=== PATIENT | female | born 1935 | race Caucasian/White ===

== ENCOUNTER 2017-02-03 13:20 | Inpatient (IN) | payer OTHER ==
[~2017-02-03] VITALS: Ht 160 cm; Wt 73.1 kg
[2017-02-03 15:30] VITALS: BP 159/79
[2017-02-03] MEDS ORDERED: DEXTROSE 50% 25 GM / 50ML DISP.SYRIN. IV PRN (15:45)
[2017-02-03] MEDS ORDERED: ACETAMINOPHEN 325 MG TABLET. PO PRN (16:15)
[2017-02-03] MEDS ORDERED: FURO40SO5 INJ (16:15)
[2017-02-03] MEDS ORDERED: FURO-68 INJ (16:15)
[2017-02-03] MEDS ORDERED: GLIP5TAB10 PO (16:22)
[2017-02-03] MEDS ORDERED: AMLO10TA2 PO (16:22)
[2017-02-03] MEDS ORDERED: ATEN50TA PO (16:22)
[2017-02-03] MEDS ORDERED: LOSA100T6 PO (16:23)
[2017-02-03] MEDS ORDERED: ATOR40TA59 PO (16:24)
[2017-02-03] MEDS ORDERED: WARF2TAB PO (16:29)
[2017-02-03] MEDS ORDERED: ACET325T9 PO (16:29)
[2017-02-03 16:35] LABS: BASO % 0 % (0-3); EOS % 1 % (0-3); HEMOGLOBIN 11.7 g/dL (12.0-15.5); LYMPH # 1.4 x10^3/uL (1.0-4.8); LYMPH % 19 % (24-48); MEAN CORPUSCULAR HEMOGLOBIN 33 pg (25-35); MEAN CORPUSCULAR HGB CONC 34 g/dL (31-37); MEAN CORPUSCULAR VOLUME 97 fL (79-100); MONO % 8 % (0-9); NEUT % 71 % (31-73); PLATELET COUNT 355 x10^3/uL (140-400); RED BLOOD COUNT 3.59 x10^6/uL (3.50-5.40); RED CELL DISTRIBUTION WIDTH 15.1 % (11.5-14.5); WHITE BLOOD COUNT 7.2 x10^3/uL (4.0-11.0)
[2017-02-03 16:40] LABS: INR 2.3 (0.8-1.1); PROTHROMBIN TIME PATIENT 23.8 SEC (11.7-14.0)
[2017-02-03 16:56] LABS: CALCIUM 9.2 mg/dL (8.5-10.1); CREATININE 0.9 mg/dL (0.6-1.0); GFR 59.9; MAGNESIUM 1.4 mg/dL (1.8-2.4); POTASSIUM 3.8 mmol/L (3.5-5.1); TOTAL BILIRUBIN 0.9 mg/dL (0.2-1.0); TOTAL PROTEIN 7.9 g/dL (6.4-8.2)
--- NOTE | 2017-02-03 17:13 | RAD ---
CT chest without IV contrast History: Pleural effusion and infiltrates. Comparison: None. Technique: Helical CT of the chest was performed without intravenous contrast. Axial, sagittal, and coronal reconstructions were obtained. One or more of the following individualized dose reduction techniques were utilized for the study: Automated exposure control Adjustment of mA and/or kV according to patient's size Use of iterative reconstruction technique. Findings: Thyroid is symmetric. Trachea and mainstem bronchi appear patent. Aortic atherosclerosis is present. Coronary artery calcifications are present. Cardiac chambers appear enlarged. No pericardial thickening is identified. Small bilateral pleural effusions, right larger than left, are seen. Bilateral lower lobe consolidation is favored to be atelectasis. There is no evidence of mild septal thickening, raising possibility of mild interstitial edema. 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 Impression: 1. Small bilateral pleural effusions, right larger the left. 2. Bilateral lower lobe consolidation, favored to be atelectasis. 3. There may be component of mild interstitial edema.
--- NOTE | 2017-02-03 17:31 | RAD ---
Exam: PA and lateral chest radiograph History: Congestive heart failure. Comparison: 12/14/2005. Findings: Cardiac silhouette appears enlarged. Aortic atherosclerosis is seen. Small bilateral pleural effusions are noted, right larger than left. There is evidence of thickening of the fissure and increased vascularity, compatible with mild congestive heart failure. Bilateral lower lobe densities are seen adjacent to the pleural fluid, could be atelectasis. Impression: Mild congestive heart failure with bilateral pleural effusions.
[2017-02-03] MEDS ORDERED: FUROSEMIDE 40 MG TABLET. PO SCH (18:02)
[2017-02-03] MEDS ORDERED: FUROSEMIDE 40 MG/4 ML VIAL. IVP ONE (18:15)
[2017-02-03] MEDS: WARFARIN 2 MG TABLET. PO SCH (18:32)
[2017-02-03 19:00] VITALS: BP 144/78
[2017-02-03] MEDS: ATORVASTATIN CALCIUM 40 MG TABLET. PO SCH (20:43)
[2017-02-03] MEDS: ATENOLOL 50 MG TABLET. PO SCH (20:43)
[2017-02-03 23:00] VITALS: BP 121/56
[2017-02-04 03:11] VITALS: BP 139/66
[2017-02-04 06:18] LABS: BASO % 1 % (0-3); EOS % 2 % (0-3); HEMATOCRIT 32.8 % (36.0-47.0); HEMOGLOBIN 11.1 g/dL (12.0-15.5); LYMPH # 1.5 x10^3/uL (1.0-4.8); LYMPH % 24 % (24-48); MEAN CORPUSCULAR HEMOGLOBIN 33 pg (25-35); MEAN CORPUSCULAR HGB CONC 34 g/dL (31-37); MEAN CORPUSCULAR VOLUME 97 fL (79-100); MONO % 12 % (0-9); NEUT % 62 % (31-73); PLATELET COUNT 307 x10^3/uL (140-400); RED BLOOD COUNT 3.39 x10^6/uL (3.50-5.40); RED CELL DISTRIBUTION WIDTH 15.2 % (11.5-14.5); WHITE BLOOD COUNT 6.3 x10^3/uL (4.0-11.0)
[2017-02-04 06:36] LABS: CALCIUM 8.7 mg/dL (8.5-10.1); CREATININE 0.9 mg/dL (0.6-1.0); GFR 59.9; POTASSIUM 3.7 mmol/L (3.5-5.1)
[2017-02-04 06:51] LABS: INR 2.6 (0.8-1.1); PROTHROMBIN TIME PATIENT 26.2 SEC (11.7-14.0)
--- NOTE | 2017-02-04 07:16 | RAD ---
Bilateral lower extremity venous ultrasound, 02/03/2017: History: Leg swelling Duplex evaluation of the deep veins in the lower extremities was performed including grayscale, color-flow and spectral Doppler analysis. The femoral and popliteal veins demonstrate normal compressibility and normal responses to distal augmentation maneuvers. Color imaging of those vessels shows no evidence of intraluminal clot. The visualized deep veins in both calves are patent. IMPRESSION: There is no sonographic evidence of deep vein thrombosis in either lower extremity.
[2017-02-04 07:20] VITALS: BP 134/66
[2017-02-04] MEDS: glipiZIDE 5 MG TABLET PO SCH (08:09)
[2017-02-04] MEDS: FUROSEMIDE 40 MG/4 ML VIAL. IVP SCH (08:09)
[2017-02-04] MEDS: LOSARTAN POTASSIUM 50 MG TABLET. PO SCH (08:10)
[2017-02-04] MEDS: ATENOLOL 50 MG TABLET. PO SCH ×2 (08:11→21:45)
[2017-02-04] MEDS: amLODIPine BESYLATE 10 MG TABLET PO SCH (08:11)
--- NOTE | 2017-02-04 09:33 | PDOC ---
Provider Note Provider Note history and physical dictated # [id number] GEE FAIRBANKS MD Feb 04, 2017 09:33
[2017-02-04] MEDS ORDERED: ASPIRIN 325 MG TABLET PO SCH (10:00)
[2017-02-04] MEDS ORDERED: FUROSEMIDE 40 MG/4 ML VIAL. IVP SCH (10:00)
[2017-02-04] MEDS: POTASSIUM CHLORIDE 20 MEQ TABLET.ER. PO SCH (10:16)
[2017-02-04] MEDS: ASPIRIN CHEWABLE 81 MG TABLET. PO SCH (10:16)
[2017-02-04] MEDS ORDERED: ASPIRIN CHEWABLE 81 MG TABLET. PO ONE (10:30)
--- NOTE | 2017-02-04 10:44 | HP ---
ADMIT DATE: 02/03/2017 LOCATION: Room# 530. HISTORY OF PRESENT ILLNESS: The patient is an 81-year-old white female with history of persistent atrial fibrillation treated with Coumadin, also has diabetes mellitus type 2 with microalbuminuria and history of hypertension, who was admitted to [facility] from my office on 02/03/2017 with a 1-week history of dyspnea on exertion and orthopnea and leg edema. The patient was seen in the office last week and was started on the hydrochlorothiazide 25 mg every day, which she took in the past and had a chest x-ray done which showed evidence of pleural effusions and infiltrates in the bases. She only had an occasional cough and no fever. Her symptoms persisted prompting admission to the hospital with suspected acute congestive heart failure. She received Lasix 40 mg IV after admission yesterday. She feels a little bit better. ALLERGIES: INCLUDE FELODIPINE, LATEX, AND LISINOPRIL CAUSED COUGH IN THE PAST. MEDICATIONS: Include Coumadin 2 mg every day, amlodipine 10 mg every day, atenolol 50 mg b.i.d., glipizide 5 mg every day, hydrochlorothiazide 25 mg every day, losartan 100 mg every day, lovastatin 40 mg b.i.d. She also takes metformin 500 mg 2 at breakfast and 1 at supper, Prilosec 20 mg every day p.r.n., tramadol 50 mg every 6 hours p.r.n. PAST MEDICAL HISTORY: Significant for diabetes mellitus type 2 with microalbuminuria, hypertension, and persistent atrial fibrillation, on Coumadin. She also has a history of a cataract extraction, benign colon polypectomy, vitrectomy in the right eye in 2008, esophageal dilatation in 2001. She had a cardiac catheterization showing normal coronary arteries in 1999. She has a history of diverticulosis and hyperlipidemia. SOCIAL HISTORY: She does not drink alcohol nor does she smoke cigarettes. She is . FAMILY HISTORY: Brother had diabetes mellitus. Mother had breast cancer. Sister had a stroke, diabetes mellitus, pancreatic cancer, and coronary artery disease. REVIEW OF SYSTEMS: GENERAL: There has been no fever, chills, or sweats. CARDIOVASCULAR: Denies any chest pain. PULMONARY: She has a shortness of breath with exertion. No orthopnea. ENDOCRINE: She has diabetes mellitus. SKIN: No rashes. NEUROLOGIC: No focal weakness. The rest of systems reviewed are negative except as stated in history of present illness. PHYSICAL EXAMINATION: VITAL SIGNS: Temperature is 98.2 degrees, apical pulse is irregular at 67, respiratory rate is 16, blood pressure is 132/66, oxygen saturation 96% on 2 liters per nasal cannula. HEENT: Eyes: Gaze is conjugate. Mouth: Tongue is midline. NECK: There is no cervical lymphadenopathy or thyroid enlargement. HEART: Reveals an S1, S2. There is no S3 or murmur. LUNGS: Reveal some fine crackles in the bases. Decreased breath sounds in the bases. ABDOMEN: Soft, nontender. EXTREMITIES: Lower extremities without edema. SKIN: No rashes. NEUROLOGIC: Reveals that she is coherent. No focal weakness in the arms or legs. LABORATORY DATA: White count 9.3; hemoglobin 11.1; platelet count 307,000; 62 polys; and 24 lymphocytes. Sodium 134, potassium 3.7, chloride 106, total CO2 of 28, BUN 10, creatinine 0.7, blood sugar 102. ProBNP was increased to 2462. Troponin levels negative x 2. INR today is 2.6. She had a CAT scan of the chest done yesterday without contrast, which showed small bilateral pleural effusions, larger on the right than the left. Bilateral lower lobe consolidation, thought to be secondary to atelectasis and mild interstitial edema. It did show coronary artery calcifications. She also had a chest x-ray done yesterday showed mild congestive heart failure, bilateral pleural effusions. She also had a venous Doppler of both lower extremities which was negative for deep vein thrombosis. EKG was ordered, but I do not see it on the chart. ASSESSMENT: 1. Acute congestive heart failure. The echocardiogram will show off if it is systolic versus diastolic or combined 2. Coronary artery disease manifested by coronary calcifications. 3. Persistent atrial fibrillation, on Coumadin. 4. Hypertension. 5. Hyperlipidemia. 6. Diabetes mellitus type 2 with microalbuminuria. 7. Bilateral pleural effusions, most likely secondary to congestive heart failure. 8. Bilateral lower lobe atelectasis, most likely secondary to pleural effusions. PLAN: At this time is to continue with IV Lasix. Follow her intake and output. We will order some potassium chloride. We will continue with the atenolol and losartan. We will order atorvastatin since lovastatin is not on formulary. We will consult cardiology and pulmonary. Continue her glipizide. Discontinue the metformin congestive heart failure. An echocardiogram has been ordered. Started on aspirin 81 mg every day for coronary artery disease. We will recheck her labs again tomorrow. She had a pretty good diuresis of 2600 mL with a single dose of Lasix yesterday. Of course, we will discontinue the hydrochlorothiazide. GEE FAIRBANKS MD DR: BRUCE/citlaly JOB#: [id number] / [id number]
--- NOTE | 2017-02-04 10:54 | ACF ---
Admit Criteria Forms Admit Criteria Forms Admit Criteria Forms HEART FAILURE: COMMON COMPLICATIONS Clinical Indications for Inpatient Care (Place 'X' for any and all applicable criteria): Ongoing inpatient care may be indicated for heart failure with ANY ONE of the following (1)(2)(3)(4)(5): [ ]I. Ongoing need for care for primary condition requiring frequent therapy adjustments because of changes in cardiac function (eg, drug dosage changes for drugs that are renally metabolized) [ ]II. New-onset heart failure [ ]III. Heart failure with decreased urine output not responsive to attempts to optimize volume status [ ]IV. Acute cardiac ischemia causing or associated with failure [X]V. Complications of heart failure, including ANY ONE of the following: [ ]a) Pericardial effusion [ ]b) Symptomatic pleural effusion [ ]c) O2 saturation <90% or PO2 < 60 mm Hg (8.0 kPa) on room air or require baseline supplemental O2 [ ]d) Tachypnea [X]e) Dyspnea [ ]f) Syncope [ ]g) Change in mental status [ ]h) Acute renal insufficiency that is severe (reduction of more than 50% in estimated glomerular filtration rate from baseline) or progressive reduction of more than 25% in estimated glomerular filtration rate from baseline, with creatinine continuing to rise) [ ]i) Hemodynamic instability [ ]j) Anasarca [ ]k) Clinically significant metabolic abnormalities due to heart failure (eg, new-onset metabolic acidosis) Extended stay beyond goal length of stay for primary condition may be needed until ALL of the following are present(1)(3): [ ]a) Stable and effective diuretic regimen established (or patient on stable dialysis regimen if in chronic renal failure) [ ]b) Breathing comfortably at rest [ ]c) Saturation of arterial oxygen greater than 90% or at acceptable baseline [ ]d) Pulmonary edema absent or improved [ ]e) Hemodynamic stability [ ]f) Volume status acceptable on oral medication [ ]g) Peripheral or sacral edema absent or improved [ ]h) Renal function stable and manageable at a lower level of care [ ]i) Complications (eg, pleural effusion) resolved or manageable at a lower level of care [ ]j) Patient or caregiver has received written discharge instructions or educational material addressing activity level, diet, discharge medications, follow-up appointment, weight monitoring, and what to do if symptoms worsen The original [employer] content created by [employer] has been revised. The portions of the content which have been revised are identified through the use of italic text or in bold, and [facility] has neither reviewed nor approved the modified material.All other unmodified content is copyright [facility] [employer]. Please see references footnoted in the original [facility] [employer] edition 2016 CAIO MITCHELL Feb 04, 2017 10:54
--- NOTE | 2017-02-04 11:25 | PDOC2 ---
CARDIAC CONSULT DATE OF CONSULT Date of Consult DATE: 02/04/17 TIME: 11:24 REASON FOR CONSULT Reason for Consult: AFIB REFERRING PHYSICIAN Referring Physician: Abdulaziz SOURCE Source: Chart review, Patient HISTORY OF PRESENT ILLNESS HISTORY OF PRESENT ILLNESS This is a pleasant 81 yo female admitted for complains of SOA. Reports that in the last 1-2 weeks she has been developing increasing SOA and TIWARI. Recently her symptoms have been worse with notable orthopnea, dry cough, and increasing leg swelling. Denies any CP, palpitations, dizziness or fainting episodes. She has been compliant with her daily medications. Denies any any excessive fluid intake. She has chronic AFIB and is on coumadin. She went ot her PCP yesterday and was told to come to the hospital due to CHF. Denies any CAD, VTE, syncope. Verbalized that her BP have been erratic "up and down" PAST MEDICAL HISTORY Cardiovascular: AFIB, HTN, Hyperlipidemia Pulmonary: No pertinent hx CENTRAL NERVOUS SYSTEM: Other (No pertinent history) GI: Diverticulosis, GERD, Other (esophageal stricture) Heme/Onc: No pertinent hx Hepatobiliary: No pertinent hx Psych: No pertinent hx Musculoskeletal: Osteoarthritis Infectious disease: No pertinent hx ENT: Other (blind right eye) Renal/: Chronic renal insuff Endocrine: Diabetes (2) Dermatology: No pertinent hx PAST SURGICAL HISTORY Past Surgical History: Cataract Removal, Other (benign colon polypectomy; right eye surgery; [facility] 1999 no significant lesions at that time; esophageal dilatation) FAMILY HISTORY Family History: Coronary Artery Disease (sister), Diabetes (brother), Stroke ( sister) SOCIAL HISTORY Smoke: No ALCOHOL: none Drugs: None Lives: with Family CURRENT MEDICATIONS CURRENT MEDICATIONS Current Medications Medications (Trade) Dose Ordered Sig/Liban Route PRN Reason Start Time Stop Time Status Last Admin Dose Admin Amlodipine Besylate (Norvasc) 10 mg DAILY PO 02/04/17 09:00 02/04/17 08:11 Atenolol (Tenormin) 50 mg BID PO 02/03/17 21:00 02/04/17 08:11 Atorvastatin Calcium (Lipitor) 40 mg QHS PO 02/03/17 21:00 02/03/17 20:43 Glipizide (Glucotrol) 5 mg DAILYWBKFT PO 02/04/17 08:00 02/04/17 08:09 Warfarin Sodium (Coumadin) 2 mg DAILY16 PO 02/03/17 17:30 02/03/17 18:32 Losartan Potassium (Cozaar) 100 mg DAILY PO 02/04/17 09:00 02/04/17 08:10 Furosemide (Lasix) 40 mg DAILY IVP 02/04/17 09:00 02/04/17 08:09 Furosemide (Lasix) 40 mg 1X ONCE IVP 02/03/17 18:15 02/03/17 18:16 DC 02/03/17 18:33 Potassium Chloride (Klor-Con) 20 meq DAILY10 PO 02/04/17 10:00 02/04/17 10:16 Aspirin (Children'S Aspirin) 81 mg 1X ONCE PO 02/04/17 10:30 02/04/17 10:31 DC 02/04/17 10:26 ALLERGIES ALLERGIES: Coded Allergies: latex (Verified Allergy, Intermediate, RASH, 02/03/17) felodipine (Verified Adverse Reaction, Mild, COUGH, 02/03/17) lisinopril (Verified Adverse Reaction, Mild, COUGH, 02/03/17) ROS Review of System 14 point ROS evaluated with pertinent positives noted per HPI PHYSICAL EXAM General: Alert, Oriented X3, Cooperative, No acute distress HEENT: Atraumatic, Mucous membr. moist/pink Lungs: Other (bibasilar crackles) Extremities: No cyanosis, Other (1+ bilateral LE pitting edema) Skin: No breakdown, No significant lesion Neuro: Normal speech, Sensation intact Psych/Mental Status: Mental status NL, Mood NL MUSCULOSKELETAL: Osteoarthritic changes both hands VITALS VITALS Vital Signs Date Time Temp Pulse Resp B/P Pulse Ox O2 Delivery O2 Flow Rate FiO2 02/04/17 08:11 67 132/66 02/04/17 08:00 Nasal Cannula 3.0 02/04/17 07:20 98.2 16 96 98.2 LABS Lab: Laboratory Tests Test 02/03/17 15:30 02/03/17 16:24 02/03/17 20:26 02/04/17 06:00 Glucose (Fingerstick) 91mg/dL (70-99) 162mg/dL (70-99) White Blood Count 7.2x10^3/uL (4.0-11.0) 6.3x10^3/uL (4.0-11.0) Red Blood Count 3.59x10^6/uL (3.50-5.40) 3.39x10^6/uL (3.50-5.40) Hemoglobin 11.7g/dL (12.0-15.5) 11.1g/dL (12.0-15.5) Hematocrit 35.0% (36.0-47.0) 32.8% (36.0-47.0) Mean Corpuscular Volume 97fL (79-100) 97fL (79-100) Mean Corpuscular Hemoglobin 33pg (25-35) 33pg (25-35) Mean Corpuscular Hemoglobin Concent 34g/dL (31-37) 34g/dL (31-37) Red Cell Distribution Width 15.1% (11.5-14.5) 15.2% (11.5-14.5) Platelet Count 355x10^3/uL (140-400) 307x10^3/uL (140-400) Neutrophils (%) (Auto) 71% (31-73) 62% (31-73) Lymphocytes (%) (Auto) 19% (24-48) 24% (24-48) Monocytes (%) (Auto) 8% (0-9) 12% (0-9) Eosinophils (%) (Auto) 1% (0-3) 2% (0-3) Basophils (%) (Auto) 0% (0-3) 1% (0-3) Neutrophils # (Auto) 5.1x10^3uL (1.8-7.7) 3.9x10^3uL (1.8-7.7) Lymphocytes # (Auto) 1.4x10^3/uL (1.0-4.8) 1.5x10^3/uL (1.0-4.8) Monocytes # (Auto) 0.6x10^3/uL (0.0-1.1) 0.7x10^3/uL (0.0-1.1) Eosinophils # (Auto) 0.1x10^3/uL (0.0-0.7) 0.1x10^3/uL (0.0-0.7) Basophils # (Auto) 0.0x10^3/uL (0.0-0.2) 0.0x10^3/uL (0.0-0.2) Prothrombin Time 23.8SEC (11.7-14.0) 26.2SEC (11.7-14.0) Prothromb Time International Ratio 2.3 (0.8-1.1) 2.6 (0.8-1.1) D-Dimer (Radha) 5.10ug/mlFEU (0.00-0.50) Sodium Level 141mmol/L (136-145) 144mmol/L (136-145) Potassium Level 3.8mmol/L (3.5-5.1) 3.7mmol/L (3.5-5.1) Chloride Level 105mmol/L (98-107) 106mmol/L (98-107) Carbon Dioxide Level 23mmol/L (21-32) 28mmol/L (21-32) Anion Gap 13 (6-14) 10 (6-14) Blood Urea Nitrogen 21mg/dL (7-20) 17mg/dL (7-20) Creatinine 0.9mg/dL (0.6-1.0) 0.9mg/dL (0.6-1.0) Estimated GFR (Cockcroft-Gault) 59.9 59.9 BUN/Creatinine Ratio 23 (6-20) Glucose Level 100mg/dL (70-99) 102mg/dL (70-99) Calcium Level 9.2mg/dL (8.5-10.1) 8.7mg/dL (8.5-10.1) Magnesium Level 1.4mg/dL (1.8-2.4) Total Bilirubin 0.9mg/dL (0.2-1.0) Aspartate Amino Transf (AST/SGOT) 19U/L (15-37) Alanine Aminotransferase (ALT/SGPT) 23U/L (14-59) Alkaline Phosphatase 88U/L (46-116) Troponin I Quantitative < 0.017ng/mL (0.000-0.055) < 0.017ng/mL (0.000-0.055) CY-Xnw-I-Type Natriuretic Peptide 2462pg/mL (0-449) Total Protein 7.9g/dL (6.4-8.2) Albumin 4.0g/dL (3.4-5.0) Albumin/Globulin Ratio 1.0 (1.0-1.7) ASSESSMENT/PLAN ASSESSMENT/PLAN 1. Acute CHF possible diastolic dysfunction 2. Chronic AFIB: rate controlled. INR therapeutic. Troponin series normal. Was not on tele overnight 3. HTN: initially labile now better. 4. HLP: statin Recommendations 1. Continue with atenolol and coumadin 2. Could not rule out any underlying PINO. paroxysmal RVR episode is another differential but no notable symptoms corresponding to it. Uncontrolled HTN is another differential. Will await TTE result and will make further recommendations. 3. Good UOP, continue with IV lasix therapy. 4. TSH, EKG pending, replace tele Problems: BRANDT DURAN APRN Feb 04, 2017 11:25
[2017-02-04 11:30] VITALS: BP 131/61
[2017-02-04 15:00] VITALS: BP 137/66
--- NOTE | 2017-02-04 15:35 | EKG ---
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
[2017-02-04] MEDS: WARFARIN 2 MG TABLET. PO SCH (16:23)
--- NOTE | 2017-02-04 17:10 | CARD ---
APPROVED REPORT EXAM: Two-dimensional and M-mode echocardiogram with Doppler and color Doppler. Other Information Quality : AverageHR: 69bpm Rhythm : Atrial Fibrillation INDICATION Congestive Heart Failure RISK FACTORS Obesity 2D DIMENSIONS RVDd3.2 (2.9-3.5cm)Left Atrium(2D)4.3 (1.6-4.0cm) IVSd1.1 (0.7-1.1cm)Aortic Root(2D)2.8 (2.0-3.7cm) LVDd4.4 (3.9-5.9cm)LVOT Diameter2.0 (1.8-2.4cm) PWd1.0 (0.7-1.1cm)LVDs3.2 (2.5-4.0cm) FS (%) 27.5 %SV47.1 ml LVEF(%)53.6 (>50%) Aortic Valve AoV Peak Aries.146.1cm/sAoV VTI31.3cm AO Peak GR.8.5mmHgLVOT Peak Aries.90.0cm/s LVOT VTI 20.44cmAO Mean GR.5mmHg MANI (VMAX)1.63fj8BYC (VTI)2.09cm2 Mitral Valve MV E Fsmmlvny123.8cm/sMV DECEL [id number] MV E Mean Gr.2mmHgMV GCH40gg MVA (PHT)3.84cm2 Pulmonary Valve PV Peak Ikkepqne01.7cm/sPV Peak Grad.3mmHg RVOT VTI10.5cm Tricuspid Valve TR P. [id number]/sRAP [id number] TR Peak Gr.84mwPvKIQB12fyKg LEFT VENTRICLE The left ventricle is normal size. There is normal left ventricular wall thickness. Left ventricle sy stolic function is normal. The Ejection Fraction is 50-55%. There is normal LV segmental wall motion. Tissue Doppler imaging reveals moderate left ventricular diastolic dysfunction. There is no ventricu lar septal defect visualized. RIGHT VENTRICLE The right ventricle is mildly dilated. There is normal right ventricular wall thickness. The right ve ntricular systolic function is normal. ATRIA The left atrium is mildly dilated. The right atrium is moderately dilated. The interatrial septum is intact with no evidence for an atrial septal defect or patent foramen ovale as noted on 2-D or Dopple r imaging. AORTIC VALVE The aortic valve is normal in structure and function. Doppler and Color Flow revealed no significant aortic regurgitation. There is no significant aortic valvular stenosis. MITRAL VALVE Mitral annular calcification is mild. The mitral valve leaflets are calcified but open well. There is no evidence of mitral valve prolapse. There is no mitral valve stenosis. Doppler and Color Flow reve aled mild mitral regurgitation. TRICUSPID VALVE Doppler and Color Flow revealed moderate tricuspid regurgitation. The PA pressure was estimated at 73 mmHg.There is severe pulmonary hypertension. PULMONIC VALVE Doppler and Color Flow revealed no pulmonic valvular regurgitation. There is no pulmonic valvular [place] nosis. GREAT VESSELS The aortic root is normal in size. The ascending aorta is normal in size. The IVC is normal in size a nd collapses >50% with inspiration. PERICARDIAL EFFUSION There is no pleural effusion. There is no evidence of significant pericardial effusion. Critical Notification Critical Value: No <Conclusion> Left ventricle systolic function is normal. The Ejection Fraction is 50-55%. There is normal LV segmental wall motion. Tissue Doppler imaging reveals moderate left ventricular diastolic dysfunction. Doppler and Color Flow revealed moderate tricuspid regurgitation. The PA pressure was estimated at 73 mmHg.There is severe pulmonary hypertension.
--- NOTE | 2017-02-04 17:33 | PDOC ---
PULMONARY PROGRESS NOTES Vitals Vital Signs Date Time Temp Pulse Resp B/P Pulse Ox O2 Delivery O2 Flow Rate FiO2 02/04/17 15:00 96.6 73 22 137/66 97 Nasal Cannula 4.0 96.6 Labs Laboratory Tests Test 02/03/17 15:30 02/03/17 16:24 02/03/17 20:26 02/04/17 06:00 Glucose (Fingerstick) 91mg/dL (70-99) 162mg/dL (70-99) White Blood Count 7.2x10^3/uL (4.0-11.0) 6.3x10^3/uL (4.0-11.0) Red Blood Count 3.59x10^6/uL (3.50-5.40) 3.39x10^6/uL (3.50-5.40) Hemoglobin 11.7g/dL (12.0-15.5) 11.1g/dL (12.0-15.5) Hematocrit 35.0% (36.0-47.0) 32.8% (36.0-47.0) Mean Corpuscular Volume 97fL (79-100) 97fL (79-100) Mean Corpuscular Hemoglobin 33pg (25-35) 33pg (25-35) Mean Corpuscular Hemoglobin Concent 34g/dL (31-37) 34g/dL (31-37) Red Cell Distribution Width 15.1% (11.5-14.5) 15.2% (11.5-14.5) Platelet Count 355x10^3/uL (140-400) 307x10^3/uL (140-400) Neutrophils (%) (Auto) 71% (31-73) 62% (31-73) Lymphocytes (%) (Auto) 19% (24-48) 24% (24-48) Monocytes (%) (Auto) 8% (0-9) 12% (0-9) Eosinophils (%) (Auto) 1% (0-3) 2% (0-3) Basophils (%) (Auto) 0% (0-3) 1% (0-3) Neutrophils # (Auto) 5.1x10^3uL (1.8-7.7) 3.9x10^3uL (1.8-7.7) Lymphocytes # (Auto) 1.4x10^3/uL (1.0-4.8) 1.5x10^3/uL (1.0-4.8) Monocytes # (Auto) 0.6x10^3/uL (0.0-1.1) 0.7x10^3/uL (0.0-1.1) Eosinophils # (Auto) 0.1x10^3/uL (0.0-0.7) 0.1x10^3/uL (0.0-0.7) Basophils # (Auto) 0.0x10^3/uL (0.0-0.2) 0.0x10^3/uL (0.0-0.2) Prothrombin Time 23.8SEC (11.7-14.0) 26.2SEC (11.7-14.0) Prothromb Time International Ratio 2.3 (0.8-1.1) 2.6 (0.8-1.1) D-Dimer (Radha) 5.10ug/mlFEU (0.00-0.50) Sodium Level 141mmol/L (136-145) 144mmol/L (136-145) Potassium Level 3.8mmol/L (3.5-5.1) 3.7mmol/L (3.5-5.1) Chloride Level 105mmol/L (98-107) 106mmol/L (98-107) Carbon Dioxide Level 23mmol/L (21-32) 28mmol/L (21-32) Anion Gap 13 (6-14) 10 (6-14) Blood Urea Nitrogen 21mg/dL (7-20) 17mg/dL (7-20) Creatinine 0.9mg/dL (0.6-1.0) 0.9mg/dL (0.6-1.0) Estimated GFR (Cockcroft-Gault) 59.9 59.9 BUN/Creatinine Ratio 23 (6-20) Glucose Level 100mg/dL (70-99) 102mg/dL (70-99) Calcium Level 9.2mg/dL (8.5-10.1) 8.7mg/dL (8.5-10.1) Magnesium Level 1.4mg/dL (1.8-2.4) Total Bilirubin 0.9mg/dL (0.2-1.0) Aspartate Amino Transf (AST/SGOT) 19U/L (15-37) Alanine Aminotransferase (ALT/SGPT) 23U/L (14-59) Alkaline Phosphatase 88U/L (46-116) Troponin I Quantitative < 0.017ng/mL (0.000-0.055) < 0.017ng/mL (0.000-0.055) QD-Vlb-N-Type Natriuretic Peptide 2462pg/mL (0-449) Total Protein 7.9g/dL (6.4-8.2) Albumin 4.0g/dL (3.4-5.0) Albumin/Globulin Ratio 1.0 (1.0-1.7) Test 02/04/17 08:07 02/04/17 11:36 02/04/17 15:00 02/04/17 16:11 Glucose (Fingerstick) 96mg/dL (70-99) 118mg/dL (70-99) 94mg/dL (70-99) Troponin I Quantitative < 0.017ng/mL (0.000-0.055) Laboratory Tests Test 02/03/17 20:26 02/04/17 06:00 02/04/17 08:07 02/04/17 11:36 Glucose (Fingerstick) 162mg/dL (70-99) 96mg/dL (70-99) 118mg/dL (70-99) White Blood Count 6.3x10^3/uL (4.0-11.0) Red Blood Count 3.39x10^6/uL (3.50-5.40) Hemoglobin 11.1g/dL (12.0-15.5) Hematocrit 32.8% (36.0-47.0) Mean Corpuscular Volume 97fL (79-100) Mean Corpuscular Hemoglobin 33pg (25-35) Mean Corpuscular Hemoglobin Concent 34g/dL (31-37) Red Cell Distribution Width 15.2% (11.5-14.5) Platelet Count 307x10^3/uL (140-400) Neutrophils (%) (Auto) 62% (31-73) Lymphocytes (%) (Auto) 24% (24-48) Monocytes (%) (Auto) 12% (0-9) Eosinophils (%) (Auto) 2% (0-3) Basophils (%) (Auto) 1% (0-3) Neutrophils # (Auto) 3.9x10^3uL (1.8-7.7) Lymphocytes # (Auto) 1.5x10^3/uL (1.0-4.8) Monocytes # (Auto) 0.7x10^3/uL (0.0-1.1) Eosinophils # (Auto) 0.1x10^3/uL (0.0-0.7) Basophils # (Auto) 0.0x10^3/uL (0.0-0.2) Prothrombin Time 26.2SEC (11.7-14.0) Prothromb Time International Ratio 2.6 (0.8-1.1) Sodium Level 144mmol/L (136-145) Potassium Level 3.7mmol/L (3.5-5.1) Chloride Level 106mmol/L (98-107) Carbon Dioxide Level 28mmol/L (21-32) Anion Gap 10 (6-14) Blood Urea Nitrogen 17mg/dL (7-20) Creatinine 0.9mg/dL (0.6-1.0) Estimated GFR (Cockcroft-Gault) 59.9 Glucose Level 102mg/dL (70-99) Calcium Level 8.7mg/dL (8.5-10.1) Troponin I Quantitative < 0.017ng/mL (0.000-0.055) Test 02/04/17 15:00 02/04/17 16:11 Troponin I Quantitative < 0.017ng/mL (0.000-0.055) Glucose (Fingerstick) 94mg/dL (70-99) Medications Active Scripts Medications Dose Route/Sig Days Date Category Dose Instructions Tylenol (Acetaminophen) 325 Mg Tablet 1-2 Tab PO PRN Q4HRS 02/03/17 Reported Coumadin (Warfarin Sodium) 2 Mg Tablet 2 Mg PO DAILY 02/03/17 Reported Atorvastatin Calcium 40 Mg Tablet 40 Mg PO DAILY 02/03/17 Reported Losartan Potassium 100 Mg Tablet 100 Mg PO DAILY 02/03/17 Reported Glipizide 5 Mg Tablet 5 Mg PO DAILY 4/25/17 Reported Atenolol 50 Mg Tablet 50 Mg PO BID 02/03/17 Reported Amlodipine Besylate 10 Mg Tablet 10 Mg PO DAILY 02/03/17 Reported Furosemide 40 Mg/4 Ml Solution 40 Mg INJ DAILY 02/03/17 Reported FIRST DOSE NOW Impression . FULL NOTE DICTATED THANKS AGREE WITH CURRENT RX NEEDS AN OUTPT SLEEP STUDY GUERITA CHONG MD Feb 04, 2017 17:33
[2017-02-04 19:00] VITALS: BP 133/59
[2017-02-04] MEDS: ATORVASTATIN CALCIUM 40 MG TABLET. PO SCH (21:45)
[2017-02-04 23:00] VITALS: BP 133/67
[2017-02-05 03:12] VITALS: BP 140/60
[2017-02-05 05:07] LABS: BASO % 0 % (0-3); EOS % 1 % (0-3); HEMATOCRIT 33.4 % (36.0-47.0); HEMOGLOBIN 11.4 g/dL (12.0-15.5); LYMPH # 1.4 x10^3/uL (1.0-4.8); LYMPH % 23 % (24-48); MEAN CORPUSCULAR HEMOGLOBIN 33 pg (25-35); MEAN CORPUSCULAR HGB CONC 34 g/dL (31-37); MEAN CORPUSCULAR VOLUME 96 fL (79-100); MONO % 13 % (0-9); NEUT % 62 % (31-73); PLATELET COUNT 297 x10^3/uL (140-400); RED BLOOD COUNT 3.47 x10^6/uL (3.50-5.40); RED CELL DISTRIBUTION WIDTH 14.8 % (11.5-14.5); WHITE BLOOD COUNT 5.9 x10^3/uL (4.0-11.0)
[2017-02-05 05:22] LABS: INR 2.7 (0.8-1.1)
[2017-02-05 05:25] LABS: CALCIUM 8.5 mg/dL (8.5-10.1); CHOLESTEROL/HDL RATIO 3.3; CREATININE 0.9 mg/dL (0.6-1.0); GFR 59.9; MAGNESIUM 1.5 mg/dL (1.8-2.4); POTASSIUM 3.3 mmol/L (3.5-5.1)
--- NOTE | 2017-02-05 05:40 | CONS ---
DATE OF CONSULTATION: 02/04/2017 ATTENDING PHYSICIAN: Dr. Cintron. DICTATING PHYSICIAN: Dr. Chong. REASON FOR CONSULTATION: The patient is seen in pulmonary consultation at the request of Dr. Cintron for increasing shortness of air and abnormal chest x-ray. HISTORY OF PRESENT ILLNESS: The patient is an 81-year-old female that presented to Dr. Cintron's office with increasing shortness of breath over the last week, paroxysmal nocturnal dyspnea, pedal edema. She has been started on hydrochlorothiazide a week prior to her presentation with no significant improvement. Now she presented with increasing symptoms. She was admitted. I was asked to see her in consultation. Chest x-ray was obtained. I personally reviewed the x-ray, which revealed bilateral infiltrates compatible with CHF. Echocardiogram revealed a pulmonary artery pressure of 68, left ventricular ejection fraction of 50-55%. She had venous Doppler of lower extremities, which were negative. CT confirmed bilateral effusions. PAST MEDICAL HISTORY: Chronic atrial fibrillation on anticoagulation, diabetes type 2, hyperlipidemia. PAST SURGICAL HISTORY: Status post cataract removal, polypectomy. SOCIAL HISTORY: She has never smoked. Denies any alcohol intake. FAMILY HISTORY: Diabetes, breast cancer. REVIEW OF SYSTEMS: As indicated above, otherwise, a 10-point system was reviewed and negative. Sleep hygiene reveals that she awakens unrefreshed from her sleep. No significant apneic spells have been witnessed. She does not describe excessive daytime sleepiness. CURRENT MEDICATIONS: List was reviewed. PHYSICAL EXAMINATION: GENERAL: Obese individual with a body mass index of 29 in no significant respiratory distress. VITAL SIGNS: Stable. O2 saturation greater than 92%, currently on 2 liters. HEENT: Eyes, the sclerae were nonicteric. NECK: Jugular venous distention ____ not be assessed secondary to body habitus. CHEST: Full expansion. LUNGS: Diminished breath sounds in the bases. No wheezes. CARDIOVASCULAR: Regular rate and rhythm with S1, S2, no S3. ABDOMEN: Soft, nontender, nondistended. EXTREMITIES: No clubbing, cyanosis, some edema. NEUROLOGIC: The patient was awake, alert, following commands. A detailed neuro exam was not performed. LABORATORY DATA: Reviewed. Chest x-ray reviewed as indicated above. CT was reviewed. IMPRESSION: 1. Acute respiratory failure secondary to acute heart failure mostly diastolic. Echocardiogram reveals normal systolic function. 2. Secondary pulmonary hypertension. 3. Suspect obstructive sleep apnea. 4. Persistent atrial fibrillation. 5. Hyperlipidemia. 6. Type 2 diabetes. 7. Abnormal x-ray compatible with congestive heart failure infusions. PLAN: 1. Continue diuresis. 2. Outpatient polysomnogram. 3. Avoids salt intake. Dr. Cintron, I do appreciate the privilege in sharing in the patient's care. GUERITA CHONG MD DR: GLEN/citlaly JOB#: [id number] / [id number]
[2017-02-05 07:00] VITALS: BP 145/60
[2017-02-05] MEDS ORDERED: POTASSIUM CHLORIDE 20 MEQ TABLET.ER. PO ONE ×2 (08:15→09:30)
[2017-02-05] MEDS: glipiZIDE 5 MG TABLET PO SCH (09:00)
[2017-02-05] MEDS: POTASSIUM CHLORIDE 20 MEQ TABLET.ER. PO SCH ×3 (09:00→16:51)
[2017-02-05] MEDS: amLODIPine BESYLATE 10 MG TABLET PO SCH (09:00)
[2017-02-05] MEDS: ASPIRIN CHEWABLE 81 MG TABLET. PO SCH (09:00)
[2017-02-05] MEDS: ATENOLOL 50 MG TABLET. PO SCH (09:00)
[2017-02-05] MEDS ORDERED: MAGNESIUM SULFATE 2GM 50 ML IV ONE ×2 (09:00→09:30)
[2017-02-05] MEDS: FUROSEMIDE 40 MG/4 ML VIAL. IVP SCH (09:01)
[2017-02-05] MEDS: LOSARTAN POTASSIUM 50 MG TABLET. PO SCH (09:01)
--- NOTE | 2017-02-05 09:32 | PDOC ---
PROGRESS NOTES Subjective Subjective feels better. good diuresis. lab reviewed. potassium and magnesium are low. echo discussed. has diastolic dysfunction with severe pulmonary hypertension. Objective Objective Vital Signs Date Time Temp Pulse Resp B/P Pulse Ox O2 Delivery O2 Flow Rate FiO2 02/05/17 09:01 62 145/60 02/05/17 07:00 96.3 20 91 Nasal Cannula 2.0 96.3 Intake and Output 02/05/17 06:59 Intake Total 900 ml Output Total 2000 ml Balance -1100 ml Intake Oral 900 ml Output Urine Total 2000 ml # Voids 7 Physical Exam Abdomen: Soft Heart: Regular rate, Normal S1, Normal S2 Extremities: No edema General: Alert HEENT: Atraumatic Lungs: Clear to auscultation, Other (decreased breath sounds in bases) Neuro: Normal speech Psych/Mental Status: Mental status NL Skin: No rashes Assessment Assessment 1. Acute diastolic congestive heart failure 2. Coronary artery disease manifested by coronary calcifications on ct chest 3. Persistent atrial fibrillation, on Coumadin. 4. Hypertension. 5. Hyperlipidemia. 6. Diabetes mellitus type 2 with microalbuminuria. 7. Bilateral pleural effusions, most likely secondary to congestive heart failure. 8. Bilateral lower lobe atelectasis, most likely secondary to pleural effusions severe pulmonary hypertension. rule out PINO other cause hypokalemia hypomagnesemia Plan Plan of Care continue iv lasix replete kcl and iv magnesium today continue oxygen out patient sleep study continue lovenox for dvt prophylaxis continue aspirin and atenolol Comment Review of Relevant I have reviewed the following items fabi (where applicable) has been applied. Labs Laboratory Tests Test 02/03/17 15:30 02/03/17 16:24 02/03/17 20:26 02/04/17 06:00 Glucose (Fingerstick) 91mg/dL (70-99) 162mg/dL (70-99) White Blood Count 7.2x10^3/uL (4.0-11.0) 6.3x10^3/uL (4.0-11.0) Red Blood Count 3.59x10^6/uL (3.50-5.40) 3.39x10^6/uL (3.50-5.40) Hemoglobin 11.7g/dL (12.0-15.5) 11.1g/dL (12.0-15.5) Hematocrit 35.0% (36.0-47.0) 32.8% (36.0-47.0) Mean Corpuscular Volume 97fL (79-100) 97fL (79-100) Mean Corpuscular Hemoglobin 33pg (25-35) 33pg (25-35) Mean Corpuscular Hemoglobin Concent 34g/dL (31-37) 34g/dL (31-37) Red Cell Distribution Width 15.1% (11.5-14.5) 15.2% (11.5-14.5) Platelet Count 355x10^3/uL (140-400) 307x10^3/uL (140-400) Neutrophils (%) (Auto) 71% (31-73) 62% (31-73) Lymphocytes (%) (Auto) 19% (24-48) 24% (24-48) Monocytes (%) (Auto) 8% (0-9) 12% (0-9) Eosinophils (%) (Auto) 1% (0-3) 2% (0-3) Basophils (%) (Auto) 0% (0-3) 1% (0-3) Neutrophils # (Auto) 5.1x10^3uL (1.8-7.7) 3.9x10^3uL (1.8-7.7) Lymphocytes # (Auto) 1.4x10^3/uL (1.0-4.8) 1.5x10^3/uL (1.0-4.8) Monocytes # (Auto) 0.6x10^3/uL (0.0-1.1) 0.7x10^3/uL (0.0-1.1) Eosinophils # (Auto) 0.1x10^3/uL (0.0-0.7) 0.1x10^3/uL (0.0-0.7) Basophils # (Auto) 0.0x10^3/uL (0.0-0.2) 0.0x10^3/uL (0.0-0.2) Prothrombin Time 23.8SEC (11.7-14.0) 26.2SEC (11.7-14.0) Prothromb Time International Ratio 2.3 (0.8-1.1) 2.6 (0.8-1.1) D-Dimer (Radha) 5.10ug/mlFEU (0.00-0.50) Sodium Level 141mmol/L (136-145) 144mmol/L (136-145) Potassium Level 3.8mmol/L (3.5-5.1) 3.7mmol/L (3.5-5.1) Chloride Level 105mmol/L (98-107) 106mmol/L (98-107) Carbon Dioxide Level 23mmol/L (21-32) 28mmol/L (21-32) Anion Gap 13 (6-14) 10 (6-14) Blood Urea Nitrogen 21mg/dL (7-20) 17mg/dL (7-20) Creatinine 0.9mg/dL (0.6-1.0) 0.9mg/dL (0.6-1.0) Estimated GFR (Cockcroft-Gault) 59.9 59.9 BUN/Creatinine Ratio 23 (6-20) Glucose Level 100mg/dL (70-99) 102mg/dL (70-99) Calcium Level 9.2mg/dL (8.5-10.1) 8.7mg/dL (8.5-10.1) Magnesium Level 1.4mg/dL (1.8-2.4) Total Bilirubin 0.9mg/dL (0.2-1.0) Aspartate Amino Transf (AST/SGOT) 19U/L (15-37) Alanine Aminotransferase (ALT/SGPT) 23U/L (14-59) Alkaline Phosphatase 88U/L (46-116) Troponin I Quantitative < 0.017ng/mL (0.000-0.055) < 0.017ng/mL (0.000-0.055) JK-Nhm-M-Type Natriuretic Peptide 2462pg/mL (0-449) Total Protein 7.9g/dL (6.4-8.2) Albumin 4.0g/dL (3.4-5.0) Albumin/Globulin Ratio 1.0 (1.0-1.7) Test 02/04/17 08:07 02/04/17 11:36 02/04/17 15:00 02/04/17 16:11 Glucose (Fingerstick) 96mg/dL (70-99) 118mg/dL (70-99) 94mg/dL (70-99) Troponin I Quantitative < 0.017ng/mL (0.000-0.055) Test 02/05/17 04:30 02/05/17 07:33 White Blood Count 5.9x10^3/uL (4.0-11.0) Red Blood Count 3.47x10^6/uL (3.50-5.40) Hemoglobin 11.4g/dL (12.0-15.5) Hematocrit 33.4% (36.0-47.0) Mean Corpuscular Volume 96fL (79-100) Mean Corpuscular Hemoglobin 33pg (25-35) Mean Corpuscular Hemoglobin Concent 34g/dL (31-37) Red Cell Distribution Width 14.8% (11.5-14.5) Platelet Count 297x10^3/uL (140-400) Neutrophils (%) (Auto) 62% (31-73) Lymphocytes (%) (Auto) 23% (24-48) Monocytes (%) (Auto) 13% (0-9) Eosinophils (%) (Auto) 1% (0-3) Basophils (%) (Auto) 0% (0-3) Neutrophils # (Auto) 3.7x10^3uL (1.8-7.7) Lymphocytes # (Auto) 1.4x10^3/uL (1.0-4.8) Monocytes # (Auto) 0.7x10^3/uL (0.0-1.1) Eosinophils # (Auto) 0.1x10^3/uL (0.0-0.7) Basophils # (Auto) 0.0x10^3/uL (0.0-0.2) Prothrombin Time 27.0SEC (11.7-14.0) Prothromb Time International Ratio 2.7 (0.8-1.1) Sodium Level 141mmol/L (136-145) Potassium Level 3.3mmol/L (3.5-5.1) Chloride Level 106mmol/L (98-107) Carbon Dioxide Level 28mmol/L (21-32) Anion Gap 7 (6-14) Blood Urea Nitrogen 16mg/dL (7-20) Creatinine 0.9mg/dL (0.6-1.0) Estimated GFR (Cockcroft-Gault) 59.9 Glucose Level 93mg/dL (70-99) Calcium Level 8.5mg/dL (8.5-10.1) Magnesium Level 1.5mg/dL (1.8-2.4) Triglycerides Level 79mg/dL (0-150) Cholesterol Level 129mg/dL (0-200) LDL Cholesterol, Calculated 74mg/dL (0-100) VLDL Cholesterol, Calculated 16mg/dL (0-40) Non-HDL Cholesterol Calculated 90mg/dL (0-129) HDL Cholesterol 39mg/dL (40-60) Cholesterol/HDL Ratio 3.3 Glucose (Fingerstick) 101mg/dL (70-99) Laboratory Tests Test 02/04/17 11:36 02/04/17 15:00 02/04/17 16:11 02/05/17 04:30 Glucose (Fingerstick) 118mg/dL (70-99) 94mg/dL (70-99) Troponin I Quantitative < 0.017ng/mL (0.000-0.055) White Blood Count 5.9x10^3/uL (4.0-11.0) Red Blood Count 3.47x10^6/uL (3.50-5.40) Hemoglobin 11.4g/dL (12.0-15.5) Hematocrit 33.4% (36.0-47.0) Mean Corpuscular Volume 96fL (79-100) Mean Corpuscular Hemoglobin 33pg (25-35) Mean Corpuscular Hemoglobin Concent 34g/dL (31-37) Red Cell Distribution Width 14.8% (11.5-14.5) Platelet Count 297x10^3/uL (140-400) Neutrophils (%) (Auto) 62% (31-73) Lymphocytes (%) (Auto) 23% (24-48) Monocytes (%) (Auto) 13% (0-9) Eosinophils (%) (Auto) 1% (0-3) Basophils (%) (Auto) 0% (0-3) Neutrophils # (Auto) 3.7x10^3uL (1.8-7.7) Lymphocytes # (Auto) 1.4x10^3/uL (1.0-4.8) Monocytes # (Auto) 0.7x10^3/uL (0.0-1.1) Eosinophils # (Auto) 0.1x10^3/uL (0.0-0.7) Basophils # (Auto) 0.0x10^3/uL (0.0-0.2) Prothrombin Time 27.0SEC (11.7-14.0) Prothromb Time International Ratio 2.7 (0.8-1.1) Sodium Level 141mmol/L (136-145) Potassium Level 3.3mmol/L (3.5-5.1) Chloride Level 106mmol/L (98-107) Carbon Dioxide Level 28mmol/L (21-32) Anion Gap 7 (6-14) Blood Urea Nitrogen 16mg/dL (7-20) Creatinine 0.9mg/dL (0.6-1.0) Estimated GFR (Cockcroft-Gault) 59.9 Glucose Level 93mg/dL (70-99) Calcium Level 8.5mg/dL (8.5-10.1) Magnesium Level 1.5mg/dL (1.8-2.4) Triglycerides Level 79mg/dL (0-150) Cholesterol Level 129mg/dL (0-200) LDL Cholesterol, Calculated 74mg/dL (0-100) VLDL Cholesterol, Calculated 16mg/dL (0-40) Non-HDL Cholesterol Calculated 90mg/dL (0-129) HDL Cholesterol 39mg/dL (40-60) Cholesterol/HDL Ratio 3.3 Test 02/05/17 07:33 Glucose (Fingerstick) 101mg/dL (70-99) Medications Current Medications Dextrose (Dextrose 50%-Water Syringe) 12.5 gm PRN Q15MIN PRN IV SEE COMMENTS; Start 02/03/17 at 15:45 Acetaminophen (Tylenol) 325 mg PRN Q4HRS PRN PO MILD PAIN; Start 02/03/17 at 16 :15 Amlodipine Besylate (Norvasc) 10 mg DAILY PO Last administered on 02/05/17 09: 00; Start 02/04/17 at 09:00 Atenolol (Tenormin) 50 mg BID PO Last administered on 02/05/17 09:00; Start at 21:00 Atorvastatin Calcium (Lipitor) 40 mg QHS PO Last administered on 02/04/17 21: 45; Start 02/03/17 at 21:00 Furosemide (Lasix) 40 mg DAILY PO ; Start 02/03/17 at 18:02; Status Cancel Glipizide (Glucotrol) 5 mg DAILYWBKFT PO Last administered on 02/05/17 09:00; Start 02/04/17 at 08:00 Warfarin Sodium (Coumadin) 2 mg DAILY16 PO Last administered on 02/04/17 16:23 ; Start 02/03/17 at 17:30 Losartan Potassium (Cozaar) 100 mg DAILY PO Last administered on 02/05/17 09: 01; Start 02/04/17 at 09:00 Warfarin Sodium (Coumadin Per Physician) 1 each PRN DAILY PRN MC SEE COMMENTS Last administered on 02/04/17 13:44; Start 02/03/17 at 17:15 Furosemide (Lasix) 40 mg DAILY IVP Last administered on 02/05/17 09:01; Start 02/04/17 at 09:00 Furosemide (Lasix) 40 mg 1X ONCE IVP Last administered on 02/03/17 18:33; Start 02/03/17 at 18:15; Stop 02/03/17 at 18:16; Status DC Furosemide (Lasix) 40 mg DAILY IVP ; Start 02/04/17 at 10:00; Stop 02/04/17 at 10:00; Status DC Potassium Chloride (Klor-Con) 20 meq DAILY10 PO Last administered on 02/05/17 09:00; Start 02/04/17 at 10:00 Aspirin (Dannielle Aspirin) 81 mg DAILYWBKFT PO ; Start 02/04/17 at 10:00; Stop at 10:09; Status DC Aspirin (Children'S Aspirin) 81 mg DAILYWBKFT PO Last administered on 09:00; Start 02/04/17 at 10:15 Aspirin (Children'S Aspirin) 81 mg 1X ONCE PO Last administered on 02/04/17 10:26; Start 02/04/17 at 10:30; Stop 02/04/17 at 10:31; Status DC Potassium Chloride 40 meq 40 meq 1X ONCE PO Last administered on 02/05/17 08: 59; Start 02/05/17 at 08:15; Stop 02/05/17 at 08:16; Status DC Magnesium Sulfate/ Dextrose (Magnesium Sulfate PREMIX 2GM) 50 ml @ 25 mls/hr 1X ONCE IV Last administered on 02/05/17 08:59; Start 02/05/17 at 09:00; Stop 02/05/17 at 10:59 Active Scripts Active Reported Tylenol (Acetaminophen) 325 Mg Tablet 1-2 Tab PO PRN Q4HRS Coumadin (Warfarin Sodium) 2 Mg Tablet 2 Mg PO DAILY Atorvastatin Calcium 40 Mg Tablet 40 Mg PO DAILY Losartan Potassium 100 Mg Tablet 100 Mg PO DAILY Glipizide 5 Mg Tablet 5 Mg PO DAILY Atenolol 50 Mg Tablet 50 Mg PO BID Amlodipine Besylate 10 Mg Tablet 10 Mg PO DAILY Furosemide 40 Mg/4 Ml Solution 40 Mg INJ DAILY FIRST DOSE NOW Vitals/I & O Vital Sign - Last 24 Hours 02/04/17 02/04/17 02/04/17 02/04/17 11:30 15:00 19:00 20:12 Temp 97.9 96.6 97.6 97.9 96.6 97.6 Pulse 78 73 104 Resp 16 20 B/P 131/61 137/66 133/59 Pulse Ox 98 97 92 O2 Delivery BiPAP/CPAP Nasal Cannula Nasal Cannula Nasal Cannula O2 Flow Rate 2.0 4.0 2.0 02/04/17 02/04/17 02/05/17 02/05/17 21:45 23:00 03:12 07:00 Temp 97.6 97.5 96.3 97.6 97.5 96.3 Pulse 104 76 69 62 Resp 20 20 B/P 133/59 133/67 140/60 145/60 Pulse Ox 91 96 91 O2 Delivery Nasal Cannula Nasal Cannula Nasal Cannula O2 Flow Rate 2.0 02/05/17 02/05/17 02/05/17 09:00 09:00 09:01 Pulse 62 62 62 B/P 145/60 145/60 145/60 Intake and Output 02/04/17 02/04/17 02/05/17 14:59 22:59 06:59 Intake Total 690 ml 210 ml Output Total 1700 ml 300 ml Balance 690 ml -1490 ml -300 ml GEE FAIRBANKS MD Feb 05, 2017 09:32
[2017-02-05 11:00] VITALS: BP 128/53
--- NOTE | 2017-02-05 12:21 | PDOC ---
[facility] CARE[facility] SERVICES DIRECTOR 02/05/17 1221: CARDIO Progress Notes Date and Time Date of Service 02/05/2017 Time of Evaluation 1200 Subjective Subjective: No Chest Pain, No shortness of breath, No Palpitations, No Dizziness, Other (feels better today) Vitals Vitals Vital Signs Date Time Temp Pulse Resp B/P Pulse Ox O2 Delivery O2 Flow Rate FiO2 02/05/17 09:01 62 145/60 02/05/17 07:00 96.3 20 91 Nasal Cannula 2.0 96.3 Weight Weight [ ] Input and Output Intake and Output Intake and Output 02/05/17 06:59 Intake Total 900 ml Output Total 2000 ml Balance -1100 ml Intake Oral 900 ml Output Urine Total 2000 ml # Voids 7 Laboratory Labs Laboratory Tests Test 02/04/17 15:00 02/04/17 16:11 02/05/17 04:30 02/05/17 07:33 Troponin I Quantitative < 0.017ng/mL (0.000-0.055) Glucose (Fingerstick) 94mg/dL (70-99) 101mg/dL (70-99) White Blood Count 5.9x10^3/uL (4.0-11.0) Red Blood Count 3.47x10^6/uL (3.50-5.40) Hemoglobin 11.4g/dL (12.0-15.5) Hematocrit 33.4% (36.0-47.0) Mean Corpuscular Volume 96fL (79-100) Mean Corpuscular Hemoglobin 33pg (25-35) Mean Corpuscular Hemoglobin Concent 34g/dL (31-37) Red Cell Distribution Width 14.8% (11.5-14.5) Platelet Count 297x10^3/uL (140-400) Neutrophils (%) (Auto) 62% (31-73) Lymphocytes (%) (Auto) 23% (24-48) Monocytes (%) (Auto) 13% (0-9) Eosinophils (%) (Auto) 1% (0-3) Basophils (%) (Auto) 0% (0-3) Neutrophils # (Auto) 3.7x10^3uL (1.8-7.7) Lymphocytes # (Auto) 1.4x10^3/uL (1.0-4.8) Monocytes # (Auto) 0.7x10^3/uL (0.0-1.1) Eosinophils # (Auto) 0.1x10^3/uL (0.0-0.7) Basophils # (Auto) 0.0x10^3/uL (0.0-0.2) Prothrombin Time 27.0SEC (11.7-14.0) Prothromb Time International Ratio 2.7 (0.8-1.1) Sodium Level 141mmol/L (136-145) Potassium Level 3.3mmol/L (3.5-5.1) Chloride Level 106mmol/L (98-107) Carbon Dioxide Level 28mmol/L (21-32) Anion Gap 7 (6-14) Blood Urea Nitrogen 16mg/dL (7-20) Creatinine 0.9mg/dL (0.6-1.0) Estimated GFR (Cockcroft-Gault) 59.9 Glucose Level 93mg/dL (70-99) Calcium Level 8.5mg/dL (8.5-10.1) Magnesium Level 1.5mg/dL (1.8-2.4) Triglycerides Level 79mg/dL (0-150) Cholesterol Level 129mg/dL (0-200) LDL Cholesterol, Calculated 74mg/dL (0-100) VLDL Cholesterol, Calculated 16mg/dL (0-40) Non-HDL Cholesterol Calculated 90mg/dL (0-129) HDL Cholesterol 39mg/dL (40-60) Cholesterol/HDL Ratio 3.3 Test 02/05/17 11:15 Glucose (Fingerstick) 153mg/dL (70-99) Physical Exam HEENT: Neck Supple W Full Motion Chest: Symmetric LUNGS: Other (bibasilar crackles) Heart: S1S2, RRR (AFIB with episodes of HR in the 40s) Abdomen: Soft N/T Extremities: No Calf Tenderness, Other (trace to 1 + bilateral LE edema) Neurology: alert, oriented, follow commands Assessment Assessment 1. Acute CHF diastolic dysfunction: improved. TTE with normal wall motion and preserved EF. Suspect from #2. 2. Severe pulmonary HTN: nonsmoker. suspect associated PINO. Pulmonary following 2. Chronic AFIB: rate controlled. INR 2.7. Episodes of HR 40s, mainly at sleep ( vagal) 3. HTN: controlled 4. HLP: statin 5. Hypokalemia/Hypomagnesemia Recommendations 1. Continue with coumadin per PCP. Will decrease atenolol dosing 2. Would consider event monitor with notable bradycardia episodes 3. Continue IV lasix therapy 4. Replace Mg and K. 5. TSH pending ELIZABETH VAN MD 02/05/17 [id number]: CARDIO Progress Notes Plan Plan Pt. seen and examined. Agree with above [employer] note. No acute events overnight. Pt. feels better this a.m. I had a long discussion with her and her and explained diastolic dysfunction and pulm HTN Suspect her pulm HTN is multifactorial. Will continue diuresis and stabilization. Will repeat echo in 2-4 weeks, if she still has elevated pressures then can consider outpt RHC. Will f/u tomorrow. Anticipate dc in a.m if ok with others. BRANDT DURAN APRN Feb 05, 2017 12:21 ELIZABETH VAN MD Feb 05, 2017 22:56
[2017-02-05 15:00] VITALS: BP 132/65
[2017-02-05] MEDS: WARFARIN 2 MG TABLET. PO SCH (16:49)
[2017-02-05 19:00] VITALS: BP 153/61
--- NOTE | 2017-02-05 20:09 | PDOC ---
PULMONARY PROGRESS NOTES Subjective PT FEELS BETTER Vitals Vital Signs Date Time Temp Pulse Resp B/P Pulse Ox O2 Delivery O2 Flow Rate FiO2 02/05/17 15:00 96.8 78 20 132/65 96 Nasal Cannula 2.0 96.8 General: Alert Lungs: Clear, Crackles Cardiovascular: S1, S2 Abdomen: Soft Neuro Exam: Alert Extremities: Other (EDEMA) Skin: Warm Labs Laboratory Tests Test 02/03/17 20:26 02/04/17 06:00 02/04/17 08:07 02/04/17 11:36 Glucose (Fingerstick) 162mg/dL (70-99) 96mg/dL (70-99) 118mg/dL (70-99) White Blood Count 6.3x10^3/uL (4.0-11.0) Red Blood Count 3.39x10^6/uL (3.50-5.40) Hemoglobin 11.1g/dL (12.0-15.5) Hematocrit 32.8% (36.0-47.0) Mean Corpuscular Volume 97fL (79-100) Mean Corpuscular Hemoglobin 33pg (25-35) Mean Corpuscular Hemoglobin Concent 34g/dL (31-37) Red Cell Distribution Width 15.2% (11.5-14.5) Platelet Count 307x10^3/uL (140-400) Neutrophils (%) (Auto) 62% (31-73) Lymphocytes (%) (Auto) 24% (24-48) Monocytes (%) (Auto) 12% (0-9) Eosinophils (%) (Auto) 2% (0-3) Basophils (%) (Auto) 1% (0-3) Neutrophils # (Auto) 3.9x10^3uL (1.8-7.7) Lymphocytes # (Auto) 1.5x10^3/uL (1.0-4.8) Monocytes # (Auto) 0.7x10^3/uL (0.0-1.1) Eosinophils # (Auto) 0.1x10^3/uL (0.0-0.7) Basophils # (Auto) 0.0x10^3/uL (0.0-0.2) Prothrombin Time 26.2SEC (11.7-14.0) Prothromb Time International Ratio 2.6 (0.8-1.1) Sodium Level 144mmol/L (136-145) Potassium Level 3.7mmol/L (3.5-5.1) Chloride Level 106mmol/L (98-107) Carbon Dioxide Level 28mmol/L (21-32) Anion Gap 10 (6-14) Blood Urea Nitrogen 17mg/dL (7-20) Creatinine 0.9mg/dL (0.6-1.0) Estimated GFR (Cockcroft-Gault) 59.9 Glucose Level 102mg/dL (70-99) Calcium Level 8.7mg/dL (8.5-10.1) Troponin I Quantitative < 0.017ng/mL (0.000-0.055) Test 02/04/17 15:00 02/04/17 16:11 02/05/17 04:30 02/05/17 07:33 Troponin I Quantitative < 0.017ng/mL (0.000-0.055) Glucose (Fingerstick) 94mg/dL (70-99) 101mg/dL (70-99) White Blood Count 5.9x10^3/uL (4.0-11.0) Red Blood Count 3.47x10^6/uL (3.50-5.40) Hemoglobin 11.4g/dL (12.0-15.5) Hematocrit 33.4% (36.0-47.0) Mean Corpuscular Volume 96fL (79-100) Mean Corpuscular Hemoglobin 33pg (25-35) Mean Corpuscular Hemoglobin Concent 34g/dL (31-37) Red Cell Distribution Width 14.8% (11.5-14.5) Platelet Count 297x10^3/uL (140-400) Neutrophils (%) (Auto) 62% (31-73) Lymphocytes (%) (Auto) 23% (24-48) Monocytes (%) (Auto) 13% (0-9) Eosinophils (%) (Auto) 1% (0-3) Basophils (%) (Auto) 0% (0-3) Neutrophils # (Auto) 3.7x10^3uL (1.8-7.7) Lymphocytes # (Auto) 1.4x10^3/uL (1.0-4.8) Monocytes # (Auto) 0.7x10^3/uL (0.0-1.1) Eosinophils # (Auto) 0.1x10^3/uL (0.0-0.7) Basophils # (Auto) 0.0x10^3/uL (0.0-0.2) Prothrombin Time 27.0SEC (11.7-14.0) Prothromb Time International Ratio 2.7 (0.8-1.1) Sodium Level 141mmol/L (136-145) Potassium Level 3.3mmol/L (3.5-5.1) Chloride Level 106mmol/L (98-107) Carbon Dioxide Level 28mmol/L (21-32) Anion Gap 7 (6-14) Blood Urea Nitrogen 16mg/dL (7-20) Creatinine 0.9mg/dL (0.6-1.0) Estimated GFR (Cockcroft-Gault) 59.9 Glucose Level 93mg/dL (70-99) Calcium Level 8.5mg/dL (8.5-10.1) Magnesium Level 1.5mg/dL (1.8-2.4) Triglycerides Level 79mg/dL (0-150) Cholesterol Level 129mg/dL (0-200) LDL Cholesterol, Calculated 74mg/dL (0-100) VLDL Cholesterol, Calculated 16mg/dL (0-40) Non-HDL Cholesterol Calculated 90mg/dL (0-129) HDL Cholesterol 39mg/dL (40-60) Cholesterol/HDL Ratio 3.3 Thyroid Stimulating Hormone (TSH) 2.026uIU/mL (0.358-3.74) Test 02/05/17 11:15 02/05/17 16:14 Glucose (Fingerstick) 153mg/dL (70-99) 79mg/dL (70-99) Laboratory Tests Test 02/05/17 04:30 02/05/17 07:33 02/05/17 11:15 02/05/17 16:14 White Blood Count 5.9x10^3/uL (4.0-11.0) Red Blood Count 3.47x10^6/uL (3.50-5.40) Hemoglobin 11.4g/dL (12.0-15.5) Hematocrit 33.4% (36.0-47.0) Mean Corpuscular Volume 96fL (79-100) Mean Corpuscular Hemoglobin 33pg (25-35) Mean Corpuscular Hemoglobin Concent 34g/dL (31-37) Red Cell Distribution Width 14.8% (11.5-14.5) Platelet Count 297x10^3/uL (140-400) Neutrophils (%) (Auto) 62% (31-73) Lymphocytes (%) (Auto) 23% (24-48) Monocytes (%) (Auto) 13% (0-9) Eosinophils (%) (Auto) 1% (0-3) Basophils (%) (Auto) 0% (0-3) Neutrophils # (Auto) 3.7x10^3uL (1.8-7.7) Lymphocytes # (Auto) 1.4x10^3/uL (1.0-4.8) Monocytes # (Auto) 0.7x10^3/uL (0.0-1.1) Eosinophils # (Auto) 0.1x10^3/uL (0.0-0.7) Basophils # (Auto) 0.0x10^3/uL (0.0-0.2) Prothrombin Time 27.0SEC (11.7-14.0) Prothromb Time International Ratio 2.7 (0.8-1.1) Sodium Level 141mmol/L (136-145) Potassium Level 3.3mmol/L (3.5-5.1) Chloride Level 106mmol/L (98-107) Carbon Dioxide Level 28mmol/L (21-32) Anion Gap 7 (6-14) Blood Urea Nitrogen 16mg/dL (7-20) Creatinine 0.9mg/dL (0.6-1.0) Estimated GFR (Cockcroft-Gault) 59.9 Glucose Level 93mg/dL (70-99) Calcium Level 8.5mg/dL (8.5-10.1) Magnesium Level 1.5mg/dL (1.8-2.4) Triglycerides Level 79mg/dL (0-150) Cholesterol Level 129mg/dL (0-200) LDL Cholesterol, Calculated 74mg/dL (0-100) VLDL Cholesterol, Calculated 16mg/dL (0-40) Non-HDL Cholesterol Calculated 90mg/dL (0-129) HDL Cholesterol 39mg/dL (40-60) Cholesterol/HDL Ratio 3.3 Thyroid Stimulating Hormone (TSH) 2.026uIU/mL (0.358-3.74) Glucose (Fingerstick) 101mg/dL (70-99) 153mg/dL (70-99) 79mg/dL (70-99) Medications Active Scripts Medications Dose Route/Sig Days Date Category Dose Instructions Tylenol (Acetaminophen) 325 Mg Tablet 1-2 Tab PO PRN Q4HRS 02/03/17 Reported Coumadin (Warfarin Sodium) 2 Mg Tablet 2 Mg PO DAILY 02/03/17 Reported Atorvastatin Calcium 40 Mg Tablet 40 Mg PO DAILY 02/03/17 Reported Losartan Potassium 100 Mg Tablet 100 Mg PO DAILY 02/03/17 Reported Glipizide 5 Mg Tablet 5 Mg PO DAILY 02/03/17 Reported Atenolol 50 Mg Tablet 50 Mg PO BID 02/03/17 Reported Amlodipine Besylate 10 Mg Tablet 10 Mg PO DAILY 02/03/17 Reported Furosemide 40 Mg/4 Ml Solution 40 Mg INJ DAILY 02/03/17 Reported FIRST DOSE NOW Impression . IMPRESSION: 1. Acute respiratory failure secondary to acute heart failure mostly diastolic. Echocardiogram reveals normal systolic function. 2. Secondary pulmonary hypertension. 3. Suspect obstructive sleep apnea. 4. Persistent atrial fibrillation. 5. Hyperlipidemia. 6. Type 2 diabetes. 7. Abnormal x-ray compatible with congestive heart failure infusions. Plan . OUT PT SLEEP STUDY DIURESE 6 MINUTE WALK AT TIMES ECHO OVERESTIMATES THE PAP MAY NEED A RIGHT HEART CATH TO CONFIRM PAP GUERITA CHONG MD Feb 05, 2017 20:09
[2017-02-05] MEDS: ATORVASTATIN CALCIUM 40 MG TABLET. PO SCH (20:33)
[2017-02-05] MEDS: ATENOLOL 25 MG TABLET. PO SCH (20:35)
[2017-02-05] MEDS ORDERED: POTASSIUM CHLORIDE 20 MEQ TABLET.ER. PO SCH (21:00)
[2017-02-05 23:00] VITALS: BP 139/50
[2017-02-06 03:00] VITALS: BP 142/60
[2017-02-06 05:19] LABS: INR 2.2 (0.8-1.1); PROTHROMBIN TIME PATIENT 22.9 SEC (11.7-14.0)
[2017-02-06 05:44] LABS: CALCIUM 8.9 mg/dL (8.5-10.1); CREATININE 0.9 mg/dL (0.6-1.0); GFR 59.9; MAGNESIUM 1.8 mg/dL (1.8-2.4); POTASSIUM 3.5 mmol/L (3.5-5.1)
[2017-02-06 07:00] VITALS: BP 131/84
[2017-02-06] MEDS: glipiZIDE 5 MG TABLET PO SCH (08:40)
[2017-02-06] MEDS: ASPIRIN CHEWABLE 81 MG TABLET. PO SCH (08:40)
[2017-02-06] MEDS: LOSARTAN POTASSIUM 50 MG TABLET. PO SCH (08:41)
[2017-02-06] MEDS: POTASSIUM CHLORIDE 20 MEQ TABLET.ER. PO SCH (08:41)
[2017-02-06] MEDS: FUROSEMIDE 40 MG/4 ML VIAL. IVP SCH (08:41)
[2017-02-06] MEDS: ATENOLOL 25 MG TABLET. PO SCH (08:42)
[2017-02-06] MEDS: amLODIPine BESYLATE 10 MG TABLET PO SCH (08:59)
--- NOTE | 2017-02-06 10:40 | PDOC ---
PROGRESS NOTES Subjective Subjective feels well. not short of breath. ready for dismissal. lab reviewed. Objective Objective Vital Signs Date Time Temp Pulse Resp B/P Pulse Ox O2 Delivery O2 Flow Rate FiO2 02/06/17 08:59 89 131/84 02/06/17 07:00 97.7 18 97 Nasal Cannula 2.0 97.7 Intake and Output 02/06/17 07:00 Intake Total 1450 ml Output Total 800 ml Balance 650 ml Intake Oral 1450 ml Output Urine Total 800 ml # Voids 2 Physical Exam Abdomen: Soft Heart: Regular rate, Normal S1, Normal S2 Extremities: No edema General: Alert HEENT: Atraumatic Lungs: Clear to auscultation Neuro: Normal speech Psych/Mental Status: Mental status NL Skin: No rashes Assessment Assessment Problems Medical Problems:1. Acute diastolic congestive heart failure compensated 2. Coronary artery disease manifested by coronary calcifications on ct chest 3. Persistent atrial fibrillation, on Coumadin. 4. Hypertension. 5. Hyperlipidemia. 6. Diabetes mellitus type 2 with microalbuminuria. 7. Bilateral pleural effusions, most likely secondary to congestive heart failure. 8. Bilateral lower lobe atelectasis, most likely secondary to pleural effusions severe pulmonary hypertension. rule out PINO other cause hypokalemia resolved hypomagnesemia resolved (1) CHF (congestive heart failure) Status: Acute Plan Plan of Care switch to oral lasix dismiss today Comment Review of Relevant I have reviewed the following items fabi (where applicable) has been applied. Labs Laboratory Tests Test 02/04/17 11:36 02/04/17 15:00 02/04/17 16:11 02/05/17 04:30 Glucose (Fingerstick) 118mg/dL (70-99) 94mg/dL (70-99) Troponin I Quantitative < 0.017ng/mL (0.000-0.055) White Blood Count 5.9x10^3/uL (4.0-11.0) Red Blood Count 3.47x10^6/uL (3.50-5.40) Hemoglobin 11.4g/dL (12.0-15.5) Hematocrit 33.4% (36.0-47.0) Mean Corpuscular Volume 96fL (79-100) Mean Corpuscular Hemoglobin 33pg (25-35) Mean Corpuscular Hemoglobin Concent 34g/dL (31-37) Red Cell Distribution Width 14.8% (11.5-14.5) Platelet Count 297x10^3/uL (140-400) Neutrophils (%) (Auto) 62% (31-73) Lymphocytes (%) (Auto) 23% (24-48) Monocytes (%) (Auto) 13% (0-9) Eosinophils (%) (Auto) 1% (0-3) Basophils (%) (Auto) 0% (0-3) Neutrophils # (Auto) 3.7x10^3uL (1.8-7.7) Lymphocytes # (Auto) 1.4x10^3/uL (1.0-4.8) Monocytes # (Auto) 0.7x10^3/uL (0.0-1.1) Eosinophils # (Auto) 0.1x10^3/uL (0.0-0.7) Basophils # (Auto) 0.0x10^3/uL (0.0-0.2) Prothrombin Time 27.0SEC (11.7-14.0) Prothromb Time International Ratio 2.7 (0.8-1.1) Sodium Level 141mmol/L (136-145) Potassium Level 3.3mmol/L (3.5-5.1) Chloride Level 106mmol/L (98-107) Carbon Dioxide Level 28mmol/L (21-32) Anion Gap 7 (6-14) Blood Urea Nitrogen 16mg/dL (7-20) Creatinine 0.9mg/dL (0.6-1.0) Estimated GFR (Cockcroft-Gault) 59.9 Glucose Level 93mg/dL (70-99) Calcium Level 8.5mg/dL (8.5-10.1) Magnesium Level 1.5mg/dL (1.8-2.4) Triglycerides Level 79mg/dL (0-150) Cholesterol Level 129mg/dL (0-200) LDL Cholesterol, Calculated 74mg/dL (0-100) VLDL Cholesterol, Calculated 16mg/dL (0-40) Non-HDL Cholesterol Calculated 90mg/dL (0-129) HDL Cholesterol 39mg/dL (40-60) Cholesterol/HDL Ratio 3.3 Thyroid Stimulating Hormone (TSH) 2.026uIU/mL (0.358-3.74) Test 4/27/17 07:33 02/05/17 11:15 02/05/17 16:14 02/05/17 20:26 Glucose (Fingerstick) 101mg/dL (70-99) 153mg/dL (70-99) 79mg/dL (70-99) 177mg/dL (70-99) Test 02/06/17 04:10 02/06/17 07:51 Prothrombin Time 22.9SEC (11.7-14.0) Prothromb Time International Ratio 2.2 (0.8-1.1) Sodium Level 140mmol/L (136-145) Potassium Level 3.5mmol/L (3.5-5.1) Chloride Level 105mmol/L (98-107) Carbon Dioxide Level 28mmol/L (21-32) Anion Gap 7 (6-14) Blood Urea Nitrogen 17mg/dL (7-20) Creatinine 0.9mg/dL (0.6-1.0) Estimated GFR (Cockcroft-Gault) 59.9 Glucose Level 95mg/dL (70-99) Calcium Level 8.9mg/dL (8.5-10.1) Magnesium Level 1.8mg/dL (1.8-2.4) Glucose (Fingerstick) 96mg/dL (70-99) Laboratory Tests Test 02/05/17 11:15 02/05/17 16:14 02/05/17 20:26 02/06/17 04:10 Glucose (Fingerstick) 153mg/dL (70-99) 79mg/dL (70-99) 177mg/dL (70-99) Prothrombin Time 22.9SEC (11.7-14.0) Prothromb Time International Ratio 2.2 (0.8-1.1) Sodium Level 140mmol/L (136-145) Potassium Level 3.5mmol/L (3.5-5.1) Chloride Level 105mmol/L (98-107) Carbon Dioxide Level 28mmol/L (21-32) Anion Gap 7 (6-14) Blood Urea Nitrogen 17mg/dL (7-20) Creatinine 0.9mg/dL (0.6-1.0) Estimated GFR (Cockcroft-Gault) 59.9 Glucose Level 95mg/dL (70-99) Calcium Level 8.9mg/dL (8.5-10.1) Magnesium Level 1.8mg/dL (1.8-2.4) Test 02/06/17 07:51 Glucose (Fingerstick) 96mg/dL (70-99) Medications Current Medications Dextrose (Dextrose 50%-Water Syringe) 12.5 gm PRN Q15MIN PRN IV SEE COMMENTS; Start 02/03/17 at 15:45 Acetaminophen (Tylenol) 325 mg PRN Q4HRS PRN PO MILD PAIN; Start 02/03/17 at 16 :15 Amlodipine Besylate (Norvasc) 10 mg DAILY PO Last administered on 02/06/17 08: 59; Start 02/04/17 at 09:00 Atenolol (Tenormin) 50 mg BID PO Last administered on 02/05/17 09:00; Start at 21:00; Stop 02/05/17 at 12:11; Status DC Atorvastatin Calcium (Lipitor) 40 mg QHS PO Last administered on 02/05/17 20: 33; Start 02/03/17 at 21:00 Furosemide (Lasix) 40 mg DAILY PO ; Start 02/03/17 at 18:02; Status Cancel Glipizide (Glucotrol) 5 mg DAILYWBKFT PO Last administered on 02/06/17 08:40; Start 02/04/17 at 08:00 Warfarin Sodium (Coumadin) 2 mg DAILY16 PO Last administered on 02/05/17 16:49 ; Start 02/03/17 at 17:30 Losartan Potassium (Cozaar) 100 mg DAILY PO Last administered on 02/06/17 08: 41; Start 02/04/17 at 09:00 Warfarin Sodium (Coumadin Per Physician) 1 each PRN DAILY PRN MC SEE COMMENTS Last administered on 02/05/17 14:42; Start 02/03/17 at 17:15 Furosemide (Lasix) 40 mg DAILY IVP Last administered on 02/06/17 08:41; Start 02/04/17 at 09:00 Furosemide (Lasix) 40 mg 1X ONCE IVP Last administered on 02/03/17 18:33; Start 02/03/17 at 18:15; Stop 02/03/17 at 18:16; Status DC Furosemide (Lasix) 40 mg DAILY IVP ; Start 02/04/17 at 10:00; Stop 02/04/17 at 10:00; Status DC Potassium Chloride (Klor-Con) 20 meq DAILY10 PO Last administered on 02/05/17 09:00; Start 02/04/17 at 10:00; Stop 02/05/17 at 09:27; Status DC Aspirin (Dannielle Aspirin) 81 mg DAILYWBKFT PO ; Start 02/04/17 at 10:00; Stop at 10:09; Status DC Aspirin (Children'S Aspirin) 81 mg DAILYWBKFT PO Last administered on 08:40; Start 02/04/17 at 10:15 Aspirin (Children'S Aspirin) 81 mg 1X ONCE PO Last administered on 02/04/17 10:26; Start 02/04/17 at 10:30; Stop 02/04/17 at 10:31; Status DC Potassium Chloride 40 meq 40 meq 1X ONCE PO Last administered on 02/05/17 08: 59; Start 02/05/17 at 08:15; Stop 02/05/17 at 08:16; Status DC Magnesium Sulfate/ Dextrose (Magnesium Sulfate PREMIX 2GM) 50 ml @ 25 mls/hr 1X ONCE IV Last administered on 02/05/17 08:59; Start 02/05/17 at 09:00; Stop 02/05/17 at 09:36; Status DC Potassium Chloride (Klor-Con) 20 meq BID PO ; Start 02/05/17 at 21:00; Status Cancel Potassium Chloride 40 meq 40 meq 1X ONCE PO ; Start 02/05/17 at 09:30; Stop at 09:36; Status DC Magnesium Sulfate/ Dextrose (Magnesium Sulfate PREMIX 2GM) 50 ml @ 25 mls/hr 1X ONCE IV ; Start 02/05/17 at 09:30; Stop 02/05/17 at 11:29; Status DC Potassium Chloride (Klor-Con) 20 meq BIDWMEALS PO Last administered on 08:41; Start 02/05/17 at 10:30 Atenolol (Tenormin) 25 mg BID PO Last administered on 02/06/17 08:42; Start at 21:00 Active Scripts Active Reported Tylenol (Acetaminophen) 325 Mg Tablet 1-2 Tab PO PRN Q4HRS Coumadin (Warfarin Sodium) 2 Mg Tablet 2 Mg PO DAILY Atorvastatin Calcium 40 Mg Tablet 40 Mg PO DAILY Losartan Potassium 100 Mg Tablet 100 Mg PO DAILY Glipizide 5 Mg Tablet 5 Mg PO DAILY Atenolol 50 Mg Tablet 50 Mg PO BID Amlodipine Besylate 10 Mg Tablet 10 Mg PO DAILY Furosemide 40 Mg/4 Ml Solution 40 Mg INJ DAILY FIRST DOSE NOW Vitals/I & O Vital Sign - Last 24 Hours 02/05/17 02/05/17 02/05/17 02/05/17 11:00 15:00 19:00 20:00 Temp 96.4 96.8 95.7 96.4 96.8 95.7 Pulse 76 78 79 Resp 18 B/P 128/53 132/65 153/61 Pulse Ox 99 96 98 O2 Delivery Nasal Cannula Nasal Cannula Nasal Cannula Nasal Cannula O2 Flow Rate 2.0 2.0 2.0 4.0 02/05/17 02/05/17 02/06/17 02/06/17 20:35 23:00 03:00 07:00 Temp 95.7 95.7 97.7 95.7 95.7 97.7 Pulse 79 75 85 89 Resp 18 B/P 153/61 139/50 142/60 131/84 Pulse Ox 96 97 97 O2 Delivery Nasal Cannula Nasal Cannula Nasal Cannula O2 Flow Rate 2.0 2.0 2.0 02/06/17 02/06/17 02/06/17 08:41 08:42 08:59 Pulse 89 89 89 B/P 131/84 131/84 131/84 Intake and Output 02/05/17 02/05/17 02/06/17 15:00 23:00 07:00 Intake Total 500 ml 950 ml Output Total 800 ml Balance 500 ml 150 ml GEE FAIRBANKS MD Feb 06, 2017 10:40
--- NOTE | 2017-02-06 10:45 | PDOC ---
Provider Note Provider Note discharge summary dictated # [id number] GEE FAIRBANKS MD Feb 06, 2017 10:45
--- NOTE | 2017-02-06 10:46 | DISCH ---
DISCHARGE INSTRUCTIONS Condition on Discharge Condition on Discharge: Stable Activity After Discharge Activity Instructions for Disc: No restrictions Diet after Discharge Diet after Discharge: Cardiac, Diabetic No Calorie Level Contacting the after DC Call your doctor for: If your condition worsens Follow-Up Follow up with: dr. fairbanks next week Warfarin Follow-Up Warfarin Follow UP: next week with dr. fairbanks office visit GEE FAIRBANKS MD Feb 06, 2017 10:46
[2017-02-06] MEDS ORDERED: ATEN25TA PO (10:48)
[2017-02-06] MEDS ORDERED: FURO40TA4 PO (10:48)
[2017-02-06] MEDS ORDERED: POTA20TA4 PO (10:48)
[2017-02-06 11:03] VITALS: BP 146/71
--- NOTE | 2017-02-06 11:48 | PDOC ---
CARDIO Progress Notes Date and Time Date of Service 02/06/2017 Time of Evaluation 1130 Subjective Subjective: No Chest Pain, No shortness of breath, No Palpitations, No Dizziness Vitals Vitals Vital Signs Date Time Temp Pulse Resp B/P Pulse Ox O2 Delivery O2 Flow Rate FiO2 02/06/17 11:03 97.9 77 15 146/71 97 Nasal Cannula 2.0 97.9 Weight Weight [ ] Input and Output Intake and Output Intake and Output 02/06/17 07:00 Intake Total 1450 ml Output Total 800 ml Balance 650 ml Intake Oral 1450 ml Output Urine Total 800 ml # Voids 2 Laboratory Labs Laboratory Tests Test 02/05/17 16:14 02/05/17 20:26 02/06/17 04:10 02/06/17 07:51 Glucose (Fingerstick) 79mg/dL (70-99) 177mg/dL (70-99) 96mg/dL (70-99) Prothrombin Time 22.9SEC (11.7-14.0) Prothromb Time International Ratio 2.2 (0.8-1.1) Sodium Level 140mmol/L (136-145) Potassium Level 3.5mmol/L (3.5-5.1) Chloride Level 105mmol/L (98-107) Carbon Dioxide Level 28mmol/L (21-32) Anion Gap 7 (6-14) Blood Urea Nitrogen 17mg/dL (7-20) Creatinine 0.9mg/dL (0.6-1.0) Estimated GFR (Cockcroft-Gault) 59.9 Glucose Level 95mg/dL (70-99) Calcium Level 8.9mg/dL (8.5-10.1) Magnesium Level 1.8mg/dL (1.8-2.4) Physical Exam HEENT: Neck Supple W Full Motion Chest: Symmetric LUNGS: Other (diminished bases) Heart: S1S2, RRR (AFIB rate controlled) Abdomen: Soft N/T Extremities: No Calf Tenderness, Other (trace LE edema) Neurology: alert, oriented, follow commands Assessment Assessment 1. Acute CHF diastolic dysfunction: improved. TTE with normal wall motion and preserved EF. Suspect from #2. 2. Severe pulmonary HTN: nonsmoker. suspect associated PINO. Pulmonary following 3. Chronic AFIB: rate controlled. no further bradycardia after decrease atenolol 3. HTN: controlled 4. HLP: statin 5. Hypokalemia/Hypomagnesemia: resolved Recommendations 1. Continue with coumadin per PCP. 2 PO lasix therapy and K supplement 3. Will repeat TTE prior to next follow up and will consider for possible RHC 4. OK to DC per cardiac standpoint. Follow up in 3 weeks BRANDT DURAN APRN Feb 06, 2017 11:48
--- NOTE | 2017-02-06 14:00 | PDOC ---
PULMONARY PROGRESS NOTES Subjective PT FEELS BETTER Vitals Vital Signs Date Time Temp Pulse Resp B/P Pulse Ox O2 Delivery O2 Flow Rate FiO2 02/06/17 11:03 97.9 77 15 146/71 97 Nasal Cannula 2.0 97.9 General: Alert Lungs: Clear, Crackles Cardiovascular: S1, S2 Abdomen: Soft Neuro Exam: Alert Extremities: Other (EDEMA) Skin: Warm Labs Laboratory Tests Test 02/04/17 15:00 02/04/17 16:11 02/05/17 04:30 02/05/17 07:33 Troponin I Quantitative < 0.017ng/mL (0.000-0.055) Glucose (Fingerstick) 94mg/dL (70-99) 101mg/dL (70-99) White Blood Count 5.9x10^3/uL (4.0-11.0) Red Blood Count 3.47x10^6/uL (3.50-5.40) Hemoglobin 11.4g/dL (12.0-15.5) Hematocrit 33.4% (36.0-47.0) Mean Corpuscular Volume 96fL (79-100) Mean Corpuscular Hemoglobin 33pg (25-35) Mean Corpuscular Hemoglobin Concent 34g/dL (31-37) Red Cell Distribution Width 14.8% (11.5-14.5) Platelet Count 297x10^3/uL (140-400) Neutrophils (%) (Auto) 62% (31-73) Lymphocytes (%) (Auto) 23% (24-48) Monocytes (%) (Auto) 13% (0-9) Eosinophils (%) (Auto) 1% (0-3) Basophils (%) (Auto) 0% (0-3) Neutrophils # (Auto) 3.7x10^3uL (1.8-7.7) Lymphocytes # (Auto) 1.4x10^3/uL (1.0-4.8) Monocytes # (Auto) 0.7x10^3/uL (0.0-1.1) Eosinophils # (Auto) 0.1x10^3/uL (0.0-0.7) Basophils # (Auto) 0.0x10^3/uL (0.0-0.2) Prothrombin Time 27.0SEC (11.7-14.0) Prothromb Time International Ratio 2.7 (0.8-1.1) Sodium Level 141mmol/L (136-145) Potassium Level 3.3mmol/L (3.5-5.1) Chloride Level 106mmol/L (98-107) Carbon Dioxide Level 28mmol/L (21-32) Anion Gap 7 (6-14) Blood Urea Nitrogen 16mg/dL (7-20) Creatinine 0.9mg/dL (0.6-1.0) Estimated GFR (Cockcroft-Gault) 59.9 Glucose Level 93mg/dL (70-99) Calcium Level 8.5mg/dL (8.5-10.1) Magnesium Level 1.5mg/dL (1.8-2.4) Triglycerides Level 79mg/dL (0-150) Cholesterol Level 129mg/dL (0-200) LDL Cholesterol, Calculated 74mg/dL (0-100) VLDL Cholesterol, Calculated 16mg/dL (0-40) Non-HDL Cholesterol Calculated 90mg/dL (0-129) HDL Cholesterol 39mg/dL (40-60) Cholesterol/HDL Ratio 3.3 Thyroid Stimulating Hormone (TSH) 2.026uIU/mL (0.358-3.74) Test 02/05/17 11:15 02/05/17 16:14 02/05/17 20:26 02/06/17 04:10 Glucose (Fingerstick) 153mg/dL (70-99) 79mg/dL (70-99) 177mg/dL (70-99) Prothrombin Time 22.9SEC (11.7-14.0) Prothromb Time International Ratio 2.2 (0.8-1.1) Sodium Level 140mmol/L (136-145) Potassium Level 3.5mmol/L (3.5-5.1) Chloride Level 105mmol/L (98-107) Carbon Dioxide Level 28mmol/L (21-32) Anion Gap 7 (6-14) Blood Urea Nitrogen 17mg/dL (7-20) Creatinine 0.9mg/dL (0.6-1.0) Estimated GFR (Cockcroft-Gault) 59.9 Glucose Level 95mg/dL (70-99) Calcium Level 8.9mg/dL (8.5-10.1) Magnesium Level 1.8mg/dL (1.8-2.4) Test 02/06/17 07:51 Glucose (Fingerstick) 96mg/dL (70-99) Laboratory Tests Test 02/05/17 16:14 02/05/17 20:26 02/06/17 04:10 02/06/17 07:51 Glucose (Fingerstick) 79mg/dL (70-99) 177mg/dL (70-99) 96mg/dL (70-99) Prothrombin Time 22.9SEC (11.7-14.0) Prothromb Time International Ratio 2.2 (0.8-1.1) Sodium Level 140mmol/L (136-145) Potassium Level 3.5mmol/L (3.5-5.1) Chloride Level 105mmol/L (98-107) Carbon Dioxide Level 28mmol/L (21-32) Anion Gap 7 (6-14) Blood Urea Nitrogen 17mg/dL (7-20) Creatinine 0.9mg/dL (0.6-1.0) Estimated GFR (Cockcroft-Gault) 59.9 Glucose Level 95mg/dL (70-99) Calcium Level 8.9mg/dL (8.5-10.1) Magnesium Level 1.8mg/dL (1.8-2.4) Medications Active Scripts Medications Dose Route/Sig Days Date Category Dose Instructions Tylenol (Acetaminophen) 325 Mg Tablet 1-2 Tab PO PRN Q4HRS 02/03/17 Reported Coumadin (Warfarin Sodium) 2 Mg Tablet 2 Mg PO DAILY 02/03/17 Reported Atorvastatin Calcium 40 Mg Tablet 40 Mg PO DAILY 02/03/17 Reported Losartan Potassium 100 Mg Tablet 100 Mg PO DAILY 02/03/17 Reported Glipizide 5 Mg Tablet 5 Mg PO DAILY 02/03/17 Reported Atenolol 50 Mg Tablet 50 Mg PO BID 02/03/17 Reported Amlodipine Besylate 10 Mg Tablet 10 Mg PO DAILY 02/03/17 Reported Furosemide 40 Mg/4 Ml Solution 40 Mg INJ DAILY 02/03/17 Reported FIRST DOSE NOW Impression . IMPRESSION: 1. Acute respiratory failure secondary to acute heart failure mostly diastolic. Echocardiogram reveals normal systolic function. 2. Secondary pulmonary hypertension. 3. Suspect obstructive sleep apnea. 4. Persistent atrial fibrillation. 5. Hyperlipidemia. 6. Type 2 diabetes. 7. Abnormal x-ray compatible with congestive heart failure infusions. Plan . PT TO D/C TODAY OUT PT SLEEP STUDY DIURESE 6 MINUTE WALK NO NEED FOR 02 AT TIMES ECHO OVERESTIMATES THE PAP MAY NEED A RIGHT HEART CATH TO CONFIRM PAP GUERITA CHONG MD Feb 06, 2017 14:00
--- NOTE | 2017-02-06 18:21 | DS ---
DATE OF DISCHARGE: 02/06/2017 CONSULTANTS: Dr. Blum, Dr. Verde, and Dr. Lizarraga. FINAL DIAGNOSES: 1. Acute diastolic congestive heart failure. 2. Severe pulmonary hypertension. 3. Coronary artery disease manifested by coronary calcifications on a CAT scan of the chest. 4. Persistent atrial fibrillation treated with Coumadin. 5. Hypertension. 6. Hyperlipidemia. 7. Hypokalemia. 8. Hypomagnesemia. 9. Diabetes mellitus type 2 with microalbuminuria. 10. Bilateral pleural effusion secondary to acute diastolic congestive heart failure. HOSPITAL COURSE: The patient is an 81-year-old white female with a history of persistent atrial fibrillation treated with Coumadin, who has diabetes mellitus type 2 with microalbuminuria, history of hypertension, admitted to [facility] from my office on 02/03/2017 with a 1-week history of dyspnea on exertion and lower extremity edema. The patient was admitted to the hospital and had a chest x-ray consistent with congestive heart failure. CAT scan of the chest showed bilateral pleural effusions with passive atelectasis. An echocardiogram showed a preserved left ventricular ejection fraction with severe pulmonary hypertension. The patient was seen by Dr. Blum for Pulmonary and Dr. Lizarraga and Dr. Verde for Cardiology. The patient's INR was therapeutic, and her Coumadin was continued. She was treated with IV Lasix and eventually switched to oral Lasix, and her issue of shortness of breath resolved. She is on oxygen 1 liter per nasal cannula. She diuresed quite well. We will check an oxygen saturation on room air at rest and walking to see if we can discontinue the oxygen. She did have some hypokalemia and hypomagnesemia, which resolved with repletion. She was switched to oral Lasix on the day of dismissal. She will be dismissed to home on Coumadin 2 mg every day, amlodipine 10 mg every day, and atenolol 25 mg b.i.d. She will be dismissed on glipizide 5 mg every day, furosemide 40 mg every day, potassium chloride 20 mEq b.i.d., losartan 100 mg every day, and lovastatin 40 mg b.i.d. Her metformin was discontinued due to the congestive heart failure. Her blood sugars were under good control with glipizide 5 mg every day. Dismissed on Prilosec 20 mg every day p.r.n., tramadol 50 mg every 6 hours p.r.n., and she will follow up in the office next week and also get a prothrombin time and INR done in the office next week when she returns. She will be followed up with the label tacker in a few weeks and have a repeat echocardiogram. Her pulmonary artery pressures are still high. She might need a right heart cardiac catheterization. She will stick to a cardiac diabetic diet. GEE FAIRBANKS MD DR: Danilo JOB#: [id number] / [id number]
[2017-02-07] MEDS ORDERED: FUROSEMIDE 40 MG TABLET. PO SCH (09:00)
== END 2017-02-06 14:00 | disposition home or self-care (01) | DRG 291 ==
LOC: 5 NORTH 13:58
PROVIDERS: ADMIT Internal Medicine; ATTEND Internal Medicine
DX: I11.0 Hypertensive heart disease with heart failure (principal); J96.00 Acute respiratory failure, unspecified whether with hypoxia or hypercapnia; J98.11 Atelectasis; I48.1 Persistent atrial fibrillation; I50.31 Acute diastolic (congestive) heart failure; E11.9 Type 2 diabetes mellitus without complications; E78.5 Hyperlipidemia, unspecified; K57.90 Diverticulosis of intestine, part unspecified, without perforation or abscess without bleeding; M19.90 Unspecified osteoarthritis, unspecified site; E83.42 Hypomagnesemia; E87.6 Hypokalemia; H54.41 Blindness, right eye, normal vision left eye; I25.10 Atherosclerotic heart disease of native coronary artery without angina pectoris; I27.2 Other secondary pulmonary hypertension; I48.2 Chronic atrial fibrillation; K21.9 Gastro-esophageal reflux disease without esophagitis; Z79.01 Long term (current) use of anticoagulants; Z79.84 Long term (current) use of oral hypoglycemic drugs; Z79.899 Other long term (current) drug therapy; Z80.0 Family history of malignant neoplasm of digestive organs; Z80.3 Family history of malignant neoplasm of breast; Z82.3 Family history of stroke; Z82.49 Family history of ischemic heart disease and other diseases of the circulatory system; Z83.3 Family history of diabetes mellitus; Z88.8 Allergy status to other drugs, medicaments and biological substances; Z91.040 Latex allergy status
CPT/HCPCS: 36415; 71020; 71250; 80048; 80053; 80061; 82947; 83735; 83880; 84443; 84484; 85027; 85379; 85610; 93005; 93306; 93970; 94620; J1940; J7060

== ENCOUNTER → 2017-03-13 | Outpatient (CLI) | payer OTHER ==
[~2017-03-13] MED LIST: ACET325T9 PO; AMLO10TA2 PO; ATEN25TA PO; ATEN50TA PO; ATOR40TA59 PO; FURO-68 INJ; FURO40SO5 INJ; FURO40TA4 PO; GLIP5TAB10 PO; LOSA100T6 PO; POTA20TA4 PO; WARF2TAB PO
--- NOTE | 2017-03-13 14:59 | CARD ---
APPROVED REPORT EXAM: Two-dimensional and M-mode echocardiogram with Doppler and color Doppler. Other Information Quality : GoodHR: 81bpm Rhythm : Atrial Fibrillation INDICATION Congestive Heart Failure Pulmonary hypertension 2D DIMENSIONS RVDd3.3 (2.9-3.5cm)Left Atrium(2D)4.5 (1.6-4.0cm) IVSd1.0 (0.7-1.1cm)Aortic Root(2D)2.5 (2.0-3.7cm) LVDd5.1 (3.9-5.9cm)LVOT Diameter2.0 (1.8-2.4cm) PWd1.0 (0.7-1.1cm)LVDs3.4 (2.5-4.0cm) FS (%) 32.3 %SV73.7 ml LVEF(%)60.2 (>50%) Aortic Valve AoV Peak Aries.143.5cm/sAoV VTI33.5cm AO Peak GR.8.2mmHgLVOT Peak Aries.103.6cm/s AO Mean GR.5mmHgAVA (VMAX)2.33cm2 Mitral Valve MV E Peak Gr.12mmHgMV E Mean Gr.3mmHg Pulmonary Valve PV Peak Ceemjiid69.1cm/s Tricuspid Valve TR P. [id number]/sTR Peak Gr.45mmHg Pulmonary Vein S1 Tzsvzktu712.5cm/s LEFT VENTRICLE The left ventricle is normal size. There is normal left ventricular wall thickness. The left ventricu lar systolic function is normal and the ejection fraction is within normal range. The Ejection Fracti on is 55-60%. There is normal LV segmental wall motion. Tissue Doppler assessment suggests moderate l eft ventricular diastolic dysfunction. RIGHT VENTRICLE The right ventricle is normal size. There is normal right ventricular wall thickness. The right ventr icular systolic function is normal. ATRIA The left atrium is mildly dilated. The right atrium is mildly dilated. The interatrial septum is inta ct with no evidence for an atrial septal defect or patent foramen ovale as noted on 2-D or Doppler im aging. AORTIC VALVE The aortic valve is mildly sclerotic. The aortic valve is trileaflet. Doppler and Color Flow revealed no significant aortic regurgitation. There is no significant aortic valvular stenosis. MITRAL VALVE Mitral annular calcification is mild. The mitral valve leaflets are thickened. There is no evidence o f mitral valve prolapse. There is no mitral valve stenosis. Doppler and Color Flow revealed mild mitr al regurgitation. TRICUSPID VALVE Doppler and Color Flow revealed mild tricuspid regurgitation. The pulmonary artery systolic pressure is estimated at 48 mmHg. There is moderate pulmonary hypertension. PULMONIC VALVE Doppler and Color Flow revealed no pulmonic valvular regurgitation. There is no pulmonic valvular flor[place] nosis. GREAT VESSELS The aortic root is normal in size. The ascending aorta is normal in size. The pulmonary artery is nor mal. The IVC is normal in size and collapses >50% with inspiration. PERICARDIAL EFFUSION There is no pleural effusion. There is no evidence of significant pericardial effusion. Critical Notification Critical Value: No <Conclusion> The left ventricular systolic function is normal and the ejection fraction is within normal range. Th e Ejection Fraction is 55-60%. There is normal LV segmental wall motion. Tissue Doppler assessment suggests moderate left ventricular diastolic dysfunction. Doppler and Color Flow revealed mild tricuspid regurgitation. The pulmonary artery systolic pressure is estimated at 48 mmHg. There is moderate pulmonary hypertension.
== END | disposition home or self-care (01) ==
LOC: ECHO 09:40
PROVIDERS: ATTEND Internal Medicine Cardiovascular Disease
DX: I08.1 Rheumatic disorders of both mitral and tricuspid valves (principal); I27.0 Primary pulmonary hypertension; I50.9 Heart failure, unspecified
CPT/HCPCS: 93306

== ENCOUNTER 2017-11-21 06:18 | Inpatient (IN) | payer OTHER ==
[2017-11-21 07:05] LABS: ADD MAN DIFF? NO
[2017-11-21] MEDS: LABETALOL 20 MG/4 ML DISP.SYRIN. IVP ×2 (07:07→07:13)
[2017-11-21] MEDS: ASPIRIN CHEWABLE 81 MG TABLET. PO ×2 (07:10→07:12)
[2017-11-21 07:11] LABS: BASO % 1 % (0-3); EOS # 0.1 x10^3/uL (0.0-0.7); EOS % 1 % (0-3); HEMATOCRIT 38.3 % (36.0-47.0); HEMOGLOBIN 13.1 g/dL (12.0-15.5); LYMPH # 1.2 x10^3/uL (1.0-4.8); LYMPH % 21 % (24-48); MEAN CORPUSCULAR HEMOGLOBIN 33 pg (25-35); MEAN CORPUSCULAR HGB CONC 34 g/dL (31-37); MEAN CORPUSCULAR VOLUME 97 fL (79-100); MONO # 0.6 x10^3/uL (0.0-1.1); MONO % 10 % (0-9); NEUT # 3.7 x10^3uL (1.8-7.7); NEUT % 67 % (31-73); PLATELET COUNT 259 x10^3/uL (140-400); RED BLOOD COUNT 3.95 x10^6/uL (3.50-5.40); RED CELL DISTRIBUTION WIDTH 14.4 % (11.5-14.5); WHITE BLOOD COUNT 5.5 x10^3/uL (4.0-11.0)
[2017-11-21 07:25] LABS: ANION GAP 12 (6-14); BLOOD UREA NITROGEN 21 mg/dL (7-20); CALCIUM 9.9 mg/dL (8.5-10.1); CARBON DIOXIDE 26 mmol/L (21-32); CHLORIDE 101 mmol/L (98-107); CREATININE 0.9 mg/dL (0.6-1.0); GFR 59.8; GLUCOSE 210 mg/dL (70-99); POTASSIUM 3.6 mmol/L (3.5-5.1); SODIUM 139 mmol/L (136-145)
[2017-11-21 07:26] LABS: INR 2.4 (0.8-1.1); PARTIAL THROMBOPLASTIN TIME 37 SEC (24-38); PROTHROMBIN TIME PATIENT 24.7 SEC (11.7-14.0)
[2017-11-21 07:30] LABS: ALBUMIN 3.7 g/dL (3.4-5.0); ALK PHOS 107 U/L (46-116); ALT (SGPT) 7 U/L (14-59); AST (SGOT) 17 U/L (15-37); DIRECT BILIRUBIN 0.2 mg/dL (0.0-0.2); LIPASE 128 U/L (73-393); TOTAL BILIRUBIN 0.6 mg/dL (0.2-1.0); TOTAL PROTEIN 8.6 g/dL (6.4-8.2)
[2017-11-21 07:32] LABS: TROPONINI < 0.017 ng/mL (0.000-0.055)
[2017-11-21 07:36] LABS: NT-PRO BNP 201 pg/mL (0-449)
[2017-11-21] MEDS ORDERED: ONDANSETRON PF 4 MG/2 ML VIAL. IV (08:30)
[2017-11-21] MEDS ORDERED: MORPHINE SULFATE 2 MG/ML DISP.SYRIN. IV (08:30)
[2017-11-21] MEDS: IV NORMAL SALINE 1000ML BAG 1,000 ML IV (09:00)
[2017-11-21] MEDS ORDERED: NITROGLYCERIN SUBLINGUAL 0.4 MG BOTTLE OF 25. SL (09:15)
[2017-11-21] MEDS ORDERED: hydrALAZINE 20 MG/ML VIAL. IVP (12:15)
[2017-11-21] MEDS ORDERED: MAGNESIUM HYDROXIDE 2,400 MG/30 ML ORAL.SUSP. PO (12:15)
[2017-11-21] MEDS ORDERED: POTASSIUM CHLORIDE 20 MEQ TABLET.ER. PO (12:30)
[2017-11-21] MEDS: ACETAMINOPHEN 325 MG TABLET. PO (12:35)
[2017-11-21 12:42] LABS: TROPONINI < 0.017 ng/mL (0.000-0.055)
[2017-11-21] MEDS: LOSARTAN POTASSIUM 50 MG TABLET. PO (12:51)
[2017-11-21] MEDS: POTASSIUM CHLORIDE 20 MEQ TABLET.ER. PO (12:51)
[2017-11-21] MEDS: amLODIPine BESYLATE 10 MG TABLET PO (12:51)
[2017-11-21] MEDS: CARVEDILOL 6.25 MG TABLET. PO ×2 (12:52→17:48)
[2017-11-21] MEDS: glipiZIDE 5 MG TABLET PO (12:52)
[2017-11-21] MEDS: FUROSEMIDE 40 MG TABLET. PO (12:52)
[2017-11-21 13:34] LABS: POC GLUCOSE 166 mg/dL (70-99)
[2017-11-21 15:00] LABS: TROPONINI < 0.017 ng/mL (0.000-0.055)
[2017-11-21 16:28] LABS: POC GLUCOSE 155 mg/dL (70-99)
[2017-11-21] MEDS ORDERED: metFORMIN 500 MG TABLET PO (17:00)
[2017-11-21] MEDS: metFORMIN 500 MG TABLET PO (17:48)
[2017-11-21] MEDS: WARFARIN 2.5 MG TABLET. PO (17:48)
[2017-11-21] MEDS: ATORVASTATIN CALCIUM 40 MG TABLET. PO (20:41)
[2017-11-21 20:46] LABS: POC GLUCOSE 140 mg/dL (70-99)
[2017-11-21] MEDS ORDERED: ATORVASTATIN CALCIUM 20 MG TABLET PO (21:00)
[2017-11-21] MEDS ORDERED: LOVASTATIN 40 MG PO (21:00)
[2017-11-22 05:02] LABS: ADD MAN DIFF? NO
[2017-11-22 05:38] LABS: INR 2.2 (0.8-1.1); PROTHROMBIN TIME PATIENT 23.2 SEC (11.7-14.0)
[2017-11-22 05:40] LABS: BASO % 0 % (0-3); EOS % 1 % (0-3); HEMATOCRIT 35.7 % (36.0-47.0); HEMOGLOBIN 12.4 g/dL (12.0-15.5); LYMPH % 33 % (24-48); MEAN CORPUSCULAR HEMOGLOBIN 33 pg (25-35); MEAN CORPUSCULAR HGB CONC 35 g/dL (31-37); MEAN CORPUSCULAR VOLUME 96 fL (79-100); MONO # 0.8 x10^3/uL (0.0-1.1); MONO % 12 % (0-9); NEUT # 3.2 x10^3uL (1.8-7.7); NEUT % 53 % (31-73); PLATELET COUNT 236 x10^3/uL (140-400); RED BLOOD COUNT 3.73 x10^6/uL (3.50-5.40); WHITE BLOOD COUNT 6.1 x10^3/uL (4.0-11.0)
[2017-11-22 05:57] LABS: CHOLESTEROL 149 mg/dL (0-200); HDLC 51 mg/dL (40-60); LDLC 80 mg/dL (0-100); NON-HDL CHOLESTEROL 98 mg/dL (0-129); TRIGLYCERIDES 90 mg/dL (0-150); VLDLC 18 mg/dL (0-40)
[2017-11-22 06:00] LABS: CHOLESTEROL/HDL RATIO 2.9
[2017-11-22 06:01] LABS: ANION GAP 12 (6-14); BLOOD UREA NITROGEN 19 mg/dL (7-20); CALCIUM 9.4 mg/dL (8.5-10.1); CARBON DIOXIDE 24 mmol/L (21-32); CHLORIDE 104 mmol/L (98-107); CREATININE 0.8 mg/dL (0.6-1.0); GFR 68.5; GLUCOSE 109 mg/dL (70-99); POTASSIUM 3.7 mmol/L (3.5-5.1); SODIUM 140 mmol/L (136-145)
[2017-11-22 07:44] LABS: POC GLUCOSE 111 mg/dL (70-99)
[2017-11-22] MEDS ORDERED: WARFARIN 2.5 MG TABLET. PO (09:00)
[2017-11-22] MEDS ORDERED: ASPIRIN ENTERIC COATED 81 MG TABLET.DR. PO (09:00)
[2017-11-22] MEDS ORDERED: glipiZIDE 5 MG TABLET PO (09:00)
[2017-11-22] MEDS ORDERED: NON FORMULARY ITEM (Potassium Chloride 20 MEQ) PO (09:00)
[2017-11-22] MEDS ORDERED: amLODIPine BESYLATE 10 MG TABLET PO (09:00)
[2017-11-22] MEDS ORDERED: NON FORMULARY ITEM (Losartan Potassium 100 MG) PO (09:00)
[2017-11-22] MEDS ORDERED: FUROSEMIDE 40 MG TABLET. PO (09:00)
[2017-11-22] MEDS: REGADENOSON 0.4 MG/5 ML DISP.SYRIN. IV (10:42)
[2017-11-22 12:32] LABS: POC GLUCOSE 238 mg/dL (70-99)
[2017-11-22] MEDS: metFORMIN 500 MG TABLET PO (12:59)
[2017-11-22] MEDS: amLODIPine BESYLATE 10 MG TABLET PO (12:59)
[2017-11-22] MEDS: CARVEDILOL 6.25 MG TABLET. PO (12:59)
[2017-11-22] MEDS: ASPIRIN CHEWABLE 81 MG TABLET. PO (13:00)
[2017-11-22] MEDS ORDERED: METOPROLOL SUCC 24HR ER 25 MG TAB.ER.24H. PO (13:00)
[2017-11-22] MEDS: FUROSEMIDE 40 MG TABLET. PO (13:00)
[2017-11-22] MEDS: LOSARTAN POTASSIUM 50 MG TABLET. PO (13:00)
[2017-11-22] MEDS: POTASSIUM CHLORIDE 20 MEQ TABLET.ER. PO (13:00)
[2017-11-22] MEDS: glipiZIDE 5 MG TABLET PO (13:01)
[2017-11-22] MEDS ORDERED: WARFARIN 2 MG TABLET. PO (16:00)
== END 2017-11-22 16:48 | disposition home or self-care (01) | DRG 292 ==
LOC: ER 06:18 → 2 NORTH 08:28
DX: I11.0 Hypertensive heart disease with heart failure (principal); I48.1 Persistent atrial fibrillation; I27.20 Pulmonary hypertension, unspecified; I48.0 Paroxysmal atrial fibrillation; K22.4 Dyskinesia of esophagus; I50.32 Chronic diastolic (congestive) heart failure; E11.9 Type 2 diabetes mellitus without complications; F02.80 Dementia in other diseases classified elsewhere, unspecified severity, without behavioral disturbance, psychotic disturbance, mood disturbance, and anxiety; E78.5 Hyperlipidemia, unspecified; I16.0 Hypertensive urgency; G30.9 Alzheimer's disease, unspecified; I25.10 Atherosclerotic heart disease of native coronary artery without angina pectoris; I48.2 Chronic atrial fibrillation; Z79.01 Long term (current) use of anticoagulants; Z79.82 Long term (current) use of aspirin; Z79.84 Long term (current) use of oral hypoglycemic drugs; Z82.0 Family history of epilepsy and other diseases of the nervous system; Z87.891 Personal history of nicotine dependence; Z88.8 Allergy status to other drugs, medicaments and biological substances; Z91.040 Latex allergy status
CPT/HCPCS: 36415; 71045; 78452; 80048; 80061; 80076; 82962; 83690; 83880; 84484; 85025; 85610; 85730; 93005; 93017; 96374; 96375; 99285-25; A9500; J2785; J3490

== ENCOUNTER 2019-09-23 13:59 | Observation (INO) | payer OTHER ==
[~2019-09-23] VITALS: Ht 160 cm; Wt 72.6 kg
[~2019-09-23 13:59] MED LIST changes: +ACET500T68 PO; -AMLO10TA2 PO; +AMLO10TA8 PO; +ASPI-612 PO; +LOSA100T14 PO; -LOSA100T6 PO; +LOVA40TA2 PO; +METF500T16 PO; +WARF2.5T83 PO
[2019-09-23] MEDS ORDERED: ONDANSETRON PF 4 MG/2 ML VIAL. IV ONE (14:45)
[2019-09-23] MEDS ORDERED: fentaNYL PF VIAL 100 MCG/2 ML VIAL IVP ONE (14:45)
[2019-09-23 15:01] LABS: BASO % 1 % (0-3); EOS % 1 % (0-3); HEMATOCRIT 33.3 % (36.0-47.0); HEMOGLOBIN 11.3 g/dL (12.0-15.5); LYMPH # 0.8 x10^3/uL (1.0-4.8); LYMPH % 12 % (24-48); MEAN CORPUSCULAR HEMOGLOBIN 33 pg (25-35); MEAN CORPUSCULAR HGB CONC 34 g/dL (31-37); MEAN CORPUSCULAR VOLUME 96 fL (79-100); MONO # 0.6 x10^3/uL (0.0-1.1); MONO % 8 % (0-9); NEUT # 5.6 x10^3/uL (1.8-7.7); NEUT % 79 % (31-73); PLATELET COUNT 221 x10^3/uL (140-400); RED BLOOD COUNT 3.46 x10^6/uL (3.50-5.40); RED CELL DISTRIBUTION WIDTH 15.7 % (11.5-14.5); WHITE BLOOD COUNT 7.1 x10^3/uL (4.0-11.0)
[2019-09-23 15:10] LABS: GFR 52.7; POTASSIUM 3.6 mmol/L (3.5-5.1)
[2019-09-23 15:16] LABS: ALBUMIN 3.7 g/dL (3.4-5.0); ALBUMIN/GLOBULIN RATIO 0.9 (1.0-1.7); TOTAL BILIRUBIN 0.8 mg/dL (0.2-1.0)
--- NOTE | 2019-09-23 15:17 | PHYS DOC ---
Past Medical History Past Medical History: A-Fib, CHF, Hypertension Past Surgical History: No Surgical History Alcohol Use: None Drug Use: None Adult General Chief Complaint Chief Complaint: SHOULDER INJURY HPI HPI Patient is an 84-year-old female who presents with complaint of right shoulder pain and injury after falling forward off of her bed. Patient states that she been sitting a little bit too far forward on the bed fell over. She denies any other injuries. Patient rates her pain to be a 9 out of 10. She denies head injury or loss of consciousness. She states that pain is worsened if she tries to move her shoulder.[] Review of Systems Review of Systems Constitutional: Denies fever or chills [] Respiratory: Denies cough or shortness of breath [] Cardiovascular: No additional information not addressed in HPI [] GI: Denies abdominal pain, nausea, vomiting or diarrhea [] Musculoskeletal: Complains of right shoulder pain [] Integument: Denies rash or skin lesions [] Neurologic: Denies headache, focal weakness or sensory changes [] All other systems were reviewed and found to be within normal limits, except as documented in this note. Current Medications Current Medications Current Medications Medications (Trade) Dose Ordered Sig/[facility] Start Time Stop Time Status Last Admin Dose Admin Fentanyl Citrate (Fentanyl 2ml Vial) 50 mcg 1X ONCE 09/23/19 14:45 09/23/19 14:46 DC 09/23/19 15:02 50 MCG Ondansetron HCl (Zofran) 4 mg 1X ONCE 09/23/19 14:45 09/23/19 14:46 DC 09/23/19 15:02 4 MG Allergies Allergies Allergies Coded Allergies Type Severity Reaction Last Updated Verified latex Allergy Intermediate RASH 02/03/17 Yes felodipine Adverse Reaction Mild COUGH 02/03/17 Yes lisinopril Adverse Reaction Mild COUGH 02/03/17 Yes Physical Exam Physical Exam Constitutional: Well developed, well nourished, no acute distress, non-toxic appearance. [] HENT: Normocephalic, atraumatic, bilateral external ears normal, oropharynx moist, no oral exudates, nose normal. [] Eyes: PERRLA, EOMI, conjunctiva normal, no discharge. [] Neck: Normal range of motion, no tenderness, supple, no stridor. [] Cardiovascular: Regular rate and rhythm[] Lungs & Thorax: Bilateral breath sounds clear to auscultation [] Abdomen: Bowel sounds normal, soft, no tenderness. [] Skin: Warm, dry, no erythema, no rash. [] Extremities: No tenderness, no cyanosis, no clubbing, ROM intact. [] Neurologic: Alert and oriented X 3, no focal deficits noted. [] Current Patient Data Vital Signs Vital Signs Date Time Temp Pulse Resp B/P (MAP) Pulse Ox O2 Delivery O2 Flow Rate FiO2 09/23/19 15:02 12 95 Nasal Cannula 2.0 09/23/19 14:18 98.0 74 150/65 (93) 98.0 Lab Values Laboratory Tests Test 09/23/19 14:55 White Blood Count 7.1 x10^3/uL (4.0-11.0) Red Blood Count 3.46 x10^6/uL (3.50-5.40) L Hemoglobin 11.3 g/dL (12.0-15.5) L Hematocrit 33.3 % (36.0-47.0) L Mean Corpuscular Volume 96 fL (79-100) Mean Corpuscular Hemoglobin 33 pg (25-35) Mean Corpuscular Hemoglobin Concent 34 g/dL (31-37) Red Cell Distribution Width 15.7 % (11.5-14.5) H Platelet Count 221 x10^3/uL (140-400) Neutrophils (%) (Auto) 79 % (31-73) H Lymphocytes (%) (Auto) 12 % (24-48) L Monocytes (%) (Auto) 8 % (0-9) Eosinophils (%) (Auto) 1 % (0-3) Basophils (%) (Auto) 1 % (0-3) Neutrophils # (Auto) 5.6 x10^3/uL (1.8-7.7) Lymphocytes # (Auto) 0.8 x10^3/uL (1.0-4.8) L Monocytes # (Auto) 0.6 x10^3/uL (0.0-1.1) Eosinophils # (Auto) 0.0 x10^3/uL (0.0-0.7) Basophils # (Auto) 0.0 x10^3/uL (0.0-0.2) Prothrombin Time 25.0 SEC (11.7-14.0) H Prothrombin Time INR 2.3 (0.8-1.1) H Sodium Level 141 mmol/L (136-145) Potassium Level 3.6 mmol/L (3.5-5.1) Chloride Level 103 mmol/L (98-107) Carbon Dioxide Level 26 mmol/L (21-32) Anion Gap 12 (6-14) Blood Urea Nitrogen 19 mg/dL (7-20) Creatinine 1.0 mg/dL (0.6-1.0) Estimated GFR (Cockcroft-Gault) 52.7 BUN/Creatinine Ratio 19 (6-20) Glucose Level 175 mg/dL (70-99) H Calcium Level 9.0 mg/dL (8.5-10.1) Total Bilirubin 0.8 mg/dL (0.2-1.0) Aspartate Amino Transferase (AST) 18 U/L (15-37) Alanine Aminotransferase (ALT) 16 U/L (14-59) Alkaline Phosphatase 85 U/L (46-116) Total Protein 8.0 g/dL (6.4-8.2) Albumin 3.7 g/dL (3.4-5.0) Albumin/Globulin Ratio 0.9 (1.0-1.7) L Laboratory Tests 09/23/19 14:55 Laboratory Tests 09/23/19 14:55 EKG EKG [] Radiology/Procedures Radiology/Procedures [] Impressions: PROCEDURE: SHOULDER 2+V RIGHT Examination: SHOULDER 2+V RIGHT History: Pain Comparison/Correlation: None Findings: 2 images of the right shoulder were obtained. The acromioclavicular joint degenerative narrowing is mild. Transverse fracture deformity with displacement is noted involving the right humeral neck. Glenohumeral joint relationship is probably adequate although evaluation is limited due to positioning. Impression: Displaced transverse fracture through the right humeral neck. Electronically signed by: Alonso Peace MD (09/23/2019 3:23 PM) [facility] DICTATED and SIGNED BY: ALONSO PEACE MD DATE: 09/23/19 1523 Course & Med Decision Making Course & Med Decision Making Pertinent Labs and Imaging studies reviewed. (See chart for details) [] Dragon Disclaimer Dragon Disclaimer This electronic medical record was generated, in whole or in part, using a voice recognition dictation system. Departure Departure Impression: Primary Impression: Fx humeral neck Disposition: 09 ADMITTED INPATIENT Admitting Physician: MERARI (Dr. Davila) Condition: IMPROVED Referrals: GEE FAIRBANKS MD (PCP) Problem Qualifiers Primary Impression: Fx humeral neck Encounter type: initial encounter Fracture type: closed Laterality: right Qualified Codes: S42.211A - Unspecified displaced fracture of surgical neck of right humerus, initial encounter for closed fracture CHARLOTTE HARMAN Jr. DO Sep 23, 2019 15:17
--- NOTE | 2019-09-23 15:26 | RAD ---
Examination: SHOULDER 2+V RIGHT History: Pain Comparison/Correlation: None Findings: 2 images of the right shoulder were obtained. The acromioclavicular joint degenerative narrowing is mild. Transverse fracture deformity with displacement is noted involving the right humeral neck. Glenohumeral joint relationship is probably adequate although evaluation is limited due to positioning. Impression: Displaced transverse fracture through the right humeral neck. Electronically signed by: Alonso Rizvi MD (09/23/2019 3:23 PM) [facility]
[2019-09-23] MEDS ORDERED: ONDANSETRON PF 4 MG/2 ML VIAL. IV PRN (16:00)
[2019-09-23] MEDS: MORPHINE SULFATE 2 MG/ML VIAL. IV PRN ×2 (17:24→20:19)
[2019-09-23] MEDS ORDERED: CARV25TA2 PO (17:50)
[2019-09-23 19:15] VITALS: BP 136/58
[2019-09-23 23:06] VITALS: BP 148/59
[2019-09-24] MEDS: MORPHINE SULFATE 2 MG/ML VIAL. IV PRN ×2 (02:48→08:13)
[2019-09-24 03:09] VITALS: BP 175/84
[2019-09-24 07:00] VITALS: BP 171/66
[2019-09-24] MEDS ORDERED: POTASSIUM CHLORIDE 20 MEQ TABLET.ER. PO SCH (08:00)
[2019-09-24] MEDS ORDERED: metFORMIN 500 MG TABLET PO SCH (08:00)
[2019-09-24] MEDS ORDERED: CARVEDILOL 6.25 MG TABLET. PO SCH (08:00)
[2019-09-24] MEDS ORDERED: ASPIRIN ENTERIC COATED 81 MG TABLET.DR. PO SCH (08:00)
[2019-09-24] MEDS ORDERED: glipiZIDE 5 MG TABLET PO SCH (09:00)
[2019-09-24] MEDS ORDERED: FUROSEMIDE 40 MG TABLET. PO SCH (09:00)
[2019-09-24] MEDS ORDERED: amLODIPine BESYLATE 10 MG TABLET PO SCH (09:00)
[2019-09-24] MEDS ORDERED: LOSARTAN POTASSIUM 50 MG TABLET. PO SCH (09:00)
--- NOTE | 2019-09-24 10:25 | PDOC ---
Provider Note Provider Note history and physical dictated # [id number] GEE FAIRBANKS MD Sep 24, 2019 10:25
[2019-09-24] MEDS ORDERED: HYDROcodone/APAP 5/325MG 1 TAB TABLET PO PRN (10:30)
[2019-09-24] MEDS ORDERED: WARF2.5T83 PO (10:31)
[2019-09-24] MEDS ORDERED: HYDR-2761 PO (10:31)
--- NOTE | 2019-09-24 10:36 | SNU/HH DC ---
DISCHARGE WITH HOME HEALTH DISCHARGE INFORMATION: Discharge Date: Sep 24, 2019 Final Diagnosis: Problems Medical Problems: (1) Fx humeral neck Status: Acute Condition on Discharge: Stable CODE STATUS: Code Status: Full HOME HEALTH: Face to Face: I certify this patient is under my care and that I, or a nurse practitioner or physician's supply assistant working with me, had a face to face encounter that meets the physician face to face encounter requirements with this patient on [09/24/19]. RN For Eval/Treatment: Yes Physical Therapy For: Evalulation/Treatment Occupational Therapy For: Evaluation/Treatment Pt Meets Homebound Status: Unsteady balance w/ amb, POST DISCHARGE ORDERS: Activity Instructions for Disc: No restrictions Weight Bearing Status after Di: As tolerated DIET AFTER DISCHARGE: ADA CHECKS AFTER DISCHARGE: Checks after discharge: Check blood press - daily, Check blood sugar, ac/hs FOLLOW-UP: PCP to follow Home Health: dr. fairbanks Follow up with: dr. fairbanks in 1 week Follow Up With: dr. contreras next week TREATMENT/EQUIPMENT ORDERS: Adaptive Equipment Issued: None CERTIFICATION STATEMENT: Certification Statement: Certification Statement: Based on the above finding, I certify that this patient is confined to the home and needs intermittent nursing home care, physical therapy and/or speech therapy, or continues to need occupational therapy.~ This patient is under my care, and I have initiated the establishment of the plan of care.~ This patient will be followed by myself or a community physician who will periodically review the plan of care. Home Meds Active Scripts Hydrocodone Bit/Acetaminophen (HYDROCODONE-APAP 5-325 ) 1 Tab Tablet, 1 TAB PO PRN Q4HRS PRN for severe pain, #30 TAB Prov:GEE FAIRBANKS MD 09/24/19 Warfarin Sodium (COUMADIN) 2.5 Mg Tablet, 2 MG PO DAILY16 for atrial fibrillation, #30 TAB Prov:GEE FAIRBANKS MD 09/24/19 Furosemide (FUROSEMIDE) 40 Mg Tablet, 40 MG PO DAILY, #30 MG Prov:GEE FAIRBANKS MD 02/06/17 Reported Medications Carvedilol (CARVEDILOL) 25 Mg Tablet, 6.25 MG PO BIDWMEALS for CARDIAC, TAB 09/23/19 Aspirin (ASPIRIN EC) 81 Mg Tablet.dr, 81 MG PO, TAB.SR 11/21/17 Potassium Chloride (POTASSIUM CHLORIDE ) 20 Meq Tablet.er, 20 MEQ PO DAILY, TAB.SR 11/21/17 Lovastatin (LOVASTATIN) 40 Mg Tablet, 40 MG PO HS, TAB 11/21/17 Metformin Hcl (METFORMIN HCL) 500 Mg Tablet, 500 MG PO BIDWMEALS for ANTI- DIABETIC, TAB 0 Refills 11/21/17 Acetaminophen (TYLENOL) 325 Mg Tablet, 1-2 TAB PO PRN Q4HRS for PAIN, #30 TAB 02/03/17 Losartan Potassium (LOSARTAN POTASSIUM) 100 Mg Tablet, 50 MG PO DAILY for htn, TAB 02/03/17 Glipizide (GLIPIZIDE) 5 Mg Tablet, 5 MG PO DAILY, TAB 02/03/17 Amlodipine Besylate (AMLODIPINE BESYLATE) 10 Mg Tablet, 10 MG PO DAILY, TAB 02/03/17 Discontinued Reported Medications Warfarin Sodium (COUMADIN) 2.5 Mg Tablet, 2.5 MG PO DAILY, TAB 11/21/17 GEE FAIRBANKS MD Sep 24, 2019 10:36
--- NOTE | 2019-09-24 10:42 | PDOC ---
Provider Note Provider Note discharge summary dictated # [id number] GEE FAIRBANKS MD Sep 24, 2019 10:42
--- NOTE | 2019-09-24 10:45 | SNU/HH DC ---
DISCHARGE WITH HOME HEALTH DISCHARGE INFORMATION: Discharge Date: Sep 24, 2019 Final Diagnosis: Problems Medical Problems: (1) Fx humeral neck Status: Acute Condition on Discharge: Stable CODE STATUS: Code Status: Full HOME HEALTH: Face to Face: I certify this patient is under my care and that I, or a nurse practitioner or physician's daycare assistant working with me, had a face to face encounter that meets the physician face to face encounter requirements with this patient on [09/24/19]. RN For Eval/Treatment: Yes Physical Therapy For: Evalulation/Treatment Occupational Therapy For: Evaluation/Treatment Pt Meets Homebound Status: Extreme weakness w/ amb. POST DISCHARGE ORDERS: Activity Instructions for Disc: No restrictions Weight Bearing Status after Di: As tolerated DIET AFTER DISCHARGE: ADA CHECKS AFTER DISCHARGE: Checks after discharge: Check blood press - daily, Check blood sugar, ac/hs FOLLOW-UP: Follow up with: dr. fairbanks in 1 week Follow Up With: dr. contreras next week Warfarin Follow UP: weekly and fax results to dr. fairbanks. fax [phone] TREATMENT/EQUIPMENT ORDERS: Adaptive Equipment Issued: None CERTIFICATION STATEMENT: Certification Statement: Certification Statement: Based on the above finding, I certify that this patient is confined to the home and needs intermittent shelter care, physical therapy and/or speech therapy, or continues to need occupational therapy.~ This patient is under my care, and I have initiated the establishment of the plan of care.~ This patient will be followed by myself or a community physician who will periodically review the plan of care. Home Meds Active Scripts Hydrocodone Bit/Acetaminophen (HYDROCODONE-APAP 5-325 ) 1 Tab Tablet, 1 TAB PO PRN Q4HRS PRN for severe pain, #30 TAB Prov:GEE FAIRBANKS MD 09/24/19 Warfarin Sodium (COUMADIN) 2.5 Mg Tablet, 2 MG PO DAILY16 for atrial fibrillation, #30 TAB Prov:GEE FAIRBANKS MD 09/24/19 Furosemide (FUROSEMIDE) 40 Mg Tablet, 40 MG PO DAILY, #30 MG Prov:GEE FAIRBANKS MD 02/06/17 Reported Medications Carvedilol (CARVEDILOL) 25 Mg Tablet, 6.25 MG PO BIDWMEALS for CARDIAC, TAB 09/23/19 Aspirin (ASPIRIN EC) 81 Mg Tablet.dr, 81 MG PO, TAB.SR 11/21/17 Potassium Chloride (POTASSIUM CHLORIDE ) 20 Meq Tablet.er, 20 MEQ PO DAILY, TAB.SR 11/21/17 Lovastatin (LOVASTATIN) 40 Mg Tablet, 40 MG PO HS, TAB 11/21/17 Metformin Hcl (METFORMIN HCL) 500 Mg Tablet, 500 MG PO BIDWMEALS for ANTI- DIABETIC, TAB 0 Refills 11/21/17 Acetaminophen (TYLENOL) 325 Mg Tablet, 1-2 TAB PO PRN Q4HRS for PAIN, #30 TAB 02/03/17 Losartan Potassium (LOSARTAN POTASSIUM) 100 Mg Tablet, 50 MG PO DAILY for htn, TAB 02/03/17 Glipizide (GLIPIZIDE) 5 Mg Tablet, 5 MG PO DAILY, TAB 02/03/17 Amlodipine Besylate (AMLODIPINE BESYLATE) 10 Mg Tablet, 10 MG PO DAILY, TAB 02/03/17 Discontinued Reported Medications Warfarin Sodium (COUMADIN) 2.5 Mg Tablet, 2.5 MG PO DAILY, TAB 11/21/17 GEE FAIRBANKS MD Sep 24, 2019 10:45
[2019-09-24 11:00] VITALS: BP 133/45
--- NOTE | 2019-09-24 11:12 | PDOC2 ---
CONSULT Date of Consult Date of Consult DATE: 09/24/19 TIME: 11:11 Referring Physician Referring Physician: Abdulaziz Identification/Chief Complaint Chief Complaint right shoulder pain Source Source: Chart review, Patient History of Present Illness Reason for Visit: The patient is an 84-year-old right handed woman with history of diabetes mellitus type 2, hypertension, hyperlipidemia and persistent atrial fibrillation, on Coumadin, who was sitting at the side of her bed at home when she was ready to fold laundry and she fell on her right side and had developed pain in the right upper extremity. She denied any head trauma and/or loss of consciousness. She went to the [facility] Emergency Room where x-rays revealed a displaced transverse fracture through the right humerus neck. She was placed on a right upper extremity splint and admitted to the hospital for further evaluation and treatment. She is comfortable with her analgesics. She is alert and coherent. She does live with her daughter who helps her at home. She was admitted primarily for pain control. I spoke to the emergency room last night and believe this will be treated nonoperatively and spoke to the patient about that today. Dr. Cintron saw the patient today and is planning for discharge with home health. I agree with that plan. The patient agrees as well. Past Medical History Cardiovascular: AFIB, HTN, Hyperlipidemia Pulmonary: No pertinent hx CENTRAL NERVOUS SYSTEM: Other GI: Diverticulosis, GERD, Other Heme/Onc: No pertinent hx Hepatobiliary: No pertinent hx Psych: No pertinent hx Musculoskeletal: Osteoarthritis Infectious disease: No pertinent hx Renal/: Chronic renal insuff Endocrine: Diabetes Past Surgical History Past Surgical History: Cataract Removal, Other Family History Family History: Coronary Artery Disease, Diabetes, Stroke Social History ALCOHOL: none Drugs: None Lives: with Family Current Problem List Problem List Problems Medical Problems: (1) Fx humeral neck Status: Acute Current Medications Current Medications Current Medications Fentanyl Citrate (Fentanyl 2ml Vial) 50 mcg 1X ONCE IVP Last administered on 09/23/19at 15:02; Start 09/23/19 at 14:45; Stop 09/23/19 at 14:46; Status DC Ondansetron HCl (Zofran) 4 mg 1X ONCE IV Last administered on 09/23/19at 15:02; Start 09/23/19 at 14:45; Stop 09/23/19 at 14:46; Status DC Ondansetron HCl (Zofran) 4 mg PRN Q8HRS PRN IV NAUSEA/VOMITING; Start 09/23/19 at 16:00; Stop 09/24/19 at 15:59 Morphine Sulfate (Morphine Sulfate) 2 mg PRN Q2HR PRN IV PAIN Last administered on 09/24/19 08:13; Start 09/23/19 at 16:00; Stop 09/24/19 at 15:59 Amlodipine Besylate (Norvasc) 10 mg DAILY PO Last administered on 09/24/19at 08:11; Start 09/24/19 at 09:00 Aspirin (Ecotrin) 81 mg DAILYWBKFT PO Last administered on 09/24/19 08:10; Start 09/24/19 at 08:00 Furosemide (Lasix) 40 mg DAILY PO Last administered on 09/24/19 08:10; Start 09/24/19 at 09:00 Glipizide (Glucotrol) 5 mg DAILY PO Last administered on 09/24/19at 08:10; Start 09/24/19 at 09:00 Metformin HCl (Glucophage) 500 mg BIDWMEALS PO Last administered on 09/24/19 08:11; Start 09/24/19 at 08:00 Potassium Chloride (Klor-Con) 20 meq DAILYWBKFT PO Last administered on 09/24/19at 08:10; Start 09/24/19 at 08:00 Warfarin Sodium (Coumadin) 2 mg DAILY16 PO ; Start 09/24/19 at 16:00 Carvedilol (Coreg) 6.25 mg BIDWMEALS PO Last administered on 09/24/19at 08:11; Start 09/24/19 at 08:00 Losartan Potassium (Cozaar) 50 mg DAILY PO Last administered on 09/24/19at 08:10; Start 09/24/19 at 09:00 Atorvastatin Calcium (Lipitor) 10 mg HS PO ; Start 09/24/19 at 21:00 Warfarin Sodium (Coumadin Per Physician) 1 each PRN DAILY PRN MC SEE COMMENTS; Start 09/24/19 at 16:00 Acetaminophen/ Hydrocodone Bitart (Lortab 5/325) 1 tab PRN Q4HRS PRN PO MODERATE PAIN; Start 09/24/19 at 10:30 Active Scripts Active Hydrocodone-Apap 5-325 (Hydrocodone Bit/Acetaminophen) 1 Tab Tablet 1 Tab PO PRN Q4HRS PRN Coumadin (Warfarin Sodium) 2.5 Mg Tablet 2 Mg PO DAILY16 Furosemide 40 Mg Tablet 40 Mg PO DAILY Reported Carvedilol 25 Mg Tablet 6.25 Mg PO BIDWMEALS Aspirin Ec (Aspirin) 81 Mg Tablet.dr 81 Mg PO Potassium Chloride (Potassium Chloride) 20 Meq Tablet.er 20 Meq PO DAILY Lovastatin 40 Mg Tablet 40 Mg PO HS Metformin Hcl 500 Mg Tablet 500 Mg PO BIDWMEALS Tylenol (Acetaminophen) 325 Mg Tablet 1-2 Tab PO PRN Q4HRS Losartan Potassium 100 Mg Tablet 50 Mg PO DAILY Glipizide 5 Mg Tablet 5 Mg PO DAILY Amlodipine Besylate 10 Mg Tablet 10 Mg PO DAILY Allergies Allergies: Coded Allergies: latex (Verified Allergy, Intermediate, RASH, 02/03/17) felodipine (Verified Adverse Reaction, Mild, COUGH, 02/03/17) lisinopril (Verified Adverse Reaction, Mild, COUGH, 02/03/17) Physical Exam General: Alert, Cooperative Lungs: Normal air movement Heart: Regular rate Abdomen: Soft Extremities: Other (the right shoulder shows grossly normal alignment. There is tenderness at the proximal humerus. There is no ecchymosis at this time. She is in a sling and appears comfortable. Light touch sensation is intact distally and she demonstrated motor function of the radial ulnar and median nerves distally.) Skin: No significant lesion Neuro: Normal speech, Sensation intact Vitals VITALS Vital Signs Date Time Temp Pulse Resp B/P (MAP) Pulse Ox O2 Delivery O2 Flow Rate FiO2 09/24/19 09:16 93 Nasal Cannula 2.0 09/24/19 08:11 77 171/66 09/24/19 07:00 97.8 20 97.8 Labs Labs Laboratory Tests Test 09/23/19 14:55 09/23/19 17:19 09/23/19 20:51 White Blood Count 7.1 x10^3/uL (4.0-11.0) Red Blood Count 3.46 x10^6/uL (3.50-5.40) Hemoglobin 11.3 g/dL (12.0-15.5) Hematocrit 33.3 % (36.0-47.0) Mean Corpuscular Volume 96 fL (79-100) Mean Corpuscular Hemoglobin 33 pg (25-35) Mean Corpuscular Hemoglobin Concent 34 g/dL (31-37) Red Cell Distribution Width 15.7 % (11.5-14.5) Platelet Count 221 x10^3/uL (140-400) Neutrophils (%) (Auto) 79 % (31-73) Lymphocytes (%) (Auto) 12 % (24-48) Monocytes (%) (Auto) 8 % (0-9) Eosinophils (%) (Auto) 1 % (0-3) Basophils (%) (Auto) 1 % (0-3) Neutrophils # (Auto) 5.6 x10^3/uL (1.8-7.7) Lymphocytes # (Auto) 0.8 x10^3/uL (1.0-4.8) Monocytes # (Auto) 0.6 x10^3/uL (0.0-1.1) Eosinophils # (Auto) 0.0 x10^3/uL (0.0-0.7) Basophils # (Auto) 0.0 x10^3/uL (0.0-0.2) Prothrombin Time 25.0 SEC (11.7-14.0) Prothromb Time International Ratio 2.3 (0.8-1.1) Sodium Level 141 mmol/L (136-145) Potassium Level 3.6 mmol/L (3.5-5.1) Chloride Level 103 mmol/L (98-107) Carbon Dioxide Level 26 mmol/L (21-32) Anion Gap 12 (6-14) Blood Urea Nitrogen 19 mg/dL (7-20) Creatinine 1.0 mg/dL (0.6-1.0) Estimated GFR (Cockcroft-Gault) 52.7 BUN/Creatinine Ratio 19 (6-20) Glucose Level 175 mg/dL (70-99) Calcium Level 9.0 mg/dL (8.5-10.1) Total Bilirubin 0.8 mg/dL (0.2-1.0) Aspartate Amino Transf (AST/SGOT) 18 U/L (15-37) Alanine Aminotransferase (ALT/SGPT) 16 U/L (14-59) Alkaline Phosphatase 85 U/L (46-116) Total Protein 8.0 g/dL (6.4-8.2) Albumin 3.7 g/dL (3.4-5.0) Albumin/Globulin Ratio 0.9 (1.0-1.7) Glucose (Fingerstick) 179 mg/dL (70-99) 198 mg/dL (70-99) Laboratory Tests Test 09/23/19 14:55 09/23/19 17:19 09/23/19 20:51 White Blood Count 7.1 x10^3/uL (4.0-11.0) Red Blood Count 3.46 x10^6/uL (3.50-5.40) Hemoglobin 11.3 g/dL (12.0-15.5) Hematocrit 33.3 % (36.0-47.0) Mean Corpuscular Volume 96 fL (79-100) Mean Corpuscular Hemoglobin 33 pg (25-35) Mean Corpuscular Hemoglobin Concent 34 g/dL (31-37) Red Cell Distribution Width 15.7 % (11.5-14.5) Platelet Count 221 x10^3/uL (140-400) Neutrophils (%) (Auto) 79 % (31-73) Lymphocytes (%) (Auto) 12 % (24-48) Monocytes (%) (Auto) 8 % (0-9) Eosinophils (%) (Auto) 1 % (0-3) Basophils (%) (Auto) 1 % (0-3) Neutrophils # (Auto) 5.6 x10^3/uL (1.8-7.7) Lymphocytes # (Auto) 0.8 x10^3/uL (1.0-4.8) Monocytes # (Auto) 0.6 x10^3/uL (0.0-1.1) Eosinophils # (Auto) 0.0 x10^3/uL (0.0-0.7) Basophils # (Auto) 0.0 x10^3/uL (0.0-0.2) Prothrombin Time 25.0 SEC (11.7-14.0) Prothromb Time International Ratio 2.3 (0.8-1.1) Sodium Level 141 mmol/L (136-145) Potassium Level 3.6 mmol/L (3.5-5.1) Chloride Level 103 mmol/L (98-107) Carbon Dioxide Level 26 mmol/L (21-32) Anion Gap 12 (6-14) Blood Urea Nitrogen 19 mg/dL (7-20) Creatinine 1.0 mg/dL (0.6-1.0) Estimated GFR (Cockcroft-Gault) 52.7 BUN/Creatinine Ratio 19 (6-20) Glucose Level 175 mg/dL (70-99) Calcium Level 9.0 mg/dL (8.5-10.1) Total Bilirubin 0.8 mg/dL (0.2-1.0) Aspartate Amino Transf (AST/SGOT) 18 U/L (15-37) Alanine Aminotransferase (ALT/SGPT) 16 U/L (14-59) Alkaline Phosphatase 85 U/L (46-116) Total Protein 8.0 g/dL (6.4-8.2) Albumin 3.7 g/dL (3.4-5.0) Albumin/Globulin Ratio 0.9 (1.0-1.7) Glucose (Fingerstick) 179 mg/dL (70-99) 198 mg/dL (70-99) Images Images Report reviewed and images independently reviewed. Transverse comminuted proximal humerus fracture and osteopenia. I believe the outlet view shows no dislocation. [facility] [address] [place] [address] IMAGING REPORT Signed PATIENT: BRIANNA BAINS ACCOUNT: [id number] : 1935 LOCATION: ER AGE: 84 SEX: F EXAM STATUS: REG ER ORD. PHYSICIAN: CHARLOTTE HARMAN Jr. DO REASON: fall; suspect humeral neck fracture PROCEDURE: SHOULDER 2+V RIGHT Examination: SHOULDER 2+V RIGHT History: Pain Comparison/Correlation: None Findings: 2 images of the right shoulder were obtained. The acromioclavicular joint degenerative narrowing is mild. Transverse fracture deformity with displacement is noted involving the right humeral neck. Glenohumeral joint relationship is probably adequate although evaluation is limited due to positioning. Impression: Displaced transverse fracture through the right humeral neck. Electronically signed by: Alonso Peace MD (09/23/2019 3:23 PM) [facility] DICTATED and SIGNED BY: ALONSO PEACE MD DATE: 09/23/19 1523 Assessment/Plan Assessment/Plan I recommend nonoperative treatment. These usually heal quite well without surgery, although her later motion might be limited. Surgery unfortunately does not seem to improve that range of motion, as it is often limited after attempted surgical fixation. Fixation for this fracture would be quite difficult because of the poor bone quality and the comminution. The latest recommendations and the literature would be nonoperative treatment and consideration of future surgery if satisfactory outcome is not achieved after healing. I think she can go home on oral medicines and we'll see her in the office in about 2 weeks for follow-up x-rays and further instructions about range of motion and possible therapy. She might do pendulum exercises now, as allowed by pain. I also will check a vitamin D level to see if it's adequate for bone healing. TOMER NINO MD Sep 24, 2019 11:12
--- NOTE | 2019-09-24 11:25 | HP ---
ADMIT DATE: 09/23/2019 LOCATION: She is in room 432. HISTORY OF PRESENT ILLNESS: The patient is an 84-year-old white female with history of diabetes mellitus type 2, hypertension, hyperlipidemia and persistent atrial fibrillation, on Coumadin, who was sitting at the side of her bed at home when she was ready to fold laundry and she fell on her right side and had developed pain in the right upper extremity. She denied any head trauma and/or loss of consciousness. She went to the [facility] Emergency Room where x-rays revealed a displaced transverse fracture through the right humerus neck. She was placed on a right upper extremity splint and admitted to the hospital for further evaluation and treatment. She is comfortable with her analgesics. She is alert and coherent. She does live with her daughter who helps her at home. She is right handed. ALLERGIES AND INTOLERANCES: INCLUDE FELODIPINE, LATEX, AND LISINOPRIL. LISINOPRIL CAUSED A COUGH. MEDICATIONS: Prior to admission include amlodipine 10 mg every day, aspirin 81 mg every day, carvedilol 6.25 mg b.i.d., furosemide 40 mg every day, glipizide 5 mg every day, losartan 50 mg every day, lovastatin 40 mg every day, Coumadin 2 mg every day, potassium chloride 20 mEq every day, metformin 500 mg 2 tablets at breakfast and 1 tablet with dinner. PAST MEDICAL HISTORY: Significant for diabetes mellitus type 2, hypertension, hyperlipidemia, persistent atrial fibrillation on Coumadin, esophageal dilatation in the past, colon polypectomy, cardiac catheterization in the year 1999 with normal coronary arteries, bilateral cataract extraction, vitrectomy in the right eye, severe pulmonary hypertension noted on echocardiogram and acute diastolic congestive heart failure in 2017. SOCIAL HISTORY: She does not drink alcohol nor she smokes cigarettes. She lives with her daughter. FAMILY HISTORY: Noncontributory. REVIEW OF SYSTEMS: GENERAL: No fever, chills or sweats. CARDIOVASCULAR: No chest pain. PULMONARY: No cough or shortness of breath. GASTROINTESTINAL: No constipation. ENDOCRINE: She has diabetes mellitus. SKIN: No rashes. The rest of systems reviewed are negative except as stated in history of present illness. PHYSICAL EXAMINATION: VITAL SIGNS: Temperature is 97.8 degrees, apical pulse is irregular at 77, respiratory rate is 20, and blood pressure is 171/66. Oxygen saturation 93% and that was on 2 liters per nasal cannula. HEENT: Eyes: Gaze is conjugate. Extraocular muscles are intact. Mouth: Tongue is midline. NECK: There is no cervical lymphadenopathy or thyroid enlargement. HEART: Reveals an S1, S2. There is no S3 or murmur. LUNGS: Clear. ABDOMEN: Soft with no hepatosplenomegaly, masses or tenderness. EXTREMITIES: Lower extremities without edema. Dorsalis pedis pulses 2+ bilaterally. Examination of right upper extremity, she has got a mobilizer to the right upper extremity. NEUROLOGIC: No facial weakness. She is able to wiggle fingers of the right hand. 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 Able to dorsi and plantarflex both feet. She is coherent. SKIN: No rashes. LABORATORY DATA: White count 7.1, hemoglobin 11.3, platelet count is 221,000, 79 polys and 12 lymphocytes. INR was 2.3. Sodium 141, potassium 3.6, chloride 103, total CO2 of 26, BUN 19, creatinine 1.0, blood sugar was 198 last night by fingerstick. Liver function tests were normal. Albumin 3.7 and she had the x-ray of the right shoulder, which showed a displaced transverse fracture through the right humerus neck. ASSESSMENT: 1. Right humerus fracture due to a mechanical fall. 2. Persistent atrial fibrillation, on Coumadin. 3. Diabetes mellitus type 2. 4. Hypertension. 5. Hyperlipidemia. PLAN: At this time is to consult Dr. Pinedo for orthopedic consult. We will order physical and occupational therapy. Continue with current her medications. Order some hydrocodone for pain control and obtain an EKG and a chest x-ray. Because she did not have any head trauma, we will hold off on a CAT scan of the head. Denies any headache. She will be dismissed to home, possibly later today if it is okay with the orthopedist and physical and occupational therapists. She does have a daughter to help her at home. She will follow up with the orthopedist also. GEE FAIRBANKS MD DR: BRUCE/citlaly JOB#: [id number] / [id number]
--- NOTE | 2019-09-24 12:08 | NUR ---
When FRONT OFFICE DEVELOPER checked vital signs patients SpO2 was 86% on room air, leader writer re-checked patient and her SpO2 was 95% on room air, will continue to monitor patient.
--- NOTE | 2019-09-24 12:40 | RAD ---
AP chest. HISTORY: Fall, right shoulder fracture AP view was taken of the chest. Again noted is the fracture of the proximal right humerus. Heart is enlarged. Lungs are free of infiltrates. There is no effusion. IMPRESSION: 1. Right humerus fracture. 2. No acute infiltrates. Electronically signed by: Pool Espinoza MD (09/24/2019 12:38 PM) [facility]
--- NOTE | 2019-09-24 12:54 | EKG ---
[facility] [address] [place] [address] Test Date: 2019-09-24 Test Time: 12:50:07 Pat Name: BRIANNA BAINS Department: Room: 432 1 Gender: F Manager Roofing: ZIYAD : 1935 Requested By: GEE FAIRBANKS Order Number: [id number] Reading MD: Measurements Intervals [place] Rate: 78 P: SC: QRS: 30 QRSD: 88 T: 90 QT: 402 QTc: 462 Interpretive Statements IRREGULAR RHYTHM, NO P-WAVE FOUND LOW LIMB LEAD VOLTAGE NO SPECIFIC ECG ABNORMALITIES RI6.01 Compared to ECG 11/21/2017 06:27:53 Sinus rhythm no longer present First degree AV block no longer present
--- NOTE | 2019-09-24 13:19 | DS ---
DATE OF DISCHARGE: 09/24/2019 CONSULTANTS: Dr. Pinedo and Dr. Brizuela. FINAL DIAGNOSES: 1. Displaced transverse fracture through the right humerus neck secondary to a mechanical fall. 2. Persistent atrial fibrillation, on Coumadin. 3. Diabetes mellitus type 2. 4. Hypertension. 5. Hyperlipidemia. HOSPITAL COURSE: The patient is an 84-year-old white female with a history of persistent atrial fibrillation, on Coumadin; diabetes mellitus type 2; hypertension; hyperlipidemia,, sitting at the side of the bed, getting ready to fold laundry when she fell forward on her right side on the floor and ____ pain in the right upper extremity, sought help at the [facility] Emergency Room on 09/23/2019 where x-rays showed a displaced transverse fracture of the right humerus neck. Right shoulder was immobilized. The Emergency Room doctor spoke with the orthopedist and the Emergency Room felt that she did not require any surgery or surgical intervention at this time and the patient was admitted to the hospital for further observation. She was seen in consultation by Dr. Brizuela for physical rehabilitation consultation and felt that she can go home with home health and physical therapy and she is seen by the physical therapist right now and she is ambulating with a cane. She is right handed and her daughter lives with her and can assist with her at home. The patient denied any head trauma and does not have any headache or any other pain anywhere else. She does have osteoarthritis in her knees but we decided not to give her an injection as she has diabetes mellitus and her blood sugars are running a little bit high in the upper 100s. Her blood pressure is elevated too and she was given some analgesics and will be dismissed on hydrocodone p.r.n. She is able to ambulate with a cane and I just saw her moments ago with a physical therapist. Review of her test results; sodium 141, potassium 3.6, chloride 103, total CO2 is 26, BUN 19, creatinine 1.0. Fingerstick blood sugar was 198 last night. Liver function tests are normal. Albumin was 3.7. INR was 2.3. White count 7.1, hemoglobin 11.3, platelet count 221,000. EKG and chest x-ray, I just ordered them and they have not been done yet. She received physical therapy. She will receive occupational therapy and was seen by Dr. Brizuela who feels that she can be dismissed today to home with home health. We will dismiss her later today if it is okay with the orthopedist. Dr. Pinedo was consulted. We are going to contact him to see if he can see the patient today and did discuss the case with him to see if she can go home with home health and home physical and occupational therapy with a registered nurse. She was told to make an appointment to see Dr. Cintron in 1 week and follow up with Dr. Pinedo. I will have an order here for a toilet riser and a cane. She will be dismissed on [place] one every 4 hours p.r.n. severe pain, 30 tablets and no refill and also continue with her other current medications at home including amlodipine 10 mg every day, aspirin 81 mg every day, carvedilol 6.25 mg b.i.d., furosemide 40 mg every day, glipizide 5 mg every day, losartan 100 mg every day, lovastatin 40 mg every day, Coumadin 2 mg every day, potassium chloride 20 mEq every day, metformin 500 mg 2 tablets in the morning and 1 tablet in the p.m. GEE CINTRON MD DR: BRUCE/citlaly JOB#: [id number] / [id number]
--- NOTE | 2019-09-24 14:20 | NUR ---
Discharge Note: BRIANNA BAINS [address] Discharge instructions and discharge home medications reviewed with Patient and daughter Shara and a copy given. All questions have been answered and understanding verbalized. The following instructions and handouts were given: information about shoulder fracture, medications, follow up appointments, home health information. Also instructed patient and daughter that lab stated that vitamin D levels were not processed on the weekend so to call back on Thursday or Thursday for results. Discontinued lines and drains: IV line in left AC removed, catheter tip intact. Patient discharged to home with home health with daughter, wheelchair used for mobility to discharge vehicle.
[2019-09-24] MEDS ORDERED: WARFARIN 2.5 MG TABLET. PO SCH (16:00)
[2019-09-24] MEDS ORDERED: ATORVASTATIN CALCIUM 10 MG TABLET. PO SCH (21:00)
--- NOTE | 2019-09-24 21:19 | CONS ---
DATE OF CONSULTATION: 09/24/2019 LOCATION: She is in room 432. ATTENDING PHYSICIAN: Dr. Cintron. REASON FOR CONSULTATION: The patient was seen at the request of Dr. Cintron for rehab evaluation. HISTORY OF PRESENT ILLNESS: This is an 84-year-old right-handed female admitted on 09/23/2019 after she slid from edge of the bed and injured her right shoulder. The patient was found with displaced transverse fracture through the right humeral neck and she was seen by Orthopedics and no plans for surgical treatment. The patient received an arm sling. The patient admits some pain in her shoulder and also some pain in her right knee, mainly while up walking. She lives with her daughter who does not work and no steps for her to manage. She usually walks without any assistive devices, but had a roller walker at home. ALLERGIES: THE PATIENT IS KNOWN ALLERGIC TO FELODIPINE, LATEX, LISINOPRIL. PAST MEDICAL HISTORY: Includes atrial fibrillation, congestive heart failure, hypertension. She is on anticoagulation. The patient was noted with INR of 2.5, PT of 25. PHYSICAL EXAMINATION: The patient on physical examination today revealed an elderly female. She is alert, oriented to time, place, person and circumstance and follows commands appropriately. She is alert. She had arm sling in place to her right upper extremity somewhat higher up and I have adjusted it to proper position. She had some pain on range of motion of right shoulder with diffuse tenderness to palpation of right shoulder. She had crepitus on range of motion of both knee joints without any significant discomfort, but mild knee joint effusion. She had 4+/5 grade muscle strength overall and deep tendon reflexes are decreased at both knees and absent at both ankles. She had equal perception of touch and pinprick sensation bilaterally. She requires some help with bed mobility, but she is independent with transfers and up walking. She walks with somewhat wide-based gait slowly. ASSESSMENT: Elderly female with recent fall and fracture of right humeral neck with displacement, plans for nonsurgical treatment. Also presented with degenerative joint disease of both knees, clinical evidence of peripheral neuropathy. RECOMMENDATIONS: As she is doing alright and she lives with her daughter who is there all the time at home, agree with the plans for home with home health followup. I have asked physical therapist to train her using a cane while up walking to help with her balance. Dr. Cintron, I appreciate asking me to participate in the care of this interesting patient. I will be glad to follow her with you as needed for her rehabilitation. ABRAHAM BOX MD DR: JULEE/citlaly JOB#: [id number] / [id number]
== END 2019-09-24 14:20 | disposition home health service (06) ==
LOC: ER 13:59 → INTOOBSV 15:57 → 4 NORTH 15:57
PROVIDERS: ADMIT Internal Medicine; ATTEND Internal Medicine
DX: S42.301A Unspecified fracture of shaft of humerus, right arm, initial encounter for closed fracture (principal); E78.5 Hyperlipidemia, unspecified; I48.19 Other persistent atrial fibrillation; I27.20 Pulmonary hypertension, unspecified; I50.31 Acute diastolic (congestive) heart failure; E11.22 Type 2 diabetes mellitus with diabetic chronic kidney disease; M17.0 Bilateral primary osteoarthritis of knee; N18.9 Chronic kidney disease, unspecified; Z82.3 Family history of stroke; Z82.49 Family history of ischemic heart disease and other diseases of the circulatory system; Z83.3 Family history of diabetes mellitus; Z91.040 Latex allergy status; Z98.41 Cataract extraction status, right eye; W06.XXXA Fall from bed, initial encounter; Z98.42 Cataract extraction status, left eye; Y93.89 Activity, other specified; E11.42 Type 2 diabetes mellitus with diabetic polyneuropathy; Y92.89 Other specified places as the place of occurrence of the external cause; Y99.8 Other external cause status; Z79.01 Long term (current) use of anticoagulants; I13.0 Hypertensive heart and chronic kidney disease with heart failure and stage 1 through stage 4 chronic kidney disease, or unspecified chronic kidney disease
CPT/HCPCS: 36415; 71045; 73030; 80053; 82306; 82962; 85025; 85610; 93005; 96374; 96375; 96376; 97162; 97166; 99284; G0378; J2270; J2405; J3010; G0379; 99285-25

== ENCOUNTER → 2020-09-14 | Outpatient (CLI) | payer MEDICARE ==
[~2020-09-14] MED LIST changes: +AMLO-187 PO; -AMLO10TA8 PO; -ASPI-612 PO; +ASPI-886 PO; +CARV25TA2 PO; +HYDR-2761 PO; +WARF2.5T2 PO; -WARF2.5T83 PO
--- NOTE | 2020-09-14 16:45 | CARD ---
MR#: [id number] Date of Study: 09/14/2020 Ordering Physician: ELIZABETH LIZARRAGA, Referring Physician: ELIZABETH LIZARRAGA, Tech: Rosa Beck APPROVED REPORT EXAM: Two-dimensional and M-mode echocardiogram with Doppler and color Doppler. Other Information Quality : AverageHR: 108bpm INDICATION Atrial Fibrillation RISK FACTORS Hypertension Hyperlipidemia Diabetes 2D DIMENSIONS RVDd2.9 (2.9-3.5cm)Left Atrium(2D)3.8 (1.6-4.0cm) IVSd1.2 (0.7-1.1cm)Aortic Root(2D)2.8 (2.0-3.7cm) LVDd5.7 (3.9-5.9cm)LVOT Diameter1.9 (1.8-2.4cm) PWd1.3 (0.7-1.1cm)LVDs4.3 (2.5-4.0cm) FS (%) 24.1 %SV74.3 ml LVEF(%)47.3 (>50%) Aortic Valve AoV Peak Aries.148.0cm/sAoV VTI32.6cm AO Peak GR.8.8mmHgLVOT Peak Aries.93.8cm/s LVOT VTI 24.46cmAO Mean GR.5mmHg MANI (VMAX)1.63ub8ABL (VTI)2.24cm2 Mitral Valve MV E Rryjkwro410.9cm/sMV E Peak Gr.112mmHg MV DECEL [id number] A Tcqyjbxn50.1cm/s MV QNJ89ymS/A Ratio3.5 MVA (PHT)3.47cm2 TDI E/Lateral E'26.5E/Medial E'26.8 Pulmonary Valve PV Peak Mjaamzub40.6cm/sPV Peak Grad.4mmHg Tricuspid Valve TR P. Kwwtmvvg244ii/sRAP IVHXEWIE2gcOi TR Peak Gr.75znPsJFSQ17izLb LEFT VENTRICLE The left ventricle is normal size. There is mild concentric left ventricular hypertrophy. The left ve ntricular systolic function is normal and the ejection fraction is within normal range. The Ejection Fraction is 55%. There is normal LV segmental wall motion. Tissue Doppler imaging reveals moderate le ft ventricular diastolic dysfunction. No left ventricle thrombus noted on this study. RIGHT VENTRICLE The right ventricle is borderline dilated. There is normal right ventricular wall thickness. The righ t ventricular systolic function is normal. ATRIA The left atrium is borderline dilated. The right atrium is mildly dilated. The interatrial septum is intact with no evidence for an atrial septal defect or patent foramen ovale as noted on 2-D or Dopple r imaging. AORTIC VALVE The aortic valve is calcified with restricted leaflet motion. Doppler and Color Flow revealed trace t o mild aortic regurgitation. Calculated aortic valve area is 1.90 cm2 with maximum pressure gradient of 11 mmHg and mean pressure gradient of 6 mmHg. MITRAL VALVE The mitral valve is calcified with restricted leaflet motion. There is no evidence of mitral valve pr olapse. There is no mitral valve stenosis. Doppler and Color-flow revealed trace to mild mitral regur gitation. TRICUSPID VALVE The tricuspid valve is normal in structure and function. Doppler and Color Flow revealed mild to mode rate tricuspid regurgitation with an estimated PAP of 47 mmHg. There is mild-moderate pulmonary hyper tension. There is no tricuspid valve stenosis. PULMONIC VALVE The pulmonic valve is not well visualized. Doppler and Color Flow revealed trace pulmonic valvular re gurgitation. There is no pulmonic valvular stenosis. GREAT VESSELS The aortic root is normal in size. The ascending aorta is normal in size. The IVC was not well visual ized. PERICARDIAL EFFUSION There is a trace pericardial effusion. Critical Notification Critical Value: No <Conclusion> The left ventricular systolic function is normal and the ejection fraction is within normal range. Th e Ejection Fraction is 55%. There is normal LV segmental wall motion. Tissue Doppler imaging reveals moderate left ventricular diastolic dysfunction. Doppler and Color Flow revealed mild to moderate tricuspid regurgitation with an estimated PAP of 47 mmHg. There is mild-moderate pulmonary hypertension. Signed by : Elizabeth Lizarraga, Electronically Approved : 09/14/2020 13:39:39
== END ==
LOC: ECHO 09:20
PROVIDERS: ATTEND Internal Medicine Cardiovascular Disease
DX: I08.3 Combined rheumatic disorders of mitral, aortic and tricuspid valves (principal); I48.91 Unspecified atrial fibrillation
CPT/HCPCS: 93306

== ENCOUNTER 2021-01-09 12:54 | Inpatient (IN) | payer MEDICARE ==
[~2021-01-09] VITALS: Ht 160 cm; Wt 75.0 kg
--- NOTE | 2021-01-09 13:53 | RAD ---
Left tibia and fibula 2 views. HISTORY: Proximal left tibia pain after a fall 2 views were taken of the left tibia and fibula. There is vascular calcification. There is not eviden ce of an acute fracture or osseous abnormality. IMPRESSION: 1. Extensive vascular calcification. 2. No fracture or acute osseous abnormality left tibia or fibula. Electronically signed by: Pool Espinoza MD (01/09/2021 1:50 PM) [id number]
--- NOTE | 2021-01-09 15:26 | RAD ---
CT head without contrast: Reason for examination: Fell and hit head. On Coumadin. Helical images were obtained through the brain. No contrast was administered. Reconstruction was perf ormed in coronal plane. The ventricular systems are symmetric and not abnormally dilated. No midline shift is seen. There is no evidence of intracranial hemorrhage, infarct, mass or edema. There are some mild patchy deep white matter changes in the frontal and parietal lobes consistent with some mild microvascular ischemic ch anges. No abnormalities of seen at the orbits. The paranasal sinuses and mastoid air cells are clear. No acute skull abnormality is seen. IMPRESSION: No acute intracranial abnormality evident. CT cervical spine without contrast: Helical images were obtained through the cervical spine from skull base through the thoracic apices w ith no contrast administered. Reconstruction was performed in sagittal and coronal planes. The C1 ring is intact. The odontoid process is intact and normally centered between the lateral jason s of C1. The cervical vertebral bodies appear to be normally aligned anteriorly and posteriorly. No a cute fracture or subluxation is seen. Posterior elements appear to be intact. The intervertebral disc s are maintained. Prevertebral soft tissues are normal. There does not appear to be significant spina l stenosis. IMPRESSION: No acute abnormality in the cervical spine. CT lumbar spine without contrast: Helical images were obtained through the lumbar spine with no intravenous or oral contrast. Reconstru ction was performed in sagittal and coronal planes. There is generalized bony demineralization. There appears to be a fracture with minimal displacement but mild loss of height at the L3 vertebral body. No other site of fracture is seen. No subluxation i s seen. Posterior elements are intact. The intervertebral discs show moderate loss of disc height at the L5-S1 level with some vacuum phenomena. Remaining intervertebral discs are maintained. There does however appear to be moderate stenosis at the L3-4 due to some hypertrophic spurring off the posteri or inferior endplate of the L3 vertebral body and hypertrophic facet changes. There also appears to b e moderate stenosis at the L4-5 disc level related to some symmetric disc bulging and facet hypertrop hy. No abnormalities of seen at the sacrum or sacroiliac joints. IMPRESSION: Bony demineralization. Fracture at the L3 vertebral body without significant displacement of the bone fragments. Moderate spinal stenosis centrally at the L3-4 and L4-5 disc levels. Exposure: One or more of the following individualized dose reduction techniques were utilized for thi s examination: 1. Automated exposure control 2. Adjustment of the mA and/or kV according to patient size 3. Use of iterative reconstruction technique. Electronically signed by: Bettye Hare MD (01/09/2021 3:23 PM) [facility]
--- NOTE | 2021-01-09 15:36 | ED.ADGEN ---
Past Medical History Past Medical History: A-Fib, CHF, Hypertension Past Surgical History: No Surgical History Smoking Status: Never Smoker Alcohol Use: None Drug Use: None General Adult EDM: Chief Complaint: MECHANICAL FALL HPI: HPI: Patient is a 85 year old female who presents emergency department [place] with complaints of low back pain, and lower left leg pain after a fall today. Patient reports that she does take warfarin for A. fib. She denies any chest pain, dizziness, or syncope. Patient states that she has had problems with her back and for some reason her leg gave out on her. She states that when she landed she ran landed onto her right side. She denies any vision changes, n ausea, vomiting, numbness, tingling, or weakness. She denies any recent fever, cough, shortness of breath, abdominal pain, nausea, vomiting, or diarrhea. She denies any dysuria, hematuria, or increased urinary frequency. The patient denies any loss of bowel/ bladder control or saddle anesthesia. Patient reports that she has had problems with chronic back pain for a while and recently started wearing a abdominal binder for her back. She currently denies any pain at rest. She states it only hurts if she moves or if her left leg is touched. Review of Systems: Review of Systems: Complete ROS is negative unless otherwise noted in HPI. Allergies: Allergies: Allergies Coded Allergies Type Severity Reaction Last Updated Verified latex Allergy Intermediate RASH 02/03/17 Yes felodipine Adverse Reaction Mild COUGH 02/03/17 Yes lisinopril Adverse Reaction Mild COUGH 02/03/17 Yes Physical Exam: PE: See Above Constitutional: Well developed, well nourished, no acute distress, non-toxic appearance. [] HENT: Normocephalic, atraumatic, bilateral external ears normal, nose normal. [] Eyes: PERRLA, EOMI, conjunctiva normal, no discharge. [] Neck: Normal range of motion, no stridor. [] Cardiovascular:Heart rate regular rhythm Lungs & Thorax: Respirations even and unlabored, no retractions, no respiratory distress Abdomen: soft, no tenderness Back: Nonspecific lower back tenderness to palpation, no step-off, no crepitus, no obvious deformity, Skin: Warm, dry, no erythema, no rash. [] Extremities: LLE: Tenderness to palpation of the proximal tibia, no edema, no crepitus, no obvious deformity, no cyanosis, ROM intact, 1+ edema, sensation intact. [] Neurologic: Alert and oriented X 3, motor, normal sensory, no focal deficits noted. [] Psychologic: Affect normal, judgement normal, mood normal. [] Current Patient Data: Vital Signs: Vital Signs Date Time Temp Pulse Resp B/P (MAP) Pulse Ox O2 Delivery O2 Flow Rate FiO2 01/09/21 15:31 101 165/71 (102) 95 Room Air 01/09/21 12:55 98.5 18 98.5 EKG: EK-atrial fibrillation rate 104, no STEMI, read by Dr. Castaneda Heart Score: C/O Chest Pain: No Risk Factors: Risk Factors: DM, Current or recent (<one month) smoker, HTN, HLP, family history of CAD, obesity. Risk Scores: Score 0 - 3: 2.5% MACE over next 6 weeks - Discharge Home Score 4 - 6: 20.3% MACE over next 6 weeks - Admit for Clinical Observation Score 7 - 10: 72.7% MACE over next 6 weeks - Early Invasive Strategies Radiology/Procedures: Radiology/Procedures: PROCEDURE: CT LUMBAR SPINE WO CONTRAST CT head without contrast: Reason for examination: Fell and hit head. On Coumadin. Helical images were obtained through the brain. No contrast was administered. Reconstruction was performed in coronal plane. The ventricular systems are symmetric and not abnormally dilated. No midline shift is seen. There is no evidence of intracranial hemorrhage, infarct, mass or edema. There are some mild patchy deep white matter changes in the frontal and parietal lobes consistent with some mild microvascular ischemic changes. No abnormalities of seen at the orbits. The paranasal sinuses and mastoid air cells are clear. No acute skull abnormality is seen. IMPRESSION: No acute intracranial abnormality evident. CT cervical spine without contrast: Helical images were obtained through the cervical spine from skull base through the thoracic apices with no contrast administered. Reconstruction was performed in sagittal and coronal planes. The C1 ring is intact. The odontoid process is intact and normally centered between the lateral masses of C1. The cervical vertebral bodies appear to be normally aligned anteriorly and posteriorly. No acute fracture or subluxation is seen. Posterior elements appear to be intact. The intervertebral discs are maintained. Prevertebral soft tissues are normal. There does not appear to be significant spinal stenosis. IMPRESSION: No acute abnormality in the cervical spine. CT lumbar spine without contrast: Helical images were obtained through the lumbar spine with no intravenous or oral contrast. Reconstruction was performed in sagittal and coronal planes. There is generalized bony demineralization. There appears to be a fracture with minimal displacement but mild loss of height at the L3 vertebral body. No other site of fracture is seen. No subluxation is seen. Posterior elements are intact. The intervertebral discs show moderate loss of disc height at the L5-S1 level with some vacuum phenomena. Remaining intervertebral discs are maintained. There does however appear to be moderate stenosis at the L3-4 due to some hypertrophic spurring off the posterior inferior endplate of the L3 vertebral body and hypertrophic facet changes. There also appears to be moderate stenosis at the L4-5 disc level related to some symmetric disc bulging and facet hypertrophy. No abnormalities of seen at the sacrum or sacroiliac joints. IMPRESSION: Bony demineralization. Fracture at the L3 vertebral body without significant displacement of the bone fragments. Moderate spinal stenosis centrally at the L3-4 and L4-5 disc levels. Exposure: One or more of the following individualized dose reduction techniques were utilized for this examination: 1. Automated exposure control 2. Adjustment of the mA and/or kV according to patient size 3. Use of iterative reconstruction technique. [] PROCEDURE: TIBIA FIBULA LEFT Left tibia and fibula 2 views. HISTORY: Proximal left tibia pain after a fall 2 views were taken of the left tibia and fibula. There is vascular calcification. There is not evidence of an acute fracture or osseous abnormality. IMPRESSION: 1. Extensive vascular calcification. 2. No fracture or acute osseous abnormality left tibia or fibula. Electronically signed by: Pool Espinoza MD (01/09/2021 1:50 PM) [id number] Course & Med Decision Making: Course & Med Decision Making Pertinent Labs and Imaging studies reviewed. (See chart for details) [id number] with Dr. Fairbanks who is the admitting physician, and care was assumed following discussion of patient. Will admit patient for L3 fracture and low back pain. Will consult neurosurgery as requested. Patient's vital signs stable. Patient remains afebrile, appears nontoxic, respirations even and unlabored. Patient will be admitted to the medical/surgical floor. Patient's case and plan of care also discussed with Dr. Sorensen [] Alexsandra Disclaimer: Alexsandra Disclaimer: This electronic medical record was generated, in whole or in part, using a voice recognition dictation system. Departure Departure Referrals: GEE FAIRBANKS MD (PCP) FAHEEM URENA APRN Jan 09, 2021 15:36
[2021-01-09] MEDS ORDERED: ONDANSETRON PF 4 MG/2 ML VIAL. IV PRN (16:30)
[2021-01-09] MEDS ORDERED: MORPHINE SULFATE 2 MG/ML VIAL. IV PRN ×2 (16:30→17:15)
[2021-01-09] MEDS ORDERED: ACETAMINOPHEN 325 MG TABLET. PO PRN (17:15)
[2021-01-09] MEDS ORDERED: CYCLOBENZAPRINE 10 MG TABLET. PO PRN (17:15)
[2021-01-09] MEDS ORDERED: MAGNESIUM HYDROXIDE 2,400 MG/30 ML ORAL.SUSP. PO PRN (17:15)
--- NOTE | 2021-01-09 17:43 | PDOC ---
Provider Note Date of Service: DATE: 01/09/21 TIME: 17:43 Provider Note history and physical dictated # [id number] Justifications for Admission Other Justification GEE FAIRBANKS MD Jan 09, 2021 17:43
[2021-01-09 18:01] LABS: BASO % 1 % (0-3); EOS % 0 % (0-3); HEMATOCRIT 36.8 % (36.0-47.0); HEMOGLOBIN 12.7 g/dL (12.0-15.5); LYMPH # 1.4 x10^3/uL (1.0-4.8); LYMPH % 16 % (24-48); MEAN CORPUSCULAR HEMOGLOBIN 33 pg (25-35); MEAN CORPUSCULAR HGB CONC 35 g/dL (31-37); MEAN CORPUSCULAR VOLUME 96 fL (79-100); MONO % 11 % (0-9); NEUT # 6.2 x10^3/uL (1.8-7.7); NEUT % 72 % (31-73); PLATELET COUNT 279 x10^3/uL (140-400); RED BLOOD COUNT 3.83 x10^6/uL (3.50-5.40); RED CELL DISTRIBUTION WIDTH 15.2 % (11.5-14.5); WHITE BLOOD COUNT 8.6 x10^3/uL (4.0-11.0)
[2021-01-09 18:10] LABS: PROTHROMBIN TIME PATIENT 26.3 SEC (11.7-14.0)
[2021-01-09 18:16] LABS: CALCIUM 8.3 mg/dL (8.5-10.1); CREATININE 1.2 mg/dL (0.6-1.0); GFR 42.6; POTASSIUM 3.4 mmol/L (3.5-5.1)
[2021-01-09 18:22] LABS: ALBUMIN 3.4 g/dL (3.4-5.0); ALBUMIN/GLOBULIN RATIO 0.8 (1.0-1.7); TOTAL BILIRUBIN 0.6 mg/dL (0.2-1.0); TOTAL PROTEIN 7.9 g/dL (6.4-8.2)
--- NOTE | 2021-01-09 18:25 | RAD ---
EXAM: Frontal pelvis with bilateral two-view hip. HISTORY: Pain, fall. COMPARISON: None. FINDINGS: Osteopenia is moderate to severe. This limits sensitivity for nondisplaced fractures, but n one are seen. The joint spaces and alignment of both hips are maintained. A calcific density in the l eft lower quadrant may represent dense material in a diverticulum or old fat necrosis. Atheroscleroti c calcifications are noted. IMPRESSION: 1. No displaced fracture. Electronically signed by: Houston Palmer MD (01/09/2021 6:23 PM) [facility]
--- NOTE | 2021-01-09 18:27 | RAD ---
EXAM: CHEST ONE VIEW. HISTORY: Chest pain, fall. COMPARISON: 09/24/2019. FINDINGS: A frontal view of the chest is obtained. The lungs are expanded to the 11th posterior ribs. There are no confluent infiltrates. There is no pn eumothorax or pleural effusion. The heart is mildly enlarged given this projection. There are atheros clerotic calcifications of the aorta. There is a chronic healed fracture of the right proximal humeru s. IMPRESSION: 1. Mild cardiomegaly. 2. Hyperinflation. Correlate for air trapping. Electronically signed by: Houston Palmer MD (01/09/2021 6:25 PM) [facility]
--- NOTE | 2021-01-09 18:42 | HP ---
ADMIT DATE: 01/09/2021 LOCATION: I do not have the room number. HISTORY OF PRESENT ILLNESS: The patient is an 85-year-old white female with history of diabetes mellitus type 2, hypertension, hyperlipidemia who has persistent atrial fibrillation, treated with Coumadin who has had several week history of low back pain. She had an x-ray of the lumbar spine, which showed some mild lumbar spondylosis. Was seen by Dr. Brizuela as an outpatient and had a back brace ordered and used. Then today while she was in the kitchen, she was using her grasper to slate picker a pillow and next thing she knew she was on the floor. She hit her head. She sought help at the [facility] Emergency Room. In the Emergency Room, a CAT scan of the head and cervical spine was negative. CAT scan of the lumbar spine showed an L3 compression fracture of unknown age and lumbar spinal stenosis that caught got a couple of levels. The patient was subsequently admitted to the hospital for intractable pain and evaluation of her syncopal episode. She denies any chest pain, shortness of breath or dizziness prior to the fall. ALLERGIES AND INTOLERANCES: INCLUDE LISINOPRIL AND FELODIPINE, AND LATEX. MEDICATIONS: Include amlodipine 10 mg every day, aspirin 81 mg every day. She did have a recent urinary tract infection and COULD NOT TOLERATE CIPRO, WHICH CAUSED VISUAL COMPLAINTS and was started on Bactrim double strength and just took a tablet or so, but she had a pansensitive E. coli urinary tract infection diagnosed recently. Carvedilol 6.25 mg 1 tablet b.i.d., Flexeril 5 mg t.i.d. p.r.n., furosemide 40 mg every day, glipizide 2.5 mg every day, Cobden 5/325 one at bedtime, losartan 50 mg every day, lovastatin 40 mg every day, metformin 500 mg b.i.d., MiraLax 17 grams daily, potassium chloride 20 mEq every day, Coumadin 1.5 mg every day. PAST MEDICAL HISTORY: Significant for diabetes mellitus type 2, hypertension, hyperlipidemia, chronic atrial fibrillation, on Coumadin. She has chronic diastolic congestive heart failure. Colon polypectomy; vitrectomy, right eye. Cardiac cath showed normal coronary arteries in the year 1999, cataract extraction, esophageal dilatation, severe pulmonary hypertension and acute diastolic congestive heart failure in 2017, right humerus fracture in 2019. SOCIAL HISTORY: She does not drink alcohol nor does she smoke cigarettes. She is . FAMILY HISTORY: Noncontributory. REVIEW OF SYSTEMS: GENERAL: She denies any fever, chills or sweats in the last 3 days. CARDIOVASCULAR: No chest pain. PULMONARY: No cough or shortness of breath. GASTROINTESTINAL: No diarrhea. ENDOCRINE: She has diabetes mellitus. SKIN: No rashes. Rest of systems reviewed are negative except as stated in history of present illness. PHYSICAL EXAMINATION: VITAL SIGNS: Temperature is 98.5 degrees. The blood pressure is 165/71, heart rate is 101, oxygen saturation 95% on room air, blood pressure is 165/71. HEENT: Gaze is conjugate. Mouth: Tongue is midline without yeast. NECK: No cervical lymphadenopathy or thyroid enlargement. HEART: Reveals an S1, S2. There is no S3 or murmur. LUNGS: Clear. BACK: Shows no tenderness pinpoint in the lumbar spine. She has some tenderness in the lumbar muscles and also over the pelvic bone area. ABDOMEN: Soft with no hepatosplenomegaly, masses or tenderness. EXTREMITIES: Lower extremities without edema. SKIN: No rashes. NEUROLOGIC: Coherent. No focal weakness in the upper or lower extremities. SKIN: No rashes. REVIEW OF LABORATORY TESTS: The labs were not done. She had an x-ray of her left tibia and fibula, which showed no fracture. She had extensive vascular calcifications seen. Then, she had a CAT scan of the lumbar spine, which showed bony demineralization, fracture L3 vertebral body without significant displacement, moderate spinal stenosis at L3-L4 and L4-L5. A CAT scan of the head and cervical spine. A CAT scan of the head showed no acute abnormality. CAT scan of cervical spine, no acute abnormality. ASSESSMENT: 1. Suspected Syncopal episode. 2. Low back pain for even prior to the fall. 3. An L3 vertebral fracture, unclear if it is acute or not, but there is no pinpoint tenderness. 4. Lumbar spinal stenosis. 5. Lumbar muscle spasms. 6. Diabetes mellitus type 2. 7. Hypertension. 8. Hyperlipidemia. 9. Chronic diastolic congestive heart failure. 10. Persistent atrial fibrillation, on Coumadin. PLAN: At this time is to consult Dr. Sanders for Neurosurgery. We will also consult Dr. Verde for Cardiology, put her on telemetry. Get a CBC, CMP and a protime and INR. We will continue with her home medications and order some morphine sulfate for pain control 1 mg IV every 4 hours p.r.n. Obtain an x-ray of the pelvis and on the hips to rule out a fracture. We will also obtain a bone scan to see if the L3 compression fracture is new or old and also see if there is anything else because she is also tender in the pelvic bone. She is a do not resuscitate and discussed that in front of the patient and the patient's family member and she is coherent enough and she wants to be a do not resuscitate. We will consult Dr. Brizuela for physical rotation consultation. We will order physical and occupational therapy and telemetry. We will put her on telemetry as mentioned. We will get a chest x-ray and an EKG. GEE FAIRBANKS MD DR: BRUCE/citlaly JOB#: [id number] / [id number]
[2021-01-09] MEDS: WARFARIN 0.5 MG TABLET. PO SCH (19:30)
--- NOTE | 2021-01-09 20:48 | EKG ---
[facility] [address] [place] [address] Test Date: 2021-01-09 Test Time: 18:23:35 Pat Name: BRIANNA BAINS Department: Room: 2 Gender: F Turner Off: : 1935 Requested By: GEE FAIRBANKS Order Number: [id number] Reading MD: Measurements Intervals [place] Rate: 104 P: [place]: QRS: 7 QRSD: 102 T: 126 QT: 342 QTc: 456 Interpretive Statements IRREGULAR RHYTHM, NO P-WAVE FOUND VENTRICULAR PREMATURE COMPLEX(ES) CONSIDER LEFT VENTRICULAR HYPERTROPHY ST & T ABNORMALITY, CONSIDER HIGH LATERAL ISCHEMIA OR LEFT VENTRICULAR STRAIN ABNORMAL ECG RI6.02 No previous ECG available for comparison
[2021-01-09] MEDS: CARVEDILOL 6.25 MG TABLET. PO SCH (21:50)
[2021-01-09] MEDS: ATORVASTATIN CALCIUM 10 MG TABLET. PO SCH (21:50)
[2021-01-09] MEDS: HYDROcodone/APAP 5/325MG 1 TAB TABLET PO SCH (21:50)
[2021-01-10] MEDS ORDERED: TRAM50TA PO (00:43)
[2021-01-10 03:00] VITALS: BP 135/57
[2021-01-10 05:20] LABS: CHOLESTEROL/HDL RATIO 2.2
[2021-01-10 07:00] VITALS: BP 143/67
[2021-01-10] MEDS: glipiZIDE 5 MG TABLET PO SCH (08:00)
[2021-01-10] MEDS: FUROSEMIDE 40 MG TABLET. PO SCH (08:52)
[2021-01-10] MEDS: CARVEDILOL 6.25 MG TABLET. PO SCH ×2 (08:52→17:17)
[2021-01-10] MEDS: metFORMIN 500 MG TABLET PO SCH ×2 (08:52→17:16)
[2021-01-10] MEDS: POLYETHYLENE GLYCOL 3350 17 GM PACKET. PO SCH (08:52)
[2021-01-10] MEDS: LOSARTAN POTASSIUM 50 MG TABLET. PO SCH (08:53)
[2021-01-10] MEDS: amLODIPine BESYLATE 5 MG TABLET PO SCH (08:53)
[2021-01-10] MEDS ORDERED: POTASSIUM CHLORIDE 20 MEQ TABLET.ER. PO SCH (09:00)
--- NOTE | 2021-01-10 10:19 | PDOC ---
PROGRESS NOTES Date of Service DATE: 01/10/21 TIME: 10:14 Subjective Subjective has pain in lower back with turning in bed. x ray of hip and pelvis negative for rx. MRI of lumbar spine shows spinal stenosis and L3 vertebral fx age indeterminate. bone scan ordered. PT and OT and neurosurgery and patient safety manager consult,. potassium 3.4. inr 2.. bun 32 and creatinine 1.2. Objective Objective Vital Signs Date Time Temp Pulse Resp B/P (MAP) Pulse Ox O2 Delivery O2 Flow Rate FiO2 01/10/21 08:53 93 143/67 01/10/21 07:00 96.6 16 92 Room Air 96.6 Physical Exam Abdomen: Soft Heart: Normal S1, Normal S2 Extremities: No edema General: Alert HEENT: Atraumatic Neuro: Normal speech Psych/Mental Status: Mental status NL Skin: No rashes Assessment Assessment Problems Suspected Syncopal episode. 2. Low back pain even prior to the fall. 3. L3 vertebral fracture, unclear if it is acute or not, but there is no pinpoint tenderness. 4. Lumbar spinal stenosis. 5. Lumbar muscle spasms. 6. Diabetes mellitus type 2. 7. Hypertension. 8. Hyperlipidemia. 9. Chronic diastolic congestive heart failure. 10. Persistent atrial fibrillation, on Coumadin. disuse myopathy Medical Problems: (1) Back pain Status: Acute Plan Plan of Care telemetry cardiology consult continue coumadin. continue analgesics PT and OT neurosurgery and patient safety manager consults continue glipizide and metformin continue furosemide and increase kcl continue amlodipine and carvedilol and losartan continue atorvastatin substitute for lovastatin 40 mg daily bone scan Comment Review of Relevant I have reviewed the following items fabi (where applicable) has been applied. Labs Laboratory Tests Test 01/09/21 17:25 01/09/21 19:41 01/10/21 03:10 01/10/21 07:18 White Blood Count 8.6 x10^3/uL (4.0-11.0) Red Blood Count 3.83 x10^6/uL (3.50-5.40) Hemoglobin 12.7 g/dL (12.0-15.5) Hematocrit 36.8 % (36.0-47.0) Mean Corpuscular Volume 96 fL (79-100) Mean Corpuscular Hemoglobin 33 pg (25-35) Mean Corpuscular Hemoglobin Concent 35 g/dL (31-37) Red Cell Distribution Width 15.2 % (11.5-14.5) Platelet Count 279 x10^3/uL (140-400) Neutrophils (%) (Auto) 72 % (31-73) Lymphocytes (%) (Auto) 16 % (24-48) Monocytes (%) (Auto) 11 % (0-9) Eosinophils (%) (Auto) 0 % (0-3) Basophils (%) (Auto) 1 % (0-3) Neutrophils # (Auto) 6.2 x10^3/uL (1.8-7.7) Lymphocytes # (Auto) 1.4 x10^3/uL (1.0-4.8) Monocytes # (Auto) 1.0 x10^3/uL (0.0-1.1) Eosinophils # (Auto) 0.0 x10^3/uL (0.0-0.7) Basophils # (Auto) 0.0 x10^3/uL (0.0-0.2) Prothrombin Time 26.3 SEC (11.7-14.0) Prothromb Time International Ratio 2.4 (0.8-1.1) Sodium Level 139 mmol/L (136-145) Potassium Level 3.4 mmol/L (3.5-5.1) Chloride Level 100 mmol/L (98-107) Carbon Dioxide Level 28 mmol/L (21-32) Anion Gap 11 (6-14) Blood Urea Nitrogen 32 mg/dL (7-20) Creatinine 1.2 mg/dL (0.6-1.0) Estimated GFR (Cockcroft-Gault) 42.6 BUN/Creatinine Ratio 27 (6-20) Glucose Level 125 mg/dL (70-99) Calcium Level 8.3 mg/dL (8.5-10.1) Total Bilirubin 0.6 mg/dL (0.2-1.0) Aspartate Amino Transf (AST/SGOT) 13 U/L (15-37) Alanine Aminotransferase (ALT/SGPT) 17 U/L (14-59) Alkaline Phosphatase 108 U/L (46-116) Total Protein 7.9 g/dL (6.4-8.2) Albumin 3.4 g/dL (3.4-5.0) Albumin/Globulin Ratio 0.8 (1.0-1.7) Glucose (Fingerstick) 132 mg/dL (70-99) 93 mg/dL (70-99) Triglycerides Level 56 mg/dL (0-150) Cholesterol Level 139 mg/dL (0-200) LDL Cholesterol, Calculated 66 mg/dL (0-100) VLDL Cholesterol, Calculated 11 mg/dL (0-40) Non-HDL Cholesterol Calculated 77 mg/dL (0-129) HDL Cholesterol 62 mg/dL (40-60) Cholesterol/HDL Ratio 2.2 Laboratory Tests Test 01/09/21 17:25 01/09/21 19:41 01/10/21 03:10 01/10/21 07:18 White Blood Count 8.6 x10^3/uL (4.0-11.0) Red Blood Count 3.83 x10^6/uL (3.50-5.40) Hemoglobin 12.7 g/dL (12.0-15.5) Hematocrit 36.8 % (36.0-47.0) Mean Corpuscular Volume 96 fL (79-100) Mean Corpuscular Hemoglobin 33 pg (25-35) Mean Corpuscular Hemoglobin Concent 35 g/dL (31-37) Red Cell Distribution Width 15.2 % (11.5-14.5) Platelet Count 279 x10^3/uL (140-400) Neutrophils (%) (Auto) 72 % (31-73) Lymphocytes (%) (Auto) 16 % (24-48) Monocytes (%) (Auto) 11 % (0-9) Eosinophils (%) (Auto) 0 % (0-3) Basophils (%) (Auto) 1 % (0-3) Neutrophils # (Auto) 6.2 x10^3/uL (1.8-7.7) Lymphocytes # (Auto) 1.4 x10^3/uL (1.0-4.8) Monocytes # (Auto) 1.0 x10^3/uL (0.0-1.1) Eosinophils # (Auto) 0.0 x10^3/uL (0.0-0.7) Basophils # (Auto) 0.0 x10^3/uL (0.0-0.2) Prothrombin Time 26.3 SEC (11.7-14.0) Prothromb Time International Ratio 2.4 (0.8-1.1) Sodium Level 139 mmol/L (136-145) Potassium Level 3.4 mmol/L (3.5-5.1) Chloride Level 100 mmol/L (98-107) Carbon Dioxide Level 28 mmol/L (21-32) Anion Gap 11 (6-14) Blood Urea Nitrogen 32 mg/dL (7-20) Creatinine 1.2 mg/dL (0.6-1.0) Estimated GFR (Cockcroft-Gault) 42.6 BUN/Creatinine Ratio 27 (6-20) Glucose Level 125 mg/dL (70-99) Calcium Level 8.3 mg/dL (8.5-10.1) Total Bilirubin 0.6 mg/dL (0.2-1.0) Aspartate Amino Transf (AST/SGOT) 13 U/L (15-37) Alanine Aminotransferase (ALT/SGPT) 17 U/L (14-59) Alkaline Phosphatase 108 U/L (46-116) Total Protein 7.9 g/dL (6.4-8.2) Albumin 3.4 g/dL (3.4-5.0) Albumin/Globulin Ratio 0.8 (1.0-1.7) Glucose (Fingerstick) 132 mg/dL (70-99) 93 mg/dL (70-99) Triglycerides Level 56 mg/dL (0-150) Cholesterol Level 139 mg/dL (0-200) LDL Cholesterol, Calculated 66 mg/dL (0-100) VLDL Cholesterol, Calculated 11 mg/dL (0-40) Non-HDL Cholesterol Calculated 77 mg/dL (0-129) HDL Cholesterol 62 mg/dL (40-60) Cholesterol/HDL Ratio 2.2 Medications Current Medications Ondansetron HCl (Zofran) 4 mg PRN Q8HRS PRN IV NAUSEA/VOMITING; Start 01/09/21 at 16:30; Stop 01/10/21 at 16:29 Morphine Sulfate (Morphine Sulfate) 2 mg PRN Q2HR PRN IV PAIN; Start 01/09/21 at 16:30; Stop 01/09/21 at 17:45; Status DC Morphine Sulfate (Morphine Sulfate) 1 mg PRN Q4HRS PRN IV SEVERE PAIN 7-10; Start 01/09/21 at 17:15 Amlodipine Besylate (Norvasc) 10 mg DAILY PO Last administered on 01/10/21 08:53; Start 01/10/21 at 09:00 Carvedilol (Coreg) 6.25 mg BIDWMEALS PO Last administered on 01/10/21 08:52; Start 01/09/21 at 21:00 Cyclobenzaprine HCl (Flexeril) 5 mg PRN TID PRN PO MUSCLE SPASMS Last administered on 01/09/21 21:50; Start 01/09/21 at 17:15 Furosemide (Lasix) 40 mg DAILY PO Last administered on 01/10/21 08:52; Start 01/10/21 at 09:00 Glipizide (Glucotrol) 2.5 mg DAILYWBKFT PO Last administered on 01/10/21 08:00; Start 01/10/21 at 08:00 Acetaminophen/ Hydrocodone Bitart (Lortab 5/325) 1 tab QHS PO Last administered on 01/09/21at 21:50; Start 01/09/21 at 21:00 Acetaminophen/ Hydrocodone Bitart (Lortab 5/325) 1 tab PRN Q4HRS PRN PO SEVERE PAIN 7-10; Start 01/09/21 at 17:15 Losartan Potassium (Cozaar) 50 mg DAILY PO Last administered on 01/10/21 08:53; Start 01/10/21 at 09:00 Atorvastatin Calcium (Lipitor) 10 mg QHS PO Last administered on 01/09/21 21:50; Start 01/09/21 at 21:00 Metformin HCl (Glucophage) 500 mg BIDWMEALS PO Last administered on 01/10/21 08:52; Start 01/10/21 at 08:00 Polyethylene Glycol (miraLAX PACKET) 17 gm DAILY PO Last administered on 01/10/21 08:52; Start 01/10/21 at 09:00 Potassium Chloride (Klor-Con) 20 meq DAILY PO Last administered on 01/10/21 08:54; Start 01/10/21 at 09:00 Warfarin Sodium (Coumadin) 1.5 mg DAILY16 PO Last administered on 01/09/21 19:30; Start 01/09/21 at 19:30 Acetaminophen (Tylenol) 650 mg PRN Q6HRS PRN PO MILD PAIN / TEMP > 100.3'F; Start 01/09/21 at 17:15 Magnesium Hydroxide (Milk Of Magnesia) 2,400 mg PRN DAILY PRN PO CONSTIPATION; Start 01/09/21 at 17:15 Warfarin Sodium (Coumadin Per Physician) 1 each PRN DAILY PRN MC SEE COMMENTS; Start 01/09/21 at 18:30 Active Scripts Active Hydrocodone-Apap 5-325 (Hydrocodone Bit/Acetaminophen) 1 Tab Tablet 1 Tab PO PRN Q4HRS PRN Coumadin (Warfarin Sodium) 2.5 Mg Tablet 2 Mg PO DAILY16 Furosemide 40 Mg Tablet 40 Mg PO DAILY Reported Tramadol Hcl 50 Mg Tablet 1 Tab PO PRN Q6HRS PRN Carvedilol 25 Mg Tablet 6.25 Mg PO BIDWMEALS Aspirin Ec (Aspirin) 81 Mg Tablet.dr 81 Mg PO Potassium Chloride (Potassium Chloride) 20 Meq Tablet.er 20 Meq PO DAILY Lovastatin 40 Mg Tablet 40 Mg PO HS Metformin Hcl 500 Mg Tablet 500 Mg PO BIDWMEALS Tylenol (Acetaminophen) 325 Mg Tablet 1-2 Tab PO PRN Q4HRS Losartan Potassium 100 Mg Tablet 50 Mg PO DAILY Glipizide 5 Mg Tablet 5 Mg PO DAILY Amlodipine Besylate 10 Mg Tablet 10 Mg PO DAILY Vitals/I & O Vital Sign - Last 24 Hours 01/09/21 01/09/21 01/09/21 01/09/21 12:55 13:00 13:14 13:30 Temp 98.5 98.5 Pulse 101 108 121 104 Resp 18 B/P (MAP) 146/102 (117) 146/107 (120) 166/67 (100) 156/73 (100) Pulse Ox 99 97 97 96 O2 Delivery Room Air Room Air Room Air Room Air 01/09/21 01/09/21 01/09/21 01/09/21 14:31 15:01 15:31 20:00 Pulse 109 115 101 B/P (MAP) 172/67 (102) 178/69 (105) 165/71 (102) Pulse Ox 95 96 95 O2 Delivery Room Air Room Air Room Air Room Air 01/09/21 01/09/21 01/09/21 01/10/21 21:50 21:50 22:50 03:00 Temp 98.6 98.6 Pulse 101 95 B/P (MAP) 165/71 135/57 (83) Pulse Ox 95 95 96 O2 Delivery Room Air 01/10/21 01/10/21 01/10/21 01/10/21 07:00 08:52 08:53 08:53 Temp 96.6 96.6 Pulse 84 93 93 93 Resp 16 B/P (MAP) 143/67 (92) 143/67 143/67 143/67 Pulse Ox 92 O2 Delivery Room Air Justifications for Admission Other Justification GEE FAIRBANKS MD Jan 10, 2021 10:19
--- NOTE | 2021-01-10 11:32 | PDOC2 ---
JANN GAGNON SALES AND MARKETING SPECIALIST 01/10/21 1132: CARDIAC CONSULT DATE OF CONSULT Date of Consult DATE: 01/10/21 TIME: 11:26 REASON FOR CONSULT Reason for Consult: syncope AFIB REFERRING PHYSICIAN Referring Physician: Dr. Cintron SOURCE Source: Chart review, Patient HISTORY OF PRESENT ILLNESS HISTORY OF PRESENT ILLNESS This is an 85 yo female who presented with complaints of back and LLE pain secondary to fall. Patient reports she was transferring from one chair to another. Spoke with daughter, Shara, who was at home with her and witnessed the fall. Patient was using walker and backed up to the chair. She did not get h erself completely back to the chair prior to sitting down. Ended up only sitting down on the right edge of the chair and went off the cushion onto the floor onto her right ride. Did hit her head on the floor. CT head without acute findings. Is no warfarin for AFIB. There was no dizziness, syncope, or LOC. Patient presently denies any dizziness, diaphoresis, shortness of breath, or nausea/vomiting. She was diagnosed with UTI 2 days ago and was started on antibiotic therapy PAST MEDICAL HISTORY Cardiovascular: AFIB, CHF, HTN, Hyperlipidemia, Pulmonary hypertension Musculoskeletal: low back pain, Osteoarthritis Endocrine: Diabetes, Osteoporosis PAST SURGICAL HISTORY Past Surgical History: Cataract Removal FAMILY HISTORY Family History: Hypertension SOCIAL HISTORY Smoke: No ALCOHOL: none Drugs: None Lives: with Family CURRENT MEDICATIONS CURRENT MEDICATIONS Current Medications Medications (Trade) Dose Ordered Sig/Liban Route PRN Reason Start Time Stop Time Status Last Admin Dose Admin Amlodipine Besylate (Norvasc) 10 mg DAILY PO 01/10/21 09:00 01/10/21 08:53 Carvedilol (Coreg) 6.25 mg BIDWMEALS PO 01/09/21 21:00 01/10/21 08:52 Cyclobenzaprine HCl (Flexeril) 5 mg PRN TID PRN PO MUSCLE SPASMS 01/09/21 17:15 01/09/21 21:50 Furosemide (Lasix) 40 mg DAILY PO 01/10/21 09:00 01/10/21 08:52 Glipizide (Glucotrol) 2.5 mg DAILYWBKFT PO 01/10/21 08:00 01/10/21 08:00 Acetaminophen/ Hydrocodone Bitart (Lortab 5/325) 1 tab QHS PO 01/09/21 21:00 01/09/21 21:50 Losartan Potassium (Cozaar) 50 mg DAILY PO 01/10/21 09:00 01/10/21 08:53 Atorvastatin Calcium (Lipitor) 10 mg QHS PO 01/09/21 21:00 01/09/21 21:50 Metformin HCl (Glucophage) 500 mg BIDWMEALS PO 01/10/21 08:00 01/10/21 08:52 Polyethylene Glycol (miraLAX PACKET) 17 gm DAILY PO 01/10/21 09:00 01/10/21 08:52 Potassium Chloride (Klor-Con) 20 meq DAILY PO 01/10/21 09:00 01/10/21 10:21 DC 01/10/21 08:54 Warfarin Sodium (Coumadin) 1.5 mg DAILY16 PO 01/09/21 19:30 01/09/21 19:30 ALLERGIES ALLERGIES: Coded Allergies: latex (Verified Allergy, Intermediate, RASH, 02/03/17) felodipine (Verified Adverse Reaction, Mild, COUGH, 02/03/17) lisinopril (Verified Adverse Reaction, Mild, COUGH, 02/03/17) ROS Review of System 14 point ROS conducted with pertinent positives noted above in hPI PHYSICAL EXAM General: Alert, Oriented X3, Cooperative, No acute distress HEENT: Atraumatic, Mucous membr. moist/pink Lungs: Clear to auscultation Heart: Other (AFIB- rate controlled ) Abdomen: Soft, No tenderness Extremities: No edema, Normal pulses Neuro: Normal speech, Sensation intact Psych/Mental Status: Mental status NL, Mood NL MUSCULOSKELETAL: Osteoarthritic changes both hands VITALS/I&O VITALS/I&O: Vital Signs Date Time Temp Pulse Resp B/P (MAP) Pulse Ox O2 Delivery O2 Flow Rate FiO2 01/10/21 08:53 93 143/67 01/10/21 08:00 Room Air 01/10/21 07:00 96.6 16 92 96.6 LABS Lab: Laboratory Tests Test 01/09/21 17:25 01/09/21 19:41 01/10/21 03:10 01/10/21 07:18 White Blood Count 8.6 x10^3/uL (4.0-11.0) Red Blood Count 3.83 x10^6/uL (3.50-5.40) Hemoglobin 12.7 g/dL (12.0-15.5) Hematocrit 36.8 % (36.0-47.0) Mean Corpuscular Volume 96 fL (79-100) Mean Corpuscular Hemoglobin 33 pg (25-35) Mean Corpuscular Hemoglobin Concent 35 g/dL (31-37) Red Cell Distribution Width 15.2 % (11.5-14.5) H Platelet Count 279 x10^3/uL (140-400) Neutrophils (%) (Auto) 72 % (31-73) Lymphocytes (%) (Auto) 16 % (24-48) L Monocytes (%) (Auto) 11 % (0-9) H Eosinophils (%) (Auto) 0 % (0-3) Basophils (%) (Auto) 1 % (0-3) Neutrophils # (Auto) 6.2 x10^3/uL (1.8-7.7) Lymphocytes # (Auto) 1.4 x10^3/uL (1.0-4.8) Monocytes # (Auto) 1.0 x10^3/uL (0.0-1.1) Eosinophils # (Auto) 0.0 x10^3/uL (0.0-0.7) Basophils # (Auto) 0.0 x10^3/uL (0.0-0.2) Prothrombin Time 26.3 SEC (11.7-14.0) H Prothrombin Time INR 2.4 (0.8-1.1) H Sodium Level 139 mmol/L (136-145) Potassium Level 3.4 mmol/L (3.5-5.1) L Chloride Level 100 mmol/L (98-107) Carbon Dioxide Level 28 mmol/L (21-32) Anion Gap 11 (6-14) Blood Urea Nitrogen 32 mg/dL (7-20) H Creatinine 1.2 mg/dL (0.6-1.0) H Estimated GFR (Cockcroft-Gault) 42.6 BUN/Creatinine Ratio 27 (6-20) H Glucose Level 125 mg/dL (70-99) H Calcium Level 8.3 mg/dL (8.5-10.1) L Total Bilirubin 0.6 mg/dL (0.2-1.0) Aspartate Amino Transferase (AST) 13 U/L (15-37) L Alanine Aminotransferase (ALT) 17 U/L (14-59) Alkaline Phosphatase 108 U/L (46-116) Total Protein 7.9 g/dL (6.4-8.2) Albumin 3.4 g/dL (3.4-5.0) Albumin/Globulin Ratio 0.8 (1.0-1.7) L Glucose (Fingerstick) 132 mg/dL (70-99) H 93 mg/dL (70-99) Triglycerides Level 56 mg/dL (0-150) Cholesterol Level 139 mg/dL (0-200) LDL Cholesterol, Calculated 66 mg/dL (0-100) VLDL Cholesterol, Calculated 11 mg/dL (0-40) Non-HDL Cholesterol Calculated 77 mg/dL (0-129) HDL Cholesterol 62 mg/dL (40-60) H Cholesterol/HDL Ratio 2.2 Laboratory Tests 01/09/21 17:25 Laboratory Tests 01/09/21 17:25 ECHOCARDIOGRAM ECHOCARDIOGRAM <Conclusion> The left ventricular systolic function is normal and the ejection fraction is within normal range. The Ejection Fraction is 55%. There is normal LV segmental wall motion. Tissue Doppler imaging reveals moderate left ventricular diastolic dysfunction. Doppler and Color Flow revealed mild to moderate tricuspid regurgitation with an estimated PAP of 47 mmHg. There is mild-moderate pulmonary hypertension. DATE: 09/14/20 [id number] ASSESSMENT/PLAN ASSESSMENT/PLAN 1. Mechanical fall with low back and LLE pain; patient did not back up to chair completely prior to sitting and fell off the front of the chair to the ground. Daughter present at fall, but was not able to break. No dizziness, syncope, or LOC. CT head without acute finding. CT lumber spine with nondisplaced L3 vertebral body fracture. No acute hip or pelvis fracture 2. Persistent AFIB; rate controlled. on warfarin for stroke prophylaxis. INR 2.4 3. Chronic diastolic CHF; clinically compensated. Echo 09/30 with preserved LV systolic function as noted above. 4. Hypertension; controlled 5. Hyperlipidemia 6. Recent UTI 7. PONCHO 8. Hypokalemia; replaced 9. Moderate pulm HTN Recommendations Continue BB for rate control Risks versus benefits of OAC discussed with patient and daughter. They would like to continue for now. If recurrent falls, would recommend discontinuing OAC and placing on ASA therapy alone. Okay to hold until seen by neurosurgery Supportive care from a CV standpoint No further inpatient testing at this time. ELIZABETH VAN MD 01/10/21 1456: CARDIAC CONSULT ASSESSMENT/PLAN ASSESSMENT/PLAN The patient was seen and interviewed as well as examined at the bedside. The chart was reviewed. The case was discussed. Agree with the plan of care. JANN GAGNON APRN Jan 10, 2021 11:32 ELIZABETH VAN MD Jan 10, 2021 14:56
[2021-01-10 15:00] VITALS: BP 152/61
[2021-01-10] MEDS: cefTRIAXone IV Push 1 GM VIAL. IVP SCH (15:12)
--- NOTE | 2021-01-10 15:39 | CONS ---
DATE OF CONSULTATION: 01/10/2021 ATTENDING PHYSICIAN: Dmitri Cintron MD REASON FOR CONSULTATION: The patient was seen at the request of Dr. Cintron for rehab evaluation. LOCATION: She is in room 672. HISTORY OF PRESENT ILLNESS: This is an 85-year-old right-handed female known to me from the last couple of months. The patient with diabetes mellitus type 2, hypertension, hyperlipidemia, persistent atrial fibrillation, on anticoagulation. The patient with lower back pain for the last 4-5 weeks, started after she had a fall. X-rays of lumbar spine revealed mild lumbar spondylosis. I saw her in the office a couple of times. I have injected painful trigger points over right lumbar paraspinal muscles with some help and she came the following week, and I have injected painful right sacroiliac joint area and her daughter called me yesterday after she fell in the kitchen while trying to grasp a pillow. The patient had multiple radiological studies, which revealed multilevel degenerative disk disease and degenerative joint disease of cervical and lumbar vertebrae with L3 vertebral body compression fractures of unknown age and lumbar spinal stenosis at couple of levels. The patient was admitted for further evaluation and treatment. This morning, she feels better. She admits pain mainly when she is moving. She had lumbar corset given an outpatient basis. ALLERGIES: THE PATIENT IS KNOWN ALLERGIC TO LISINOPRIL, FELODIPINE, AND LATEX. PAST MEDICAL HISTORY: The patient also had history of chronic congestive heart failure diastolic, status post colon polypectomy, vitrectomy right eye, cataract extraction, esophageal dilatation, severe pulmonary hypertension, right humerus fracture in 2019. SOCIAL HISTORY: She lives alone. The patient had a roller walker to use. PHYSICAL EXAMINATION: GENERAL: Today revealed an elderly female. She is alert, oriented to time, place, person, circumstance and follows commands appropriately. EXTREMITIES: Moves all 4 extremities voluntarily where she had 4+/5 grade muscle strength. Deep tendon reflexes are 1-2+ and symmetrical in upper extremities, decreased to absent in her lower extremities. She had equal perception of touch and pinprick sensation bilaterally. She had crepitus on range of motion of her knee joints. No significant pain on hip joint range of motion. She had tenderness to palpation over sacroiliac joint area and adjoining lower lumbar paraspinal muscles, mainly on the right side. Straight leg raising test is negative bilaterally. Her skin is intact at this time. I have not tested her transfers or ambulation skills at this time, as she does not have a lumbar corset in place. ASSESSMENT: Elderly female with recent fall and radiological evidence of L3 vertebral body compression fracture in a patient with chronic lower back pain from degenerative disk disease and degenerative joint disease of lumbar vertebrae without any clinical evidence of ongoing lumbar radiculopathy, clinical evidence of peripheral neuropathy from diabetes mellitus, degenerative joint disease of both knees. The patient with known hypertension, hyperlipidemia, chronic atrial fibrillation, on anticoagulation, chronic diastolic congestive heart failure. RECOMMENDATION: Await bone scan results. If there is new compression fracture, to proceed with kyphoplasty of L3 vertebral body to get her up with lumbar corset as tolerated. Hopefully, home when medically stable with outpatient followup. Dr. Cintron, I appreciate asking me to participate in the care of this interesting patient. I will be glad to see her for followup with you on as needed basis. ABRAHAM BOX MD DR: JULEE/citlaly JOB#: [id number] / [id number]
[2021-01-10] MEDS: WARFARIN 0.5 MG TABLET. PO SCH (16:00)
--- NOTE | 2021-01-10 16:55 | NUR ---
1600 WARFARIN HELD D/T PT MIGHT HAVE PROCEDURE 01/11
--- NOTE | 2021-01-10 17:14 | RAD ---
NM BONE SCAN WHOLE BODY History: Reason: back and pelvic bone pain. L# fx possible acute / Spl. Instructions: / History: Comparison: CT January 09, 2021. Technique: Examination performed after intravenous administration of 25 mCi Technetium 99m MDP. Imag es of the whole body were obtained in the anterior and posterior projections. Findings: Increased uptake within the L3 vertebral body and the region of the known fracture. Increa sed uptake within the foot, wrists, elbows and shoulders likely related to degenerative changes. Phys iologic uptake within the kidneys and urinary bladder. Impression: 1. Increased radiotracer uptake within acute L3 vertebral body fracture. Electronically signed by: Andi Smith DO (01/10/2021 5:12 PM) [id number]
[2021-01-10 19:00] VITALS: BP 128/59
[2021-01-10] MEDS: ATORVASTATIN CALCIUM 10 MG TABLET. PO SCH (21:57)
[2021-01-10] MEDS: POTASSIUM CHLORIDE 20 MEQ TABLET.ER. PO SCH (21:57)
[2021-01-10] MEDS: HYDROcodone/APAP 5/325MG 1 TAB TABLET PO SCH (21:58)
[2021-01-10 23:00] VITALS: BP 132/58
[2021-01-11 03:00] VITALS: BP 123/56
[2021-01-11] MEDS ORDERED: WARFARIN 0.5 MG TABLET. PO SCH (04:49)
[2021-01-11 06:26] LABS: CALCIUM 8.9 mg/dL (8.5-10.1); CREATININE 1.1 mg/dL (0.6-1.0); GFR 47.1; MAGNESIUM 1.9 mg/dL (1.8-2.4); POTASSIUM 4.2 mmol/L (3.5-5.1)
[2021-01-11 06:30] LABS: PROTHROMBIN TIME PATIENT 23.3 SEC (11.7-14.0)
[2021-01-11 07:00] VITALS: BP 135/65
[2021-01-11] MEDS: metFORMIN 500 MG TABLET PO SCH ×2 (08:00→17:14)
[2021-01-11] MEDS: CARVEDILOL 6.25 MG TABLET. PO SCH ×2 (08:00→17:15)
[2021-01-11] MEDS: glipiZIDE 5 MG TABLET PO SCH (08:00)
--- NOTE | 2021-01-11 09:16 | PDOC ---
PROGRESS NOTES Date of Service DATE: 01/11/21 TIME: 08:58 Subjective Subjective No new complaints. Objective Objective Vital Signs Date Time Temp Pulse Resp B/P (MAP) Pulse Ox O2 Delivery O2 Flow Rate FiO2 01/11/21 07:00 96.7 103 22 135/65 (88) 96 Room Air 96.7 Physical Exam Physical Exam She is alert,supine in bed and she required minimal assistance in coming to a sitting position and she felt some discomfort while coming to a sitting position but then she got up and walked with wide based gait using roller walker on level surface.No change with her neurological status. No tenderness to palpation over lumbar spine area it self but some tenderness to palpation over right sacroiliac joint area. Assessment Assessment Problems Medical Problems: (1) Back pain Status: Acute Plan Plan of Care Before getting her up I spoke to her and her daughter about kyphoplasty as bone scan revealed increased uptake at L3 level and they agree for kyphoplasty as patient's ahd the procedure done in the past with good results and I have consulted IR for it,but the way she is moving,I am not sure,she really needs kyphoplasty. To let Abdulaziz Morales Holaday and IR decide on it. Comment Review of Relevant I have reviewed the following items fabi (where applicable) has been applied. Labs Laboratory Tests Test 01/09/21 17:25 01/09/21 19:41 01/10/21 03:10 01/10/21 07:18 White Blood Count 8.6 x10^3/uL (4.0-11.0) Red Blood Count 3.83 x10^6/uL (3.50-5.40) Hemoglobin 12.7 g/dL (12.0-15.5) Hematocrit 36.8 % (36.0-47.0) Mean Corpuscular Volume 96 fL (79-100) Mean Corpuscular Hemoglobin 33 pg (25-35) Mean Corpuscular Hemoglobin Concent 35 g/dL (31-37) Red Cell Distribution Width 15.2 % (11.5-14.5) Platelet Count 279 x10^3/uL (140-400) Neutrophils (%) (Auto) 72 % (31-73) Lymphocytes (%) (Auto) 16 % (24-48) Monocytes (%) (Auto) 11 % (0-9) Eosinophils (%) (Auto) 0 % (0-3) Basophils (%) (Auto) 1 % (0-3) Neutrophils # (Auto) 6.2 x10^3/uL (1.8-7.7) Lymphocytes # (Auto) 1.4 x10^3/uL (1.0-4.8) Monocytes # (Auto) 1.0 x10^3/uL (0.0-1.1) Eosinophils # (Auto) 0.0 x10^3/uL (0.0-0.7) Basophils # (Auto) 0.0 x10^3/uL (0.0-0.2) Prothrombin Time 26.3 SEC (11.7-14.0) Prothromb Time International Ratio 2.4 (0.8-1.1) Sodium Level 139 mmol/L (136-145) Potassium Level 3.4 mmol/L (3.5-5.1) Chloride Level 100 mmol/L (98-107) Carbon Dioxide Level 28 mmol/L (21-32) Anion Gap 11 (6-14) Blood Urea Nitrogen 32 mg/dL (7-20) Creatinine 1.2 mg/dL (0.6-1.0) Estimated GFR (Cockcroft-Gault) 42.6 BUN/Creatinine Ratio 27 (6-20) Glucose Level 125 mg/dL (70-99) Calcium Level 8.3 mg/dL (8.5-10.1) Total Bilirubin 0.6 mg/dL (0.2-1.0) Aspartate Amino Transf (AST/SGOT) 13 U/L (15-37) Alanine Aminotransferase (ALT/SGPT) 17 U/L (14-59) Alkaline Phosphatase 108 U/L (46-116) Total Protein 7.9 g/dL (6.4-8.2) Albumin 3.4 g/dL (3.4-5.0) Albumin/Globulin Ratio 0.8 (1.0-1.7) Glucose (Fingerstick) 132 mg/dL (70-99) 93 mg/dL (70-99) Triglycerides Level 56 mg/dL (0-150) Cholesterol Level 139 mg/dL (0-200) LDL Cholesterol, Calculated 66 mg/dL (0-100) VLDL Cholesterol, Calculated 11 mg/dL (0-40) Non-HDL Cholesterol Calculated 77 mg/dL (0-129) HDL Cholesterol 62 mg/dL (40-60) Cholesterol/HDL Ratio 2.2 Test 01/10/21 16:41 01/10/21 21:11 01/11/21 03:54 01/11/21 07:09 Glucose (Fingerstick) 115 mg/dL (70-99) 153 mg/dL (70-99) 114 mg/dL (70-99) Prothrombin Time 23.3 SEC (11.7-14.0) Prothromb Time International Ratio 2.1 (0.8-1.1) Sodium Level 140 mmol/L (136-145) Potassium Level 4.2 mmol/L (3.5-5.1) Chloride Level 104 mmol/L (98-107) Carbon Dioxide Level 29 mmol/L (21-32) Anion Gap 7 (6-14) Blood Urea Nitrogen 26 mg/dL (7-20) Creatinine 1.1 mg/dL (0.6-1.0) Estimated GFR (Cockcroft-Gault) 47.1 Glucose Level 72 mg/dL (70-99) Calcium Level 8.9 mg/dL (8.5-10.1) Magnesium Level 1.9 mg/dL (1.8-2.4) Laboratory Tests Test 01/10/21 16:41 01/10/21 21:11 01/11/21 03:54 01/11/21 07:09 Glucose (Fingerstick) 115 mg/dL (70-99) 153 mg/dL (70-99) 114 mg/dL (70-99) Prothrombin Time 23.3 SEC (11.7-14.0) Prothromb Time International Ratio 2.1 (0.8-1.1) Sodium Level 140 mmol/L (136-145) Potassium Level 4.2 mmol/L (3.5-5.1) Chloride Level 104 mmol/L (98-107) Carbon Dioxide Level 29 mmol/L (21-32) Anion Gap 7 (6-14) Blood Urea Nitrogen 26 mg/dL (7-20) Creatinine 1.1 mg/dL (0.6-1.0) Estimated GFR (Cockcroft-Gault) 47.1 Glucose Level 72 mg/dL (70-99) Calcium Level 8.9 mg/dL (8.5-10.1) Magnesium Level 1.9 mg/dL (1.8-2.4) Medications Current Medications Ondansetron HCl (Zofran) 4 mg PRN Q8HRS PRN IV NAUSEA/VOMITING; Start 01/09/21 at 16:30; Stop 01/10/21 at 16:29; Status DC Morphine Sulfate (Morphine Sulfate) 2 mg PRN Q2HR PRN IV PAIN; Start 01/09/21 at 16:30; Stop 01/09/21 at 17:45; Status DC Morphine Sulfate (Morphine Sulfate) 1 mg PRN Q4HRS PRN IV SEVERE PAIN 7-10; Start 01/09/21 at 17:15 Amlodipine Besylate (Norvasc) 10 mg DAILY PO Last administered on 01/10/21at 08:53; Start 01/10/21 at 09:00 Carvedilol (Coreg) 6.25 mg BIDWMEALS PO Last administered on 01/10/21at 17:17; Start 01/09/21 at 21:00 Cyclobenzaprine HCl (Flexeril) 5 mg PRN TID PRN PO MUSCLE SPASMS Last administered on 01/09/21at 21:50; Start 01/09/21 at 17:15 Furosemide (Lasix) 40 mg DAILY PO Last administered on 01/10/21at 08:52; Start 01/10/21 at 09:00 Glipizide (Glucotrol) 2.5 mg DAILYWBKFT PO Last administered on 01/10/21at 08:00; Start 01/10/21 at 08:00 Acetaminophen/ Hydrocodone Bitart (Lortab 5/325) 1 tab QHS PO Last administered on 01/10/21at 21:58; Start 01/09/21 at 21:00 Acetaminophen/ Hydrocodone Bitart (Lortab 5/325) 1 tab PRN Q4HRS PRN PO SEVERE PAIN 7-10; Start 01/09/21 at 17:15 Losartan Potassium (Cozaar) 50 mg DAILY PO Last administered on 01/10/21at 08:53; Start 01/10/21 at 09:00 Atorvastatin Calcium (Lipitor) 10 mg QHS PO Last administered on 01/10/21 21:57; Start 01/09/21 at 21:00 Metformin HCl (Glucophage) 500 mg BIDWMEALS PO Last administered on 01/10/21at 17:16; Start 01/10/21 at 08:00 Polyethylene Glycol (miraLAX PACKET) 17 gm DAILY PO Last administered on 01/10/21at 08:52; Start 01/10/21 at 09:00 Potassium Chloride (Klor-Con) 20 meq DAILY PO Last administered on 01/10/21at 08:54; Start 01/10/21 at 09:00; Stop 01/10/21 at 10:21; Status DC Warfarin Sodium (Coumadin) 1.5 mg DAILY16 PO Last administered on 01/09/21at 19:30; Start 01/09/21 at 19:30; Stop 01/11/21 at 04:49; Status DC Acetaminophen (Tylenol) 650 mg PRN Q6HRS PRN PO MILD PAIN / TEMP > 100.3'F; Start 01/09/21 at 17:15 Magnesium Hydroxide (Milk Of Magnesia) 2,400 mg PRN DAILY PRN PO CONSTIPATION; Start 01/09/21 at 17:15 Warfarin Sodium (Coumadin Per Physician) 1 each PRN DAILY PRN MC SEE COMMENTS Last administered on 01/10/21at 15:54; Start 01/09/21 at 18:30 Potassium Chloride (Klor-Con) 20 meq BID PO Last administered on 01/10/21at 21:57; Start 01/10/21 at 21:00 Ceftriaxone Sodium (Rocephin) 1 gm Q24H IVP Last administered on 01/10/21at 1 5:12; Start 01/10/21 at 13:00 Warfarin Sodium (Coumadin) 1 mg DAILY16 PO ; Start 01/11/21 at 16:00 Warfarin Sodium (Coumadin) 0.5 mg DAILY16 PO ; Start 01/11/21 at 04:49 Active Scripts Active Hydrocodone-Apap 5-325 (Hydrocodone Bit/Acetaminophen) 1 Tab Tablet 1 Tab PO PRN Q4HRS PRN Coumadin (Warfarin Sodium) 2.5 Mg Tablet 2 Mg PO DAILY16 Furosemide 40 Mg Tablet 40 Mg PO DAILY Reported Tramadol Hcl 50 Mg Tablet 1 Tab PO PRN Q6HRS PRN Carvedilol 25 Mg Tablet 6.25 Mg PO BIDWMEALS Aspirin Ec (Aspirin) 81 Mg Tablet.dr 81 Mg PO Potassium Chloride (Potassium Chloride) 20 Meq Tablet.er 20 Meq PO DAILY Lovastatin 40 Mg Tablet 40 Mg PO HS Metformin Hcl 500 Mg Tablet 500 Mg PO BIDWMEALS Tylenol (Acetaminophen) 325 Mg Tablet 1-2 Tab PO PRN Q4HRS Losartan Potassium 100 Mg Tablet 50 Mg PO DAILY Glipizide 5 Mg Tablet 5 Mg PO DAILY Amlodipine Besylate 10 Mg Tablet 10 Mg PO DAILY Vitals/I & O Vital Sign - Last 24 Hours 01/10/21 01/10/21 01/10/21 01/10/21 15:00 17:17 19:00 20:00 Temp 97.8 97.4 97.8 97.4 Pulse 102 102 83 Resp 22 18 B/P (MAP) 152/61 (91) 152/61 128/59 (82) Pulse Ox 96 96 O2 Delivery Room Air Room Air Room Air 01/10/21 01/10/21 01/10/21 01/11/21 21:58 22:58 23:00 03:00 Temp 97.6 98.0 97.6 98.0 Pulse 81 82 Resp 20 18 17 18 B/P (MAP) 132/58 (82) 123/56 (78) Pulse Ox 96 95 96 95 O2 Delivery Room Air Room Air Room Air Room Air 01/11/21 07:00 Temp 96.7 96.7 Pulse 103 Resp 22 B/P (MAP) 135/65 (88) Pulse Ox 96 O2 Delivery Room Air Justifications for Admission Other Justification ABRAHAM BOX MD Jan 11, 2021 09:16
--- NOTE | 2021-01-11 10:07 | PDOC ---
PROGRESS NOTES Date of Service DATE: 01/11/21 TIME: 10:03 Subjective Subjective discussed with daughter. bone scan with positive uptake L3 and will consult IR for a vertebroplasty. patient concurs. pain with turning in bed and has mobility deficits Objective Objective Vital Signs Date Time Temp Pulse Resp B/P (MAP) Pulse Ox O2 Delivery O2 Flow Rate FiO2 01/11/21 07:00 96.7 103 22 135/65 (88) 96 Room Air 96.7 Physical Exam Abdomen: Soft Heart: Regular rate, Normal S1, Normal S2 Extremities: No edema General: Alert HEENT: Atraumatic Lungs: Clear to auscultation Neuro: Normal speech Psych/Mental Status: Mood NL Skin: No rashes Assessment Assessment Problems no syncope per cardiology. daughter witnessed fall and is a mechanical fall 2. Low back pain even prior to the fall. 3. Acute L3 vertebral fracture, 4. Lumbar spinal stenosis. 5. Lumbar muscle spasms. 6. Diabetes mellitus type 2. 7. Hypertension. 8. Hyperlipidemia. 9. Chronic diastolic congestive heart failure. 10. Persistent atrial fibrillation, on Coumadin. disuse myopathy Medical Problems: (1) Back pain Status: Acute Plan Plan of Care consult IR for L3 vertebroplasty analgesics . iv morphine or norco prn telemetry PT and OT vitamin D Comment Review of Relevant I have reviewed the following items fabi (where applicable) has been applied. Labs Laboratory Tests Test 01/09/21 17:25 01/09/21 19:41 01/10/21 03:10 01/10/21 07:18 White Blood Count 8.6 x10^3/uL (4.0-11.0) Red Blood Count 3.83 x10^6/uL (3.50-5.40) Hemoglobin 12.7 g/dL (12.0-15.5) Hematocrit 36.8 % (36.0-47.0) Mean Corpuscular Volume 96 fL (79-100) Mean Corpuscular Hemoglobin 33 pg (25-35) Mean Corpuscular Hemoglobin Concent 35 g/dL (31-37) Red Cell Distribution Width 15.2 % (11.5-14.5) Platelet Count 279 x10^3/uL (140-400) Neutrophils (%) (Auto) 72 % (31-73) Lymphocytes (%) (Auto) 16 % (24-48) Monocytes (%) (Auto) 11 % (0-9) Eosinophils (%) (Auto) 0 % (0-3) Basophils (%) (Auto) 1 % (0-3) Neutrophils # (Auto) 6.2 x10^3/uL (1.8-7.7) Lymphocytes # (Auto) 1.4 x10^3/uL (1.0-4.8) Monocytes # (Auto) 1.0 x10^3/uL (0.0-1.1) Eosinophils # (Auto) 0.0 x10^3/uL (0.0-0.7) Basophils # (Auto) 0.0 x10^3/uL (0.0-0.2) Prothrombin Time 26.3 SEC (11.7-14.0) Prothromb Time International Ratio 2.4 (0.8-1.1) Sodium Level 139 mmol/L (136-145) Potassium Level 3.4 mmol/L (3.5-5.1) Chloride Level 100 mmol/L (98-107) Carbon Dioxide Level 28 mmol/L (21-32) Anion Gap 11 (6-14) Blood Urea Nitrogen 32 mg/dL (7-20) Creatinine 1.2 mg/dL (0.6-1.0) Estimated GFR (Cockcroft-Gault) 42.6 BUN/Creatinine Ratio 27 (6-20) Glucose Level 125 mg/dL (70-99) Calcium Level 8.3 mg/dL (8.5-10.1) Total Bilirubin 0.6 mg/dL (0.2-1.0) Aspartate Amino Transf (AST/SGOT) 13 U/L (15-37) Alanine Aminotransferase (ALT/SGPT) 17 U/L (14-59) Alkaline Phosphatase 108 U/L (46-116) Total Protein 7.9 g/dL (6.4-8.2) Albumin 3.4 g/dL (3.4-5.0) Albumin/Globulin Ratio 0.8 (1.0-1.7) Glucose (Fingerstick) 132 mg/dL (70-99) 93 mg/dL (70-99) Triglycerides Level 56 mg/dL (0-150) Cholesterol Level 139 mg/dL (0-200) LDL Cholesterol, Calculated 66 mg/dL (0-100) VLDL Cholesterol, Calculated 11 mg/dL (0-40) Non-HDL Cholesterol Calculated 77 mg/dL (0-129) HDL Cholesterol 62 mg/dL (40-60) Cholesterol/HDL Ratio 2.2 Test 01/10/21 16:41 01/10/21 21:11 01/11/21 03:54 01/11/21 07:09 Glucose (Fingerstick) 115 mg/dL (70-99) 153 mg/dL (70-99) 114 mg/dL (70-99) Prothrombin Time 23.3 SEC (11.7-14.0) Prothromb Time International Ratio 2.1 (0.8-1.1) Sodium Level 140 mmol/L (136-145) Potassium Level 4.2 mmol/L (3.5-5.1) Chloride Level 104 mmol/L (98-107) Carbon Dioxide Level 29 mmol/L (21-32) Anion Gap 7 (6-14) Blood Urea Nitrogen 26 mg/dL (7-20) Creatinine 1.1 mg/dL (0.6-1.0) Estimated GFR (Cockcroft-Gault) 47.1 Glucose Level 72 mg/dL (70-99) Calcium Level 8.9 mg/dL (8.5-10.1) Magnesium Level 1.9 mg/dL (1.8-2.4) Laboratory Tests Test 01/10/21 16:41 01/10/21 21:11 01/11/21 03:54 01/11/21 07:09 Glucose (Fingerstick) 115 mg/dL (70-99) 153 mg/dL (70-99) 114 mg/dL (70-99) Prothrombin Time 23.3 SEC (11.7-14.0) Prothromb Time International Ratio 2.1 (0.8-1.1) Sodium Level 140 mmol/L (136-145) Potassium Level 4.2 mmol/L (3.5-5.1) Chloride Level 104 mmol/L (98-107) Carbon Dioxide Level 29 mmol/L (21-32) Anion Gap 7 (6-14) Blood Urea Nitrogen 26 mg/dL (7-20) Creatinine 1.1 mg/dL (0.6-1.0) Estimated GFR (Cockcroft-Gault) 47.1 Glucose Level 72 mg/dL (70-99) Calcium Level 8.9 mg/dL (8.5-10.1) Magnesium Level 1.9 mg/dL (1.8-2.4) Medications Current Medications Ondansetron HCl (Zofran) 4 mg PRN Q8HRS PRN IV NAUSEA/VOMITING; Start 01/09/21 at 16:30; Stop 01/10/21 at 16:29; Status DC Morphine Sulfate (Morphine Sulfate) 2 mg PRN Q2HR PRN IV PAIN; Start 01/09/21 at 16:30; Stop 01/09/21 at 17:45; Status DC Morphine Sulfate (Morphine Sulfate) 1 mg PRN Q4HRS PRN IV SEVERE PAIN 7-10; Start 01/09/21 at 17:15 Amlodipine Besylate (Norvasc) 10 mg DAILY PO Last administered on 01/10/21 08:53; Start 01/10/21 at 09:00 Carvedilol (Coreg) 6.25 mg BIDWMEALS PO Last administered on 01/10/21at 17:17; Start 01/09/21 at 21:00 Cyclobenzaprine HCl (Flexeril) 5 mg PRN TID PRN PO MUSCLE SPASMS Last administered on 01/09/21at 21:50; Start 01/09/21 at 17:15 Furosemide (Lasix) 40 mg DAILY PO Last administered on 01/10/21 08:52; Start 01/10/21 at 09:00 Glipizide (Glucotrol) 2.5 mg DAILYWBKFT PO Last administered on 01/10/21at 08:00; Start 01/10/21 at 08:00 Acetaminophen/ Hydrocodone Bitart (Lortab 5/325) 1 tab QHS PO Last administered on 01/10/21 21:58; Start 01/09/21 at 21:00 Acetaminophen/ Hydrocodone Bitart (Lortab 5/325) 1 tab PRN Q4HRS PRN PO SEVERE PAIN 7-10; Start 01/09/21 at 17:15 Losartan Potassium (Cozaar) 50 mg DAILY PO Last administered on 01/10/21 08:53; Start 01/10/21 at 09:00 Atorvastatin Calcium (Lipitor) 10 mg QHS PO Last administered on 01/10/21 21:57; Start 01/09/21 at 21:00 Metformin HCl (Glucophage) 500 mg BIDWMEALS PO Last administered on 01/10/21at 17:16; Start 01/10/21 at 08:00 Polyethylene Glycol (miraLAX PACKET) 17 gm DAILY PO Last administered on 01/10/21at 08:52; Start 01/10/21 at 09:00 Potassium Chloride (Klor-Con) 20 meq DAILY PO Last administered on 01/10/21at 08:54; Start 01/10/21 at 09:00; Stop 01/10/21 at 10:21; Status DC Warfarin Sodium (Coumadin) 1.5 mg DAILY16 PO Last administered on 01/09/21at 19:30; Start 01/09/21 at 19:30; Stop 01/11/21 at 04:49; Status DC Acetaminophen (Tylenol) 650 mg PRN Q6HRS PRN PO MILD PAIN / TEMP > 100.3'F; Start 01/09/21 at 17:15 Magnesium Hydroxide (Milk Of Magnesia) 2,400 mg PRN DAILY PRN PO CONSTIPATION; Start 01/09/21 at 17:15 Warfarin Sodium (Coumadin Per Physician) 1 each PRN DAILY PRN MC SEE COMMENTS Last administered on 01/10/21at 15:54; Start 01/09/21 at 18:30 Potassium Chloride (Klor-Con) 20 meq BID PO Last administered on 01/10/21at 21:57; Start 01/10/21 at 21:00 Ceftriaxone Sodium (Rocephin) 1 gm Q24H IVP Last administered on 01/10/21at 15:12; Start 01/10/21 at 13:00 Warfarin Sodium (Coumadin) 1 mg DAILY16 PO ; Start 01/11/21 at 16:00 Warfarin Sodium (Coumadin) 0.5 mg DAILY16 PO ; Start 01/11/21 at 04:49 Active Scripts Active Hydrocodone-Apap 5-325 (Hydrocodone Bit/Acetaminophen) 1 Tab Tablet 1 Tab PO PRN Q4HRS PRN Coumadin (Warfarin Sodium) 2.5 Mg Tablet 2 Mg PO DAILY16 Furosemide 40 Mg Tablet 40 Mg PO DAILY Reported Tramadol Hcl 50 Mg Tablet 1 Tab PO PRN Q6HRS PRN Carvedilol 25 Mg Tablet 6.25 Mg PO BIDWMEALS Aspirin Ec (Aspirin) 81 Mg Tablet.dr 81 Mg PO Potassium Chloride (Potassium Chloride) 20 Meq Tablet.er 20 Meq PO DAILY Lovastatin 40 Mg Tablet 40 Mg PO HS Metformin Hcl 500 Mg Tablet 500 Mg PO BIDWMEALS Tylenol (Acetaminophen) 325 Mg Tablet 1-2 Tab PO PRN Q4HRS Losartan Potassium 100 Mg Tablet 50 Mg PO DAILY Glipizide 5 Mg Tablet 5 Mg PO DAILY Amlodipine Besylate 10 Mg Tablet 10 Mg PO DAILY Vitals/I & O Vital Sign - Last 24 Hours 01/10/21 01/10/21 01/10/21 01/10/21 15:00 17:17 19:00 20:00 Temp 97.8 97.4 97.8 97.4 Pulse 102 102 83 Resp 22 18 B/P (MAP) 152/61 (91) 152/61 128/59 (82) Pulse Ox 96 96 O2 Delivery Room Air Room Air Room Air 01/10/21 01/10/21 01/10/21 01/11/21 21:58 22:58 23:00 03:00 Temp 97.6 98.0 97.6 98.0 Pulse 81 82 Resp 20 18 17 18 B/P (MAP) 132/58 (82) 123/56 (78) Pulse Ox 96 95 96 95 O2 Delivery Room Air Room Air Room Air Room Air 01/11/21 07:00 Temp 96.7 96.7 Pulse 103 Resp 22 B/P (MAP) 135/65 (88) Pulse Ox 96 O2 Delivery Room Air Justifications for Admission Other Justification GEE FAIRBANKS MD Jan 11, 2021 10:07
[2021-01-11 11:00] VITALS: BP 170/70
[2021-01-11] MEDS: cefTRIAXone IV Push 1 GM VIAL. IVP SCH (14:04)
[2021-01-11] MEDS: amLODIPine BESYLATE 5 MG TABLET PO SCH (14:05)
[2021-01-11] MEDS: LOSARTAN POTASSIUM 50 MG TABLET. PO SCH (14:05)
[2021-01-11] MEDS: FUROSEMIDE 40 MG TABLET. PO SCH (14:05)
[2021-01-11] MEDS: POLYETHYLENE GLYCOL 3350 17 GM PACKET. PO SCH (14:06)
[2021-01-11] MEDS: POTASSIUM CHLORIDE 20 MEQ TABLET.ER. PO SCH ×2 (14:06→21:42)
[2021-01-11 15:00] VITALS: BP 179/74
[2021-01-11] MEDS ORDERED: WARFARIN 1 MG TABLET. PO SCH (16:00)
--- NOTE | 2021-01-11 16:05 | RAD ---
MRI of the lumbar spine without contrast 01/11/2021 CLINICAL HISTORY: Low back pain. Fall. L3 compression fracture. TECHNIQUE: Unenhanced T1-weighted and T2-weighted sagittal and axial and inversion recovery sagittal images of the lumbar spine were obtained. FINDINGS: Comparison is made to the patient's CT scan of the lumbar spine dated 01/09/2021. Minimal S-shaped curvature of the thoracolumbar spine is seen. Degenerative signal changes are seen i nvolving all of the disks of the lumbar spine. Degenerative signal changes are seen within the marrow surrounding these discs. The conus medullaris is normal morphology, position, and signal characteris tics. An acute compression fracture is seen involving the L3 vertebral body. This vertebral body has lost a pproximately 40 percent of its normal height. No significant retropulsion of bone fragments into the central spinal canal is seen. No additional acute compression fracture of the lumbar vertebrae is not ed. The changes of degenerative disc disease are seen throughout the lumbar spine. These consist of mild to moderate generalized disc bulges and degenerative changes involving the facet joints along with mi ld ligamentum flavum hypertrophy. These findings result in mild to moderate central spinal canal sten osis with mild bilateral neural foraminal stenosis at L3-4, moderate central spinal canal stenosis wi th mild to moderate right neural foraminal stenosis at L4-5 and mild right neural foraminal stenosis at L5-S1. IMPRESSION: An acute compression fracture is again seen involving the L3 vertebral body as discussed above. No significant retropulsion of bone fragments into the central spinal canal is seen. Electronically signed by: Carter Ceballos MD (01/11/2021 4:02 PM) [id number]
--- NOTE | 2021-01-11 17:32 | NUR ---
YVAN following for discharge planning. Pt from home with [facility]. Pt on an ADA diet and room air. Discharge plan remains home with resumption of services. Coordinated care with Aretha from [facility]. Possible weekend discharge. YVAN added pt to weekend discharge list. Addendum: 01/14/21 at 1100 by CANDY SANTORO Pt transferred to .
--- NOTE | 2021-01-11 18:35 | PDOC ---
CARDIOLOGY PROGRESS NOTE SUBJECTIVE: No new events overnight. She is planned for a kyphoplasty early next week. OBJECTIVE: Vital Signs/I&O: Vital Signs Date Time Temp Pulse Resp B/P (MAP) Pulse Ox O2 Delivery O2 Flow Rate FiO2 01/11/21 17:15 103 179/74 01/11/21 15:00 97.5 20 97 Room Air 97.5 Objective: No significant changes to exam Irregularly irregular rhythm Clear lung garcia No significant lower extremity edema Soft abdomen No focal neurologic deficits CURRENT MEDICATIONS: Lasix, amlodipine, carvedilol and warfarin. DIAGNOSTIC TESTING: No new cardiovascular testing Labs: Laboratory Tests 01/11/21 03:54 Laboratory Tests Test 01/10/21 21:11 01/11/21 03:54 01/11/21 07:09 01/11/21 10:59 Glucose (Fingerstick) 153 mg/dL (70-99) H 114 mg/dL (70-99) H 144 mg/dL (70-99) H Prothrombin Time 23.3 SEC (11.7-14.0) H Prothromb Time International Ratio 2.1 (0.8-1.1) H Sodium Level 140 mmol/L (136-145) Potassium Level 4.2 mmol/L (3.5-5.1) Chloride Level 104 mmol/L (98-107) Carbon Dioxide Level 29 mmol/L (21-32) Anion Gap 7 (6-14) Blood Urea Nitrogen 26 mg/dL (7-20) H Creatinine 1.1 mg/dL (0.6-1.0) H Estimated GFR (Cockcroft-Gault) 47.1 Glucose Level 72 mg/dL (70-99) Calcium Level 8.9 mg/dL (8.5-10.1) Test 01/11/21 16:10 01/11/21 16:34 SARS-CoV-2 Antigen (Rapid) Negative (NEGATIVE) Glucose (Fingerstick) 138 mg/dL (70-99) H ASSESSMENT: 1. Acute low back pain with plans for kyphoplasty 2. Chronic atrial fibrillation on Coumadin therapy 3. Hypertension PLAN: 1. She stable from a cardiovascular standpoint. Continue current medical therapy. Defer to primary care physician regarding discontinuation of Coumadin and IR prior to her kyphoplasty. Supportive care for now. Justicifation of Admission Dx: Justifications for Admission: Justification of Admission Dx: N/A ELIZABETH VAN MD Jan 11, 2021 18:35
[2021-01-11 19:00] VITALS: BP 144/63
[2021-01-11] MEDS: ATORVASTATIN CALCIUM 10 MG TABLET. PO SCH (21:42)
[2021-01-11] MEDS: HYDROcodone/APAP 5/325MG 1 TAB TABLET PO SCH (21:42)
[2021-01-11] MEDS: LACTOBACILLUS RHAMNOSUS GG 1 CAPSULE. PO SCH (21:42)
[2021-01-11 23:00] VITALS: BP 127/55
[2021-01-12 02:59] VITALS: BP 130/80
[2021-01-12 05:53] LABS: PROTHROMBIN TIME PATIENT 20.9 SEC (11.7-14.0)
[2021-01-12 07:12] VITALS: BP 127/58
[2021-01-12] MEDS: FUROSEMIDE 40 MG TABLET. PO SCH (08:20)
[2021-01-12] MEDS: CARVEDILOL 6.25 MG TABLET. PO SCH ×2 (08:21→17:31)
[2021-01-12] MEDS: metFORMIN 500 MG TABLET PO SCH ×2 (08:21→17:31)
[2021-01-12] MEDS: LOSARTAN POTASSIUM 50 MG TABLET. PO SCH (08:22)
[2021-01-12] MEDS: amLODIPine BESYLATE 5 MG TABLET PO SCH (08:22)
[2021-01-12] MEDS: glipiZIDE 5 MG TABLET PO SCH (08:22)
[2021-01-12] MEDS: LACTOBACILLUS RHAMNOSUS GG 1 CAPSULE. PO SCH ×2 (08:22→22:16)
[2021-01-12] MEDS: POTASSIUM CHLORIDE 20 MEQ TABLET.ER. PO SCH ×2 (08:23→22:16)
[2021-01-12] MEDS: POLYETHYLENE GLYCOL 3350 17 GM PACKET. PO SCH (08:23)
[2021-01-12] MEDS: CHOLECALCIFEROL (VITAMIN D3) 1,000 UNIT TABLET PO SCH (08:23)
--- NOTE | 2021-01-12 10:11 | PDOC ---
PROGRESS NOTES Date of Service DATE: 01/12/21 TIME: 10:07 Subjective Subjective She denies any significant back pain and not taking any medicine for pain. Objective Objective Vital Signs Date Time Temp Pulse Resp B/P (MAP) Pulse Ox O2 Delivery O2 Flow Rate FiO2 01/12/21 08:22 78 127/58 01/12/21 07:12 97.7 18 90 Room Air 97.7 Intake and Output 01/12/21 07:00 Intake Total 590 ml Output Total 0 ml Balance 590 ml Intake Oral 590 ml Output Urine Total 0 ml # Voids 5 Physical Exam Physical Exam She is alert,sitting at edge of bed and she got on to a supine position in bed without any assistance and without any pain complaint. She is anxious about falls if she tries to move by herself. I spooke to and plans for kyphoplasty on 01/14/2021. Assessment Assessment Problems Medical Problems: (1) Back pain Status: Acute Plan Plan of Care Agree with plans. Comment Review of Relevant I have reviewed the following items fabi (where applicable) has been applied. Labs Laboratory Tests Test 01/10/21 16:41 01/10/21 21:11 01/11/21 03:54 01/11/21 07:09 Glucose (Fingerstick) 115 mg/dL (70-99) 153 mg/dL (70-99) 114 mg/dL (70-99) Prothrombin Time 23.3 SEC (11.7-14.0) Prothromb Time International Ratio 2.1 (0.8-1.1) Sodium Level 140 mmol/L (136-145) Potassium Level 4.2 mmol/L (3.5-5.1) Chloride Level 104 mmol/L (98-107) Carbon Dioxide Level 29 mmol/L (21-32) Anion Gap 7 (6-14) Blood Urea Nitrogen 26 mg/dL (7-20) Creatinine 1.1 mg/dL (0.6-1.0) Estimated GFR (Cockcroft-Gault) 47.1 Glucose Level 72 mg/dL (70-99) Calcium Level 8.9 mg/dL (8.5-10.1) Magnesium Level 1.9 mg/dL (1.8-2.4) Test 01/11/21 10:59 01/11/21 16:10 01/11/21 16:34 01/11/21 21:08 Glucose (Fingerstick) 144 mg/dL (70-99) 138 mg/dL (70-99) 146 mg/dL (70-99) SARS-CoV-2 Antigen (Rapid) Negative (NEGATIVE) Test 01/12/21 04:30 01/12/21 07:02 Prothrombin Time 20.9 SEC (11.7-14.0) Prothromb Time International Ratio 1.8 (0.8-1.1) Glucose (Fingerstick) 118 mg/dL (70-99) Laboratory Tests Test 01/11/21 10:59 01/11/21 16:10 01/11/21 16:34 01/11/21 21:08 Glucose (Fingerstick) 144 mg/dL (70-99) 138 mg/dL (70-99) 146 mg/dL (70-99) SARS-CoV-2 Antigen (Rapid) Negative (NEGATIVE) Test 01/12/21 04:30 01/12/21 07:02 Prothrombin Time 20.9 SEC (11.7-14.0) Prothromb Time International Ratio 1.8 (0.8-1.1) Glucose (Fingerstick) 118 mg/dL (70-99) Medications Current Medications Ondansetron HCl (Zofran) 4 mg PRN Q8HRS PRN IV NAUSEA/VOMITING; Start 01/09/21 at 16:30; Stop 01/10/21 at 16:29; Status DC Morphine Sulfate (Morphine Sulfate) 2 mg PRN Q2HR PRN IV PAIN; Start 01/09/21 at 16:30; Stop 01/09/21 at 17:45; Status DC Morphine Sulfate (Morphine Sulfate) 1 mg PRN Q4HRS PRN IV SEVERE PAIN 7-10; St art 01/09/21 at 17:15 Amlodipine Besylate (Norvasc) 10 mg DAILY PO Last administered on 01/12/21at 08:22; Start 01/10/21 at 09:00 Carvedilol (Coreg) 6.25 mg BIDWMEALS PO Last administered on 01/12/21at 08:21; Start 01/09/21 at 21:00 Cyclobenzaprine HCl (Flexeril) 5 mg PRN TID PRN PO MUSCLE SPASMS Last administered on 01/09/21at 21:50; Start 01/09/21 at 17:15 Furosemide (Lasix) 40 mg DAILY PO Last administered on 01/12/21 08:20; Start 01/10/21 at 09:00 Glipizide (Glucotrol) 2.5 mg DAILYWBKFT PO Last administered on 01/12/21 08:22; Start 01/10/21 at 08:00 Acetaminophen/ Hydrocodone Bitart (Lortab 5/325) 1 tab QHS PO Last administered on 01/11/21 21:42; Start 01/09/21 at 21:00 Acetaminophen/ Hydrocodone Bitart (Lortab 5/325) 1 tab PRN Q4HRS PRN PO SEVERE PAIN 7-10; Start 01/09/21 at 17:15 Losartan Potassium (Cozaar) 50 mg DAILY PO Last administered on 01/12/21 08:22; Start 01/10/21 at 09:00 Atorvastatin Calcium (Lipitor) 10 mg QHS PO Last administered on 01/11/21 21:42; Start 01/09/21 at 21:00 Metformin HCl (Glucophage) 500 mg BIDWMEALS PO Last administered on 01/12/21 08:21; Start 01/10/21 at 08:00 Polyethylene Glycol (miraLAX PACKET) 17 gm DAILY PO Last administered on 01/12/21 08:23; Start 01/10/21 at 09:00 Potassium Chloride (Klor-Con) 20 meq DAILY PO Last administered on 01/10/21 08:54; Start 01/10/21 at 09:00; Stop 01/10/21 at 10:21; Status DC Warfarin Sodium (Coumadin) 1.5 mg DAILY16 PO Last administered on 01/09/21at 19:30; Start 01/09/21 at 19:30; Stop 01/11/21 at 04:49; Status DC Acetaminophen (Tylenol) 650 mg PRN Q6HRS PRN PO MILD PAIN / TEMP > 100.3'F; Start 01/09/21 at 17:15 Magnesium Hydroxide (Milk Of Magnesia) 2,400 mg PRN DAILY PRN PO CONSTIPATION; Start 01/09/21 at 17:15 Warfarin Sodium (Coumadin Per Physician) 1 each PRN DAILY PRN MC SEE COMMENTS Last administered on 4/1/21at 15:54; Start 01/09/21 at 18:30 Potassium Chloride (Klor-Con) 20 meq BID PO Last administered on 01/12/21at 08:23; Start 01/10/21 at 21:00 Ceftriaxone Sodium (Rocephin) 1 gm Q24H IVP Last administered on 01/11/21at 14:04; Start 01/10/21 at 13:00 Warfarin Sodium (Coumadin) 1 mg DAILY16 PO ; Start 01/11/21 at 16:00; Stop 01/11/21 at 10:15; Status DC Warfarin Sodium (Coumadin) 0.5 mg DAILY16 PO ; Start 01/11/21 at 04:49; Stop 01/11/21 at 10:15; Status DC Vitamin D (Vitamin D3) 2,000 unit DAILY PO Last administered on 01/12/21at 08:23; Start 01/12/21 at 09:00 Lactobacillus Rhamnosus (Culturelle) 1 cap BID PO Last administered on 01/12/21at 08:22; Start 01/11/21 at 21:00 Active Scripts Active Hydrocodone-Apap 5-325 (Hydrocodone Bit/Acetaminophen) 1 Tab Tablet 1 Tab PO PRN Q4HRS PRN Coumadin (Warfarin Sodium) 2.5 Mg Tablet 2 Mg PO DAILY16 Furosemide 40 Mg Tablet 40 Mg PO DAILY Reported Tramadol Hcl 50 Mg Tablet 1 Tab PO PRN Q6HRS PRN Carvedilol 25 Mg Tablet 6.25 Mg PO BIDWMEALS Aspirin Ec (Aspirin) 81 Mg Tablet.dr 81 Mg PO Potassium Chloride (Potassium Chloride) 20 Meq Tablet.er 20 Meq PO DAILY Lovastatin 40 Mg Tablet 40 Mg PO HS Metformin Hcl 500 Mg Tablet 500 Mg PO BIDWMEALS Tylenol (Acetaminophen) 325 Mg Tablet 1-2 Tab PO PRN Q4HRS Losartan Potassium 100 Mg Tablet 50 Mg PO DAILY Glipizide 5 Mg Tablet 5 Mg PO DAILY Amlodipine Besylate 10 Mg Tablet 10 Mg PO DAILY Vitals/I & O Vital Sign - Last 24 Hours 01/11/21 01/11/21 01/11/21 01/11/21 11:00 14:05 14:05 15:00 Temp 97.4 97.5 97.4 97.5 Pulse 97 97 97 103 Resp 20 20 B/P (MAP) 170/70 (103) 170/70 170/70 179/74 (109) Pulse Ox 96 97 O2 Delivery Room Air Room Air 01/11/21 01/11/21 01/11/21 01/11/21 17:15 19:00 19:30 21:42 Temp 97.9 97.9 Pulse 103 90 Resp 18 20 B/P (MAP) 179/74 144/63 (90) Pulse Ox 99 O2 Delivery Room Air Room Air Room Air 01/11/21 01/11/21 01/12/21 01/12/21 22:42 23:00 02:59 07:12 Temp 98.9 98.2 97.7 98.9 98.2 97.7 Pulse 92 90 78 Resp 20 18 18 18 B/P (MAP) 127/55 (79) 130/80 (97) 127/58 (81) Pulse Ox 96 100 90 O2 Delivery Room Air Room Air Room Air Room Air 01/12/21 01/12/21 01/12/21 08:21 08:22 08:22 Pulse 78 78 78 B/P (MAP) 127/58 127/58 127/58 Intake and Output 01/11/21 01/11/21 01/12/21 15:00 23:00 07:00 Intake Total 340 ml 250 ml Output Total 0 ml Balance 340 ml 250 ml Justifications for Admission Other Justification ABRAHAM BOX MD Jan 12, 2021 10:11
[2021-01-12 10:38] VITALS: BP 135/73
--- NOTE | 2021-01-12 11:06 | PDOC ---
PROGRESS NOTES Date of Service DATE: 01/12/21 TIME: 10:55 Subjective Subjective MRI lumbar spine confirms acute L# lumbar vertebral fracture with loss of 40% of height. has spinal stenosis. inr 1.8. blood sugars are okay. still with low back pain with turning in bed and getting out of bed. spoke with patients walker sagastume who wants home health after dismissal . she needs to be in hospital still due to severe low back pain with change in position and transferring and walking Objective Objective Vital Signs Date Time Temp Pulse Resp B/P (MAP) Pulse Ox O2 Delivery O2 Flow Rate FiO2 01/12/21 10:38 97.5 76 18 135/73 (93) 96 Room Air 97.5 Intake and Output 01/12/21 07:00 Intake Total 590 ml Output Total 0 ml Balance 590 ml Intake Oral 590 ml Output Urine Total 0 ml # Voids 5 Physical Exam Abdomen: Soft Heart: Regular rate, Normal S1, Normal S2 Extremities: No edema General: Alert HEENT: Atraumatic Lungs: Clear to auscultation Neck: Supple Neuro: Normal speech Psych/Mental Status: Mental status NL Skin: No rashes Assessment Assessment Problems no syncope per cardiology. daughter witnessed fall and is a mechanical fall 2. Low back pain even prior to the fall. 3. Acute L3 vertebral fracture, 4. Lumbar spinal stenosis. 5. Lumbar muscle spasms. 6. Diabetes mellitus type 2. 7. Hypertension. 8. Hyperlipidemia. 9. Chronic diastolic congestive heart failure. 10. Persistent atrial fibrillation, on Coumadin. disuse myopathy Medical Problems: (1) Back pain Status: Acute Plan Plan of Care kyphoplasty thursday analgesics prn including iv prn morphine hold coumadin PT and OT Comment Review of Relevant I have reviewed the following items fabi (where applicable) has been applied. Labs Laboratory Tests Test 01/10/21 16:41 01/10/21 21:11 01/11/21 03:54 01/11/21 07:09 Glucose (Fingerstick) 115 mg/dL (70-99) 153 mg/dL (70-99) 114 mg/dL (70-99) Prothrombin Time 23.3 SEC (11.7-14.0) Prothromb Time International Ratio 2.1 (0.8-1.1) Sodium Level 140 mmol/L (136-145) Potassium Level 4.2 mmol/L (3.5-5.1) Chloride Level 104 mmol/L (98-107) Carbon Dioxide Level 29 mmol/L (21-32) Anion Gap 7 (6-14) Blood Urea Nitrogen 26 mg/dL (7-20) Creatinine 1.1 mg/dL (0.6-1.0) Estimated GFR (Cockcroft-Gault) 47.1 Glucose Level 72 mg/dL (70-99) Calcium Level 8.9 mg/dL (8.5-10.1) Magnesium Level 1.9 mg/dL (1.8-2.4) Test 01/11/21 10:59 01/11/21 16:10 01/11/21 16:34 01/11/21 21:08 Glucose (Fingerstick) 144 mg/dL (70-99) 138 mg/dL (70-99) 146 mg/dL (70-99) SARS-CoV-2 Antigen (Rapid) Negative (NEGATIVE) Test 01/12/21 04:30 01/12/21 07:02 Prothrombin Time 20.9 SEC (11.7-14.0) Prothromb Time International Ratio 1.8 (0.8-1.1) Glucose (Fingerstick) 118 mg/dL (70-99) Laboratory Tests Test 01/11/21 10:59 01/11/21 16:10 01/11/21 16:34 01/11/21 21:08 Glucose (Fingerstick) 144 mg/dL (70-99) 138 mg/dL (70-99) 146 mg/dL (70-99) SARS-CoV-2 Antigen (Rapid) Negative (NEGATIVE) Test 01/12/21 04:30 01/12/21 07:02 Prothrombin Time 20.9 SEC (11.7-14.0) Prothromb Time International Ratio 1.8 (0.8-1.1) Glucose (Fingerstick) 118 mg/dL (70-99) Medications Current Medications Ondansetron HCl (Zofran) 4 mg PRN Q8HRS PRN IV NAUSEA/VOMITING; Start 01/09/21 at 16:30; Stop 01/10/21 at 16:29; Status DC Morphine Sulfate (Morphine Sulfate) 2 mg PRN Q2HR PRN IV PAIN; Start 01/09/21 at 16:30; Stop 01/09/21 at 17:45; Status DC Morphine Sulfate (Morphine Sulfate) 1 mg PRN Q4HRS PRN IV SEVERE PAIN 7-10; Start 01/09/21 at 17:15 Amlodipine Besylate (Norvasc) 10 mg DAILY PO Last administered on 01/12/21 08:22; Start 01/10/21 at 09:00 Carvedilol (Coreg) 6.25 mg BIDWMEALS PO Last administered on 01/12/21 08:21; Start 01/09/21 at 21:00 Cyclobenzaprine HCl (Flexeril) 5 mg PRN TID PRN PO MUSCLE SPASMS Last administered on 01/09/21 21:50; Start 01/09/21 at 17:15 Furosemide (Lasix) 40 mg DAILY PO Last administered on 01/12/21 08:20; Start 01/10/21 at 09:00 Glipizide (Glucotrol) 2.5 mg DAILYWBKFT PO Last administered on 01/12/21 08:22; Start 01/10/21 at 08:00 Acetaminophen/ Hydrocodone Bitart (Lortab 5/325) 1 tab QHS PO Last administered on 01/11/21 21:42; Start 01/09/21 at 21:00 Acetaminophen/ Hydrocodone Bitart (Lortab 5/325) 1 tab PRN Q4HRS PRN PO SEVERE PAIN 7-10; Start 01/09/21 at 17:15 Losartan Potassium (Cozaar) 50 mg DAILY PO Last administered on 01/12/21 08:22; Start 01/10/21 at 09:00 Atorvastatin Calcium (Lipitor) 10 mg QHS PO Last administered on 01/11/21at 21:42; Start 01/09/21 at 21:00 Metformin HCl (Glucophage) 500 mg BIDWMEALS PO Last administered on 01/12/21 08:21; Start 01/10/21 at 08:00 Polyethylene Glycol (miraLAX PACKET) 17 gm DAILY PO Last administered on 01/12/21 08:23; Start 01/10/21 at 09:00 Potassium Chloride (Klor-Con) 20 meq DAILY PO Last administered on 01/10/21at 08:54; Start 01/10/21 at 09:00; Stop 01/10/21 at 10:21; Status DC Warfarin Sodium (Coumadin) 1.5 mg DAILY16 PO Last administered on 01/09/21at 19:30; Start 01/09/21 at 19:30; Stop 01/11/21 at 04:49; Status DC Acetaminophen (Tylenol) 650 mg PRN Q6HRS PRN PO MILD PAIN / TEMP > 100.3'F; Start 01/09/21 at 17:15 Magnesium Hydroxide (Milk Of Magnesia) 2,400 mg PRN DAILY PRN PO CONSTIPATION; Start 01/09/21 at 17:15 Warfarin Sodium (Coumadin Per Physician) 1 each PRN DAILY PRN MC SEE COMMENTS Last administered on 01/10/21at 15:54; Start 01/09/21 at 18:30 Potassium Chloride (Klor-Con) 20 meq BID PO Last administered on 01/12/21at 08:23; Start 01/10/21 at 21:00 Ceftriaxone Sodium (Rocephin) 1 gm Q24H IVP Last administered on 01/11/21at 14:04; Start 01/10/21 at 13:00 Warfarin Sodium (Coumadin) 1 mg DAILY16 PO ; Start 01/11/21 at 16:00; Stop 01/11/21 at 10:15; Status DC Warfarin Sodium (Coumadin) 0.5 mg DAILY16 PO ; Start 01/11/21 at 04:49; Stop 01/11/21 at 10:15; Status DC Vitamin D (Vitamin D3) 2,000 unit DAILY PO Last administered on 01/12/21at 08:23; Start 01/12/21 at 09:00 Lactobacillus Rhamnosus (Culturelle) 1 cap BID PO Last administered on 01/12/21at 08:22; Start 01/11/21 at 21:00 Active Scripts Active Hydrocodone-Apap 5-325 (Hydrocodone Bit/Acetaminophen) 1 Tab Tablet 1 Tab PO PRN Q4HRS PRN Coumadin (Warfarin Sodium) 2.5 Mg Tablet 2 Mg PO DAILY16 Furosemide 40 Mg Tablet 40 Mg PO DAILY Reported Tramadol Hcl 50 Mg Tablet 1 Tab PO PRN Q6HRS PRN Carvedilol 25 Mg Tablet 6.25 Mg PO BIDWMEALS Aspirin Ec (Aspirin) 81 Mg Tablet.dr 81 Mg PO Potassium Chloride (Potassium Chloride) 20 Meq Tablet.er 20 Meq PO DAILY Lovastatin 40 Mg Tablet 40 Mg PO HS Metformin Hcl 500 Mg Tablet 500 Mg PO BIDWMEALS Tylenol (Acetaminophen) 325 Mg Tablet 1-2 Tab PO PRN Q4HRS Losartan Potassium 100 Mg Tablet 50 Mg PO DAILY Glipizide 5 Mg Tablet 5 Mg PO DAILY Amlodipine Besylate 10 Mg Tablet 10 Mg PO DAILY Vitals/I & O Vital Sign - Last 24 Hours 01/11/21 01/11/21 01/11/21 01/11/21 11:00 14:05 14:05 15:00 Temp 97.4 97.5 97.4 97.5 Pulse 97 97 97 103 Resp 20 20 B/P (MAP) 170/70 (103) 170/70 170/70 179/74 (109) Pulse Ox 96 97 O2 Delivery Room Air Room Air 01/11/21 01/11/21 01/11/21 01/11/21 17:15 19:00 19:30 21:42 Temp 97.9 97.9 Pulse 103 90 Resp 18 20 B/P (MAP) 179/74 144/63 (90) Pulse Ox 99 O2 Delivery Room Air Room Air Room Air 01/11/21 01/11/21 01/12/21 01/12/21 22:42 23:00 02:59 07:12 Temp 98.9 98.2 97.7 98.9 98.2 97.7 Pulse 92 90 78 Resp 20 18 18 18 B/P (MAP) 127/55 (79) 130/80 (97) 127/58 (81) Pulse Ox 96 100 90 O2 Delivery Room Air Room Air Room Air Room Air 01/12/21 01/12/21 01/12/21 01/12/21 08:21 08:22 08:22 10:38 Temp 97.5 97.5 Pulse 78 78 78 76 Resp 18 B/P (MAP) 127/58 127/58 127/58 135/73 (93) Pulse Ox 96 O2 Delivery Room Air Intake and Output 01/11/21 01/11/21 01/12/21 15:00 23:00 07:00 Intake Total 340 ml 250 ml Output Total 0 ml Balance 340 ml 250 ml Justifications for Admission Other Justification GEE FAIRBANKS MD Jan 12, 2021 11:05
[2021-01-12] MEDS: cefTRIAXone IV Push 1 GM VIAL. IVP SCH (12:46)
[2021-01-12 14:34] VITALS: BP 105/55
[2021-01-12 19:00] VITALS: BP 100/80
[2021-01-12] MEDS: ATORVASTATIN CALCIUM 10 MG TABLET. PO SCH (22:16)
[2021-01-12] MEDS: HYDROcodone/APAP 5/325MG 1 TAB TABLET PO SCH (22:16)
[2021-01-12 23:00] VITALS: BP 158/60
[2021-01-13 03:00] VITALS: BP 123/57
[2021-01-13 07:15] VITALS: BP 163/70
[2021-01-13 07:48] LABS: BASO % 0 % (0-3); EOS % 1 % (0-3); HEMATOCRIT 37.1 % (36.0-47.0); HEMOGLOBIN 12.5 g/dL (12.0-15.5); LYMPH # 1.5 x10^3/uL (1.0-4.8); LYMPH % 33 % (24-48); MEAN CORPUSCULAR HEMOGLOBIN 33 pg (25-35); MEAN CORPUSCULAR HGB CONC 34 g/dL (31-37); MEAN CORPUSCULAR VOLUME 96 fL (79-100); MONO # 0.8 x10^3/uL (0.0-1.1); MONO % 18 % (0-9); NEUT # 2.1 x10^3/uL (1.8-7.7); NEUT % 48 % (31-73); PLATELET COUNT 228 x10^3/uL (140-400); RED BLOOD COUNT 3.86 x10^6/uL (3.50-5.40); RED CELL DISTRIBUTION WIDTH 14.9 % (11.5-14.5); WHITE BLOOD COUNT 4.4 x10^3/uL (4.0-11.0)
[2021-01-13 07:55] LABS: CREATININE 1.1 mg/dL (0.6-1.0); GFR 47.1; POTASSIUM 4.6 mmol/L (3.5-5.1)
[2021-01-13 07:59] LABS: PROTHROMBIN TIME PATIENT 19.3 SEC (11.7-14.0)
[2021-01-13] MEDS: metFORMIN 500 MG TABLET PO SCH ×2 (09:51→16:24)
[2021-01-13] MEDS: FUROSEMIDE 40 MG TABLET. PO SCH (09:51)
[2021-01-13] MEDS: LACTOBACILLUS RHAMNOSUS GG 1 CAPSULE. PO SCH ×2 (09:51→21:32)
[2021-01-13] MEDS: CHOLECALCIFEROL (VITAMIN D3) 1,000 UNIT TABLET PO SCH (09:51)
[2021-01-13] MEDS: CARVEDILOL 6.25 MG TABLET. PO SCH ×2 (09:51→16:24)
[2021-01-13] MEDS: POLYETHYLENE GLYCOL 3350 17 GM PACKET. PO SCH (09:52)
[2021-01-13] MEDS: POTASSIUM CHLORIDE 20 MEQ TABLET.ER. PO SCH (09:52)
[2021-01-13] MEDS: glipiZIDE 5 MG TABLET PO SCH (09:52)
[2021-01-13] MEDS: amLODIPine BESYLATE 5 MG TABLET PO SCH (09:53)
[2021-01-13] MEDS: LOSARTAN POTASSIUM 50 MG TABLET. PO SCH (09:53)
[2021-01-13 10:41] VITALS: BP 135/60
--- NOTE | 2021-01-13 10:54 | PDOC ---
PROGRESS NOTES Date of Service DATE: 01/13/21 TIME: 10:51 Subjective Subjective notes back pain with changing positions and standing up and turning in bed. inr 1.7. lab reviewed. Objective Objective Vital Signs Date Time Temp Pulse Resp B/P (MAP) Pulse Ox O2 Delivery O2 Flow Rate FiO2 01/13/21 10:41 97.7 96 18 135/60 (85) 97 Room Air 97.7 Intake and Output 01/13/21 06:59 # Voids 2 Physical Exam Abdomen: Soft Heart: Regular rate, Normal S1, Normal S2 Extremities: No edema General: Alert HEENT: Atraumatic Lungs: Clear to auscultation Neuro: Normal speech Psych/Mental Status: Mental status NL Skin: No rashes Assessment Assessment Problemsno syncope per cardiology. daughter witnessed fall and is a mechanical fall 2. Low back pain even prior to the fall. 3. Acute L3 vertebral fracture, 4. Lumbar spinal stenosis. 5. Lumbar muscle spasms. 6. Diabetes mellitus type 2. 7. Hypertension. 8. Hyperlipidemia. 9. Chronic diastolic congestive heart failure. 10. Persistent atrial fibrillation, on Coumadin. 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 Labs Laboratory Tests Test 01/11/21 10:59 01/11/21 16:10 01/11/21 16:34 01/11/21 21:08 Glucose (Fingerstick) 144 mg/dL (70-99) 138 mg/dL (70-99) 146 mg/dL (70-99) Coronavirus (PCR) Not detected (Not Detected) SARS-CoV-2 Antigen (Rapid) Negative (NEGATIVE) Test 01/12/21 04:30 01/12/21 07:02 01/12/21 11:01 01/12/21 16:10 Prothrombin Time 20.9 SEC (11.7-14.0) Prothromb Time International Ratio 1.8 (0.8-1.1) Glucose (Fingerstick) 118 mg/dL (70-99) 194 mg/dL (70-99) 126 mg/dL (70-99) Test 01/12/21 20:40 01/13/21 06:15 01/13/21 07:02 Glucose (Fingerstick) 192 mg/dL (70-99) 95 mg/dL (70-99) White Blood Count 4.4 x10^3/uL (4.0-11.0) Red Blood Count 3.86 x10^6/uL (3.50-5.40) Hemoglobin 12.5 g/dL (12.0-15.5) Hematocrit 37.1 % (36.0-47.0) Mean Corpuscular Volume 96 fL (79-100) Mean Corpuscular Hemoglobin 33 pg (25-35) Mean Corpuscular Hemoglobin Concent 34 g/dL (31-37) Red Cell Distribution Width 14.9 % (11.5-14.5) Platelet Count 228 x10^3/uL (140-400) Neutrophils (%) (Auto) 48 % (31-73) Lymphocytes (%) (Auto) 33 % (24-48) Monocytes (%) (Auto) 18 % (0-9) Eosinophils (%) (Auto) 1 % (0-3) Basophils (%) (Auto) 0 % (0-3) Neutrophils # (Auto) 2.1 x10^3/uL (1.8-7.7) Lymphocytes # (Auto) 1.5 x10^3/uL (1.0-4.8) Monocytes # (Auto) 0.8 x10^3/uL (0.0-1.1) Eosinophils # (Auto) 0.0 x10^3/uL (0.0-0.7) Basophils # (Auto) 0.0 x10^3/uL (0.0-0.2) Prothrombin Time 19.3 SEC (11.7-14.0) Prothromb Time International Ratio 1.7 (0.8-1.1) Sodium Level 141 mmol/L (136-145) Potassium Level 4.6 mmol/L (3.5-5.1) Chloride Level 105 mmol/L (98-107) Carbon Dioxide Level 27 mmol/L (21-32) Anion Gap 9 (6-14) Blood Urea Nitrogen 28 mg/dL (7-20) Creatinine 1.1 mg/dL (0.6-1.0) Estimated GFR (Cockcroft-Gault) 47.1 Glucose Level 89 mg/dL (70-99) Calcium Level 9.0 mg/dL (8.5-10.1) Laboratory Tests Test 01/12/21 11:01 01/12/21 16:10 01/12/21 20:40 01/13/21 06:15 Glucose (Fingerstick) 194 mg/dL (70-99) 126 mg/dL (70-99) 192 mg/dL (70-99) White Blood Count 4.4 x10^3/uL (4.0-11.0) Red Blood Count 3.86 x10^6/uL (3.50-5.40) Hemoglobin 12.5 g/dL (12.0-15.5) Hematocrit 37.1 % (36.0-47.0) Mean Corpuscular Volume 96 fL (79-100) Mean Corpuscular Hemoglobin 33 pg (25-35) Mean Corpuscular Hemoglobin Concent 34 g/dL (31-37) Red Cell Distribution Width 14.9 % (11.5-14.5) Platelet Count 228 x10^3/uL (140-400) Neutrophils (%) (Auto) 48 % (31-73) Lymphocytes (%) (Auto) 33 % (24-48) Monocytes (%) (Auto) 18 % (0-9) Eosinophils (%) (Auto) 1 % (0-3) Basophils (%) (Auto) 0 % (0-3) Neutrophils # (Auto) 2.1 x10^3/uL (1.8-7.7) Lymphocytes # (Auto) 1.5 x10^3/uL (1.0-4.8) Monocytes # (Auto) 0.8 x10^3/uL (0.0-1.1) Eosinophils # (Auto) 0.0 x10^3/uL (0.0-0.7) Basophils # (Auto) 0.0 x10^3/uL (0.0-0.2) Prothrombin Time 19.3 SEC (11.7-14.0) Prothromb Time International Ratio 1.7 (0.8-1.1) Sodium Level 141 mmol/L (136-145) Potassium Level 4.6 mmol/L (3.5-5.1) Chloride Level 105 mmol/L (98-107) Carbon Dioxide Level 27 mmol/L (21-32) Anion Gap 9 (6-14) Blood Urea Nitrogen 28 mg/dL (7-20) Creatinine 1.1 mg/dL (0.6-1.0) Estimated GFR (Cockcroft-Gault) 47.1 Glucose Level 89 mg/dL (70-99) Calcium Level 9.0 mg/dL (8.5-10.1) Test 01/13/21 07:02 Glucose (Fingerstick) 95 mg/dL (70-99) Medications Current Medications Ondansetron HCl (Zofran) 4 mg PRN Q8HRS PRN IV NAUSEA/VOMITING; Start 01/09/21 at 16:30; Stop 01/10/21 at 16:29; Status DC Morphine Sulfate (Morphine Sulfate) 2 mg PRN Q2HR PRN IV PAIN; Start 01/09/21 at 16:30; Stop 01/09/21 at 17:45; Status DC Morphine Sulfate (Morphine Sulfate) 1 mg PRN Q4HRS PRN IV SEVERE PAIN 7-10; Start 01/09/21 at 17:15 Amlodipine Besylate (Norvasc) 10 mg DAILY PO Last administered on 01/13/21 09:53; Start 01/10/21 at 09:00 Carvedilol (Coreg) 6.25 mg BIDWMEALS PO Last administered on 01/13/21 09:51; Start 01/09/21 at 21:00 Cyclobenzaprine HCl (Flexeril) 5 mg PRN TID PRN PO MUSCLE SPASMS Last administered on 01/09/21at 21:50; Start 01/09/21 at 17:15 Furosemide (Lasix) 40 mg DAILY PO Last administered on 01/13/21 09:51; Start 01/10/21 at 09:00 Glipizide (Glucotrol) 2.5 mg DAILYWBKFT PO Last administered on 01/13/21 09:52; Start 01/10/21 at 08:00 Acetaminophen/ Hydrocodone Bitart (Lortab 5/325) 1 tab QHS PO Last administered on 01/12/21at 22:16; Start 01/09/21 at 21:00 Acetaminophen/ Hydrocodone Bitart (Lortab 5/325) 1 tab PRN Q4HRS PRN PO SEVERE PAIN 7-10; Start 01/09/21 at 17:15 Losartan Potassium (Cozaar) 50 mg DAILY PO Last administered on 01/13/21at 09:53; Start 01/10/21 at 09:00 Atorvastatin Calcium (Lipitor) 10 mg QHS PO Last administered on 01/12/21at 22:16; Start 01/09/21 at 21:00 Metformin HCl (Glucophage) 500 mg BIDWMEALS PO Last administered on 01/13/21 09:51; Start 01/10/21 at 08:00 Polyethylene Glycol (miraLAX PACKET) 17 gm DAILY PO Last administered on 01/13/21 09:52; Start 01/10/21 at 09:00 Potassium Chloride (Klor-Con) 20 meq DAILY PO Last administered on 01/10/21at 08:54; Start 01/10/21 at 09:00; Stop 01/10/21 at 10:21; Status DC Warfarin Sodium (Coumadin) 1.5 mg DAILY16 PO Last administered on 01/09/21at 19:30; Start 01/09/21 at 19:30; Stop 01/11/21 at 04:49; Status DC Acetaminophen (Tylenol) 650 mg PRN Q6HRS PRN PO MILD PAIN / TEMP > 100.3'F; Start 01/09/21 at 17:15 Magnesium Hydroxide (Milk Of Magnesia) 2,400 mg PRN DAILY PRN PO CONSTIPATION; Start 01/09/21 at 17:15 Warfarin Sodium (Coumadin Per Physician) 1 each PRN DAILY PRN MC SEE COMMENTS Last administered on 01/12/21at 11:24; Start 01/09/21 at 18:30 Potassium Chloride (Klor-Con) 20 meq BID PO Last administered on 01/13/21 09:52; Start 01/10/21 at 21:00; Stop 01/13/21 at 10:45; Status DC Ceftriaxone Sodium (Rocephin) 1 gm Q24H IVP Last administered on 01/12/21at 12:46; Start 01/10/21 at 13:00 Warfarin Sodium (Coumadin) 1 mg DAILY16 PO ; Start 01/11/21 at 16:00; Stop 01/11/21 at 10:15; Status DC Warfarin Sodium (Coumadin) 0.5 mg DAILY16 PO ; Start 01/11/21 at 04:49; Stop 01/11/21 at 10:15; Status DC Vitamin D (Vitamin D3) 2,000 unit DAILY PO Last administered on 01/13/21at 09:51; Start 01/12/21 at 09:00 Lactobacillus Rhamnosus (Culturelle) 1 cap BID PO Last administered on 01/13/21at 09:51; Start 01/11/21 at 21:00 Potassium Chloride (Klor-Con) 20 meq DAILY PO ; Start 01/14/21 at 09:00 Active Scripts Active Hydrocodone-Apap 5-325 (Hydrocodone Bit/Acetaminophen) 1 Tab Tablet 1 Tab PO PRN Q4HRS PRN Coumadin (Warfarin Sodium) 2.5 Mg Tablet 2 Mg PO DAILY16 Furosemide 40 Mg Tablet 40 Mg PO DAILY Reported Tramadol Hcl 50 Mg Tablet 1 Tab PO PRN Q6HRS PRN Carvedilol 25 Mg Tablet 6.25 Mg PO BIDWMEALS Aspirin Ec (Aspirin) 81 Mg Tablet.dr 81 Mg PO Potassium Chloride (Potassium Chloride) 20 Meq Tablet.er 20 Meq PO DAILY Lovastatin 40 Mg Tablet 40 Mg PO HS Metformin Hcl 500 Mg Tablet 500 Mg PO BIDWMEALS Tylenol (Acetaminophen) 325 Mg Tablet 1-2 Tab PO PRN Q4HRS Losartan Potassium 100 Mg Tablet 50 Mg PO DAILY Glipizide 5 Mg Tablet 5 Mg PO DAILY Amlodipine Besylate 10 Mg Tablet 10 Mg PO DAILY Vitals/I & O Vital Sign - Last 24 Hours 01/12/21 01/12/21 01/12/21 01/12/21 14:34 17:31 19:00 20:00 Temp 97.9 98.4 97.9 98.4 Pulse 89 89 114 Resp 18 18 B/P (MAP) 105/55 (72) 105/55 100/80 (87) Pulse Ox 95 96 O2 Delivery Room Air Room Air Room Air 01/12/21 01/12/21 01/13/21 01/13/21 22:16 23:00 03:00 07:15 Temp 97.9 98.6 97.7 97.9 98.6 97.7 Pulse 83 85 89 Resp 20 18 18 18 B/P (MAP) 158/60 (92) 123/57 (79) 163/70 (101) Pulse Ox 95 96 97 O2 Delivery Room Air Room Air Room Air Room Air 01/13/21 01/13/21 01/13/21 01/13/21 09:51 09:53 09:53 10:41 Temp 97.7 97.7 Pulse 89 89 89 96 Resp 18 B/P (MAP) 163/70 163/70 163/70 135/60 (85) Pulse Ox 97 O2 Delivery Room Air Justifications for Admission Other Justification GEE FAIRBANKS MD Jan 13, 2021 10:54
[2021-01-13] MEDS ORDERED: [UNRECOGNIZED DRUG - CODE] PO (11:05)
[2021-01-13] MEDS ORDERED: WARF1TAB69 PO (11:05)
[2021-01-13] MEDS ORDERED: GLIP5TAB10 PO (11:05)
[2021-01-13] MEDS ORDERED: CYCL10TA2 PO (11:05)
[2021-01-13] MEDS ORDERED: HYDR-2761 PO (11:05)
--- NOTE | 2021-01-13 11:08 | SNU/HH DC ---
DISCHARGE WITH HOME HEALTH DISCHARGE INFORMATION: Discharge Date: Jan 14, 2021 Final Diagnosis: Problems Medical Problems: (1) Back pain Status: Acute Condition on Discharge: Stable CODE STATUS: Code Status: DNR/DNI HOME HEALTH: Face to Face: I certify this patient is under my care and that I, or a nurse practitioner or physician's anatomic pathology assistant working with me, had a face to face encounter that meets the physician face to face encounter requirements with this patient on [01/13/21]. RN For Eval/Treatment: Yes Physical Therapy For: Evalulation/Treatment Occupational Therapy For: Evaluation/Treatment Pt Meets Homebound Status: Limited distance walking POST DISCHARGE ORDERS: Activity Instructions for Disc: Activity as tolerated Weight Bearing Status after Di: As tolerated DIET AFTER DISCHARGE: ADA CHECKS AFTER DISCHARGE: Checks after discharge: Check blood press - daily, Check blood sugar, ac/hs, Check your Temp as needed, Weigh Yourself Daily FOLLOW-UP: PCP to follow Home Health: dr. fairbanks Follow up with: dr. fairbanks next week Warfarin Follow UP: 01/21/21 TREATMENT/EQUIPMENT ORDERS: Adaptive Equipment Issued: None CERTIFICATION STATEMENT: Certification Statement: Certification Statement: Based on the above finding, I certify that this patient is confined to the home and needs intermittent group home care, physical therapy and/or speech therapy, or continues to need occupational therapy.~ This patient is under my care, and I have initiated the establishment of the plan of care.~ This patient will be followed by myself or a community physician who will periodically review the plan of care. Home Meds Active Scripts Hydrocodone Bit/Acetaminophen (HYDROCODONE-APAP 5-325 ) 1 Tab Tablet, 1 TAB PO QHS for lumbar vertebral fracture, #30 TAB Prov:GEE FAIRBANKS MD 01/13/21 Warfarin Sodium (WARFARIN SODIUM) 1 Mg Tablet, 1.5 MG PO DAILY for atrial fibrillation, #30 TAB Prov:GEE FAIRBANKS MD 01/13/21 Cyclobenzaprine Hcl (CYCLOBENZAPRINE HCL) 10 Mg Tablet, 5 MG PO PRN TID PRN for MUSCLE SPASMS, #30 TAB Prov:GEE FAIRBANKS MD 01/13/21 Cholecalciferol (Vitamin D3) (Vitamin D3) 25 Mcg Tablet, 2000 UNIT PO DAILY for osteoporosis, #30 TAB Prov:GEE FAIRBANKS MD 01/13/21 Glipizide (GLIPIZIDE) 5 Mg Tablet, 2.5 MG PO DAILYWBKFT for diabetes, #30 TAB Prov:GEE FAIRBANKS MD 01/13/21 Furosemide (FUROSEMIDE) 40 Mg Tablet, 40 MG PO DAILY, #30 MG Prov:GEE FAIRBANKS MD 02/06/17 Reported Medications Carvedilol (CARVEDILOL) 25 Mg Tablet, 6.25 MG PO BIDWMEALS for CARDIAC, TAB 09/23/19 Aspirin (ASPIRIN EC) 81 Mg Tablet.dr, 81 MG PO, TAB.SR 11/21/17 Potassium Chloride (POTASSIUM CHLORIDE ) 20 Meq Tablet.er, 20 MEQ PO DAILY, TAB.SR 11/21/17 Lovastatin (LOVASTATIN) 40 Mg Tablet, 40 MG PO HS, TAB 11/21/17 Metformin Hcl (METFORMIN HCL) 500 Mg Tablet, 500 MG PO BIDWMEALS for ANTI- DIABETIC, TAB 0 Refills 11/21/17 Acetaminophen (TYLENOL) 325 Mg Tablet, 1-2 TAB PO PRN Q4HRS for PAIN, #30 TAB 02/03/17 Losartan Potassium (LOSARTAN POTASSIUM) 100 Mg Tablet, 50 MG PO DAILY for htn, TAB 02/03/17 Amlodipine Besylate (AMLODIPINE BESYLATE) 10 Mg Tablet, 10 MG PO DAILY, TAB 02/03/17 Discontinued Reported Medications Tramadol Hcl (TRAMADOL HCL) 50 Mg Tablet, 1 TAB PO PRN Q6HRS PRN for moderate pain 01/10/21 Glipizide (GLIPIZIDE) 5 Mg Tablet, 5 MG PO DAILY, TAB 02/03/17 Discontinued Scripts Hydrocodone Bit/Acetaminophen (HYDROCODONE-APAP 5-325 ) 1 Tab Tablet, 1 TAB P O PRN Q4HRS PRN for severe pain, #30 TAB Prov:GEE FAIRBANKS MD 09/24/19 Warfarin Sodium (COUMADIN) 2.5 Mg Tablet, 2 MG PO DAILY16 for atrial fibrillation, #30 TAB Prov:GEE FAIRBANKS MD 09/24/19 GEE FAIRBANKS MD Jan 13, 2021 11:08
--- NOTE | 2021-01-13 11:14 | PDOC ---
Provider Note Date of Service: DATE: 01/13/21 TIME: 11:13 Provider Note discharge summary dictated # [id number] Justifications for Admission Other Justification GEE FAIRBANKS MD Jan 13, 2021 11:14
[2021-01-13] MEDS: cefTRIAXone IV Push 1 GM VIAL. IVP SCH (13:15)
[2021-01-13] MEDS: HYDROcodone/APAP 5/325MG 1 TAB TABLET PO PRN (13:35)
[2021-01-13 14:49] VITALS: BP 129/64
[2021-01-13 19:00] VITALS: BP 122/46
--- NOTE | 2021-01-13 21:00 | DS ---
DATE OF DISCHARGE: 01/13/2021 CONSULTANTS: 1. Jesse Lizarraga MD. 2. Talia Brizuela MD. 3. Interventional radiologist. FINAL DIAGNOSES: 1. Intractable low back pain secondary to an acute L3 vertebral compression fracture, most likely from osteoporosis. 2. Mechanical fall. 3. Lumbar spinal stenosis. 4. Lumbar muscle spasms. 5. Diabetes mellitus type 2. 6. Hypertension. 7. Hyperlipidemia. 8. Chronic diastolic congestive heart failure. 9. Persistent atrial fibrillation, treated with Coumadin. 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 11. Escherichia coli urinary tract infection prior to admission. HOSPITAL COURSE: The patient is an 85-year-old white female with history of diabetes mellitus type 2, hypertension, hyperlipidemia, persistent atrial fibrillation, treated with Coumadin, who notes a several week history of low back pain. X-ray of the lumbar spine as an outpatient showed lumbar spinal stenosis. She was seen by Dr. Brizuela as an outpatient who ordered a back brace. The patient was in the kitchen and was using a grasper to sheepskin pickler a . The next thing she knew she was on the floor. She hit her head. She sought help at the [facility] Emergency Room where CAT scan of the head and cervical spine were negative for acute fracture. She was complaining of continued pain in her lower back and underwent a CAT scan of the lumbar spine, which showed an L3 compression fracture and underwent a bone scan and the L3 vertebral fracture did take out the isotope consistent with acute L3 lumbar vertebral compression fracture. I spoke with interventional radiologist and wanted to get an MRI of the lumbar spine and to make sure that there was a lumber epidural hematoma, which she was on Coumadin and the MRI confirmed the acute L3 vertebral compression fracture with 40% loss of height. She had difficulty getting up because of severe pain off of a chair and to stand up and also had difficulty with turning in bed and getting out of bed and she received physical therapy and occupational therapy as she was admitted to [facility] following a fall on 01/09/2021. Her Coumadin has been held in anticipation for the L3 lumbar vertebroplasty that can hopefully be done on 01/14/2021 if her INR is 1.5 or less and her INR today is 1.7 as the Coumadin continues to be held. Prior to admission, she had an E. coli urinary tract infection. It was sensitive to ciprofloxacin, which she treated, but it caused visual complaints. Then, she was switched to Bactrim double strength prior to admission. She is currently receiving IV Rocephin as the organism was resistant to cefazolin and on Bactrim can increase the INR. So it interacts with Coumadin, so she will complete her course of IV Rocephin, which was started 01/10/2021 here. She will not need any further antibiotics for urinary tract infection, does not have any dysuria at this time. Her blood sugars were under good control. It is anticipated she will be dismissed tomorrow after kyphoplasty if okay with the interventional radiologist and she will start Coumadin when okay with the interventional radiologist. She was seen by Dr. Lizarraga for her atrial fibrillation and all in all, he felt that she did not have a syncopal episode. She will be dismissed on amlodipine 10 mg every day, aspirin 81 mg every day, carvedilol 6.25 mg b.i.d., Flexeril 5 mg t.i.d. p.r.n., furosemide 40 mg every day, glipizide 2.5 mg every day, [place] 5/325 one tablet at bedtime, losartan 50 mg every day, lovastatin 40 mg every day, metformin 500 mg b.i.d., MiraLax 17 grams daily, potassium chloride 20 mEq every day and Coumadin 1.5 mg every day, which will be resumed when it is okay with interventional radiologist after the procedure tomorrow. She will have a protime and INR checked on 01/21/2021 and has it done weekly. She will be dismissed to home with home health with physical and occupational therapy, make an appointment to see Dr. Cintron in the office next week. GEE CINTRON MD DR: BRUCE/citlaly JOB#: [id number] / [id number]
[2021-01-13] MEDS: ATORVASTATIN CALCIUM 10 MG TABLET. PO SCH (21:32)
[2021-01-13] MEDS: HYDROcodone/APAP 5/325MG 1 TAB TABLET PO SCH (21:33)
[2021-01-13 23:05] VITALS: BP 140/56
[2021-01-14 03:17] VITALS: BP 127/44
[2021-01-14 05:46] LABS: PROTHROMBIN TIME PATIENT 16.7 SEC (11.7-14.0)
[2021-01-14 07:00] VITALS: BP 146/52
[2021-01-14] MEDS: glipiZIDE 5 MG TABLET PO SCH (08:00)
[2021-01-14] MEDS: metFORMIN 500 MG TABLET PO SCH (08:00)
--- NOTE | 2021-01-14 08:09 | PDOC ---
PROGRESS NOTES Date of Service DATE: 01/14/21 TIME: 08:06 Subjective Subjective has back pain with turning in bed and standing up . inr 1.4. discussed with daughter and her nurse. Objective Objective Vital Signs Date Time Temp Pulse Resp B/P (MAP) Pulse Ox O2 Delivery O2 Flow Rate FiO2 01/14/21 03:17 97.6 80 18 127/44 (71) 95 Room Air 97.6 Intake and Output 01/14/21 06:59 Output Total 200 ml Balance -200 ml Output Urine Total 200 ml # Voids 1 # Bowel Movements 1 Physical Exam Abdomen: Soft Heart: Normal S1, Normal S2, No murmurs Extremities: No edema General: Alert HEENT: Atraumatic Lungs: Clear to auscultation Neuro: Normal speech Psych/Mental Status: Mental status NL Skin: No rashes Assessment Assessment Problems Medical Problems:no syncope per cardiology. daughter witnessed fall and is a mechanical fall 2. Low back pain even prior to the fall. 3. Acute L3 vertebral fracture, 4. Lumbar spinal stenosis. 5. Lumbar muscle spasms. 6. Diabetes mellitus type 2. 7. Hypertension. 8. Hyperlipidemia. 9. Chronic diastolic congestive heart failure. 10. Persistent atrial fibrillation, on Coumadin. 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 Labs Laboratory Tests Test 01/12/21 11:01 01/12/21 16:10 01/12/21 20:40 01/13/21 06:15 Glucose (Fingerstick) 194 mg/dL (70-99) 126 mg/dL (70-99) 192 mg/dL (70-99) White Blood Count 4.4 x10^3/uL (4.0-11.0) Red Blood Count 3.86 x10^6/uL (3.50-5.40) Hemoglobin 12.5 g/dL (12.0-15.5) Hematocrit 37.1 % (36.0-47.0) Mean Corpuscular Volume 96 fL (79-100) Mean Corpuscular Hemoglobin 33 pg (25-35) Mean Corpuscular Hemoglobin Concent 34 g/dL (31-37) Red Cell Distribution Width 14.9 % (11.5-14.5) Platelet Count 228 x10^3/uL (140-400) Neutrophils (%) (Auto) 48 % (31-73) Lymphocytes (%) (Auto) 33 % (24-48) Monocytes (%) (Auto) 18 % (0-9) Eosinophils (%) (Auto) 1 % (0-3) Basophils (%) (Auto) 0 % (0-3) Neutrophils # (Auto) 2.1 x10^3/uL (1.8-7.7) Lymphocytes # (Auto) 1.5 x10^3/uL (1.0-4.8) Monocytes # (Auto) 0.8 x10^3/uL (0.0-1.1) Eosinophils # (Auto) 0.0 x10^3/uL (0.0-0.7) Basophils # (Auto) 0.0 x10^3/uL (0.0-0.2) Prothrombin Time 19.3 SEC (11.7-14.0) Prothromb Time International Ratio 1.7 (0.8-1.1) Sodium Level 141 mmol/L (136-145) Potassium Level 4.6 mmol/L (3.5-5.1) Chloride Level 105 mmol/L (98-107) Carbon Dioxide Level 27 mmol/L (21-32) Anion Gap 9 (6-14) Blood Urea Nitrogen 28 mg/dL (7-20) Creatinine 1.1 mg/dL (0.6-1.0) Estimated GFR (Cockcroft-Gault) 47.1 Glucose Level 89 mg/dL (70-99) Calcium Level 9.0 mg/dL (8.5-10.1) Test 01/13/21 07:02 01/13/21 11:18 01/13/21 16:20 01/13/21 20:19 Glucose (Fingerstick) 95 mg/dL (70-99) 164 mg/dL (70-99) 86 mg/dL (70-99) 135 mg/dL (70-99) Test 01/14/21 03:50 01/14/21 07:24 Prothrombin Time 16.7 SEC (11.7-14.0) Prothromb Time International Ratio 1.4 (0.8-1.1) Glucose (Fingerstick) 94 mg/dL (70-99) Laboratory Tests Test 01/13/21 11:18 01/13/21 16:20 01/13/21 20:19 01/14/21 03:50 Glucose (Fingerstick) 164 mg/dL (70-99) 86 mg/dL (70-99) 135 mg/dL (70-99) Prothrombin Time 16.7 SEC (11.7-14.0) Prothromb Time International Ratio 1.4 (0.8-1.1) Test 01/14/21 07:24 Glucose (Fingerstick) 94 mg/dL (70-99) Medications Current Medications Ondansetron HCl (Zofran) 4 mg PRN Q8HRS PRN IV NAUSEA/VOMITING; Start 01/09/21 at 16:30; Stop 01/10/21 at 16:29; Status DC Morphine Sulfate (Morphine Sulfate) 2 mg PRN Q2HR PRN IV PAIN; Start 01/09/21 at 16:30; Stop 01/09/21 at 17:45; Status DC Morphine Sulfate (Morphine Sulfate) 1 mg PRN Q4HRS PRN IV SEVERE PAIN 7-10; Start 01/09/21 at 17:15 Amlodipine Besylate (Norvasc) 10 mg DAILY PO Last administered on 01/13/21 09:53; Start 01/10/21 at 09:00 Carvedilol (Coreg) 6.25 mg BIDWMEALS PO Last administered on 01/13/21at 16:24; Start 01/09/21 at 21:00 Cyclobenzaprine HCl (Flexeril) 5 mg PRN TID PRN PO MUSCLE SPASMS Last administered on 01/09/21at 21:50; Start 01/09/21 at 17:15 Furosemide (Lasix) 40 mg DAILY PO Last administered on 01/13/21at 09:51; Start 01/10/21 at 09:00 Glipizide (Glucotrol) 2.5 mg DAILYWBKFT PO Last administered on 01/13/21at 09:52; Start 01/10/21 at 08:00 Acetaminophen/ Hydrocodone Bitart (Lortab 5/325) 1 tab QHS PO Last administered on 01/13/21 21:33; Start 01/09/21 at 21:00 Acetaminophen/ Hydrocodone Bitart (Lortab 5/325) 1 tab PRN Q4HRS PRN PO SEVERE PAIN 7-10 Last administered on 01/13/21 13:35; Start 01/09/21 at 17:15 Losartan Potassium (Cozaar) 50 mg DAILY PO Last administered on 01/13/21 09:53; Start 01/10/21 at 09:00 Atorvastatin Calcium (Lipitor) 10 mg QHS PO Last administered on 01/13/21 21:32; Start 01/09/21 at 21:00 Metformin HCl (Glucophage) 500 mg BIDWMEALS PO Last administered on 01/13/21 16:24; Start 01/10/21 at 08:00 Polyethylene Glycol (miraLAX PACKET) 17 gm DAILY PO Last administered on 1at 09:52; Start 01/10/21 at 09:00 Potassium Chloride (Klor-Con) 20 meq DAILY PO Last administered on 01/10/21 08:54; Start 01/10/21 at 09:00; Stop 01/10/21 at 10:21; Status DC Warfarin Sodium (Coumadin) 1.5 mg DAILY16 PO Last administered on 01/09/21 19: 30; Start 01/09/21 at 19:30; Stop 01/11/21 at 04:49; Status DC Acetaminophen (Tylenol) 650 mg PRN Q6HRS PRN PO MILD PAIN / TEMP > 100.3'F; Start 01/09/21 at 17:15 Magnesium Hydroxide (Milk Of Magnesia) 2,400 mg PRN DAILY PRN PO CONSTIPATION; Start 01/09/21 at 17:15 Warfarin Sodium (Coumadin Per Physician) 1 each PRN DAILY PRN MC SEE COMMENTS Last administered on 01/12/21 11:24; Start 01/09/21 at 18:30 Potassium Chloride (Klor-Con) 20 meq BID PO Last administered on 01/13/21 09:52; Start 01/10/21 at 21:00; Stop 01/13/21 at 10:45; Status DC Ceftriaxone Sodium (Rocephin) 1 gm Q24H IVP Last administered on 01/13/21at 13:15; Start 01/10/21 at 13:00 Warfarin Sodium (Coumadin) 1 mg DAILY16 PO ; Start 01/11/21 at 16:00; Stop 01/11/21 at 10:15; Status DC Warfarin Sodium (Coumadin) 0.5 mg DAILY16 PO ; Start 01/11/21 at 04:49; Stop 01/11/21 at 10:15; Status DC Vitamin D (Vitamin D3) 2,000 unit DAILY PO Last administered on 01/13/21at 09:51; Start 01/12/21 at 09:00 Lactobacillus Rhamnosus (Culturelle) 1 cap BID PO Last administered on 01/13/21at 21:32; Start 01/11/21 at 21:00 Potassium Chloride (Klor-Con) 20 meq DAILY PO ; Start 01/14/21 at 09:00 Active Scripts Active Hydrocodone-Apap 5-325 (Hydrocodone Bit/Acetaminophen) 1 Tab Tablet 1 Tab PO QHS Warfarin Sodium 1 Mg Tablet 1.5 Mg PO DAILY Cyclobenzaprine Hcl 10 Mg Tablet 5 Mg PO PRN TID PRN Vitamin D3 (Cholecalciferol (Vitamin D3)) 25 Mcg Tablet 2,000 Unit PO DAILY Glipizide 5 Mg Tablet 2.5 Mg PO DAILYWBKFT Furosemide 40 Mg Tablet 40 Mg PO DAILY Reported Carvedilol 25 Mg Tablet 6.25 Mg PO BIDWMEALS Aspirin Ec (Aspirin) 81 Mg Tablet.dr 81 Mg PO Potassium Chloride (Potassium Chloride) 20 Meq Tablet.er 20 Meq PO DAILY Lovastatin 40 Mg Tablet 40 Mg PO HS Metformin Hcl 500 Mg Tablet 500 Mg PO BIDWMEALS Tylenol (Acetaminophen) 325 Mg Tablet 1-2 Tab PO PRN Q4HRS Losartan Potassium 100 Mg Tablet 50 Mg PO DAILY Amlodipine Besylate 10 Mg Tablet 10 Mg PO DAILY Vitals/I & O Vital Sign - Last 24 Hours 01/13/21 01/13/21 01/13/21 01/13/21 09:51 09:53 09:53 10:41 Temp 97.7 97.7 Pulse 89 89 89 96 Resp 18 B/P (MAP) 163/70 163/70 163/70 135/60 (85) Pulse Ox 97 O2 Delivery Room Air 01/13/21 01/13/21 01/13/2121 13:35 14:35 14:49 16:24 Temp 98.0 98.0 Pulse 89 89 Resp 18 B/P (MAP) 129/64 (85) 129/64 Pulse Ox 94 O2 Delivery Room Air Room Air Room Air 01/13/21 01/13/21 01/13/21 01/13/21 19:00 19:30 21:33 22:30 Temp 98.3 98.3 Pulse 76 Resp 18 18 18 B/P (MAP) 122/46 (71) Pulse Ox 100 O2 Delivery Room Air Room Air Room Air Room Air 01/13/21 01/14/21 23:05 03:17 Temp 97.4 97.6 97.4 97.6 Pulse 95 80 Resp 18 18 B/P (MAP) 140/56 (84) 127/44 (71) Pulse Ox 97 95 O2 Delivery Room Air Room Air Intake and Output 01/13/21 01/13/21 01/14/21 14:59 22:59 06:59 Output Total 200 ml Balance -200 ml Justifications for Admission Other Justification GEE FAIRBANKS MD Jan 14, 2021 08:09
[2021-01-14] MEDS: CARVEDILOL 6.25 MG TABLET. PO SCH (08:13)
[2021-01-14] MEDS: LOSARTAN POTASSIUM 50 MG TABLET. PO SCH (08:21)
[2021-01-14] MEDS: LACTOBACILLUS RHAMNOSUS GG 1 CAPSULE. PO SCH (08:21)
[2021-01-14] MEDS: CHOLECALCIFEROL (VITAMIN D3) 1,000 UNIT TABLET PO SCH (08:22)
[2021-01-14] MEDS: FUROSEMIDE 40 MG TABLET. PO SCH (08:22)
[2021-01-14] MEDS: POLYETHYLENE GLYCOL 3350 17 GM PACKET. PO SCH (08:22)
[2021-01-14] MEDS: amLODIPine BESYLATE 5 MG TABLET PO SCH (08:22)
[2021-01-14] MEDS ORDERED: POTASSIUM CHLORIDE 20 MEQ TABLET.ER. PO SCH (09:00)
--- NOTE | 2021-01-14 09:15 | PDOC ---
PROGRESS NOTES Date of Service DATE: 01/14/21 TIME: 09:12 Subjective Subjective No new complaints. Objective Objective Vital Signs Date Time Temp Pulse Resp B/P (MAP) Pulse Ox O2 Delivery O2 Flow Rate FiO2 01/14/21 08:13 99 146/52 01/14/21 07:00 97.8 18 97 Room Air 97.8 Intake and Output 01/14/21 07:00 Output Total 200 ml Balance -200 ml Output Urine Total 200 ml # Voids 1 # Bowel Movements 1 Physical Exam Physical Exam She is alert,supine in bed and no change with his neurological status and she still requires some assistance with scooting up in bed. Assessment Assessment Problems Medical Problems: (1) Back pain Status: Acute Plan Plan of [facility] with home health physical therapy follow up after kyphoplasty. Comment Review of Relevant I have reviewed the following items fabi (where applicable) has been applied. Labs Laboratory Tests Test 01/12/21 11:01 01/12/21 16:10 01/12/21 20:40 01/13/21 06:15 Glucose (Fingerstick) 194 mg/dL (70-99) 126 mg/dL (70-99) 192 mg/dL (70-99) White Blood Count 4.4 x10^3/uL (4.0-11.0) Red Blood Count 3.86 x10^6/uL (3.50-5.40) Hemoglobin 12.5 g/dL (12.0-15.5) Hematocrit 37.1 % (36.0-47.0) Mean Corpuscular Volume 96 fL (79-100) Mean Corpuscular Hemoglobin 33 pg (25-35) Mean Corpuscular Hemoglobin Concent 34 g/dL (31-37) Red Cell Distribution Width 14.9 % (11.5-14.5) Platelet Count 228 x10^3/uL (140-400) Neutrophils (%) (Auto) 48 % (31-73) Lymphocytes (%) (Auto) 33 % (24-48) Monocytes (%) (Auto) 18 % (0-9) Eosinophils (%) (Auto) 1 % (0-3) Basophils (%) (Auto) 0 % (0-3) Neutrophils # (Auto) 2.1 x10^3/uL (1.8-7.7) Lymphocytes # (Auto) 1.5 x10^3/uL (1.0-4.8) Monocytes # (Auto) 0.8 x10^3/uL (0.0-1.1) Eosinophils # (Auto) 0.0 x10^3/uL (0.0-0.7) Basophils # (Auto) 0.0 x10^3/uL (0.0-0.2) Prothrombin Time 19.3 SEC (11.7-14.0) Prothromb Time International Ratio 1.7 (0.8-1.1) Sodium Level 141 mmol/L (136-145) Potassium Level 4.6 mmol/L (3.5-5.1) Chloride Level 105 mmol/L (98-107) Carbon Dioxide Level 27 mmol/L (21-32) Anion Gap 9 (6-14) Blood Urea Nitrogen 28 mg/dL (7-20) Creatinine 1.1 mg/dL (0.6-1.0) Estimated GFR (Cockcroft-Gault) 47.1 Glucose Level 89 mg/dL (70-99) Calcium Level 9.0 mg/dL (8.5-10.1) Test 01/13/21 07:02 01/13/21 11:18 01/13/21 16:20 01/13/21 20:19 Glucose (Fingerstick) 95 mg/dL (70-99) 164 mg/dL (70-99) 86 mg/dL (70-99) 135 mg/dL (70-99) Test 01/14/21 03:50 01/14/21 07:24 Prothrombin Time 16.7 SEC (11.7-14.0) Prothromb Time International Ratio 1.4 (0.8-1.1) Glucose (Fingerstick) 94 mg/dL (70-99) Laboratory Tests Test 01/13/21 11:18 01/13/21 16:20 01/13/21 20:19 01/14/21 03:50 Glucose (Fingerstick) 164 mg/dL (70-99) 86 mg/dL (70-99) 135 mg/dL (70-99) Prothrombin Time 16.7 SEC (11.7-14.0) Prothromb Time International Ratio 1.4 (0.8-1.1) Test 01/14/21 07:24 Glucose (Fingerstick) 94 mg/dL (70-99) Medications Current Medications Ondansetron HCl (Zofran) 4 mg PRN Q8HRS PRN IV NAUSEA/VOMITING; Start 01/09/21 at 16:30; Stop 01/10/21 at 16:29; Status DC Morphine Sulfate (Morphine Sulfate) 2 mg PRN Q2HR PRN IV PAIN; Start 01/09/21 at 16:30; Stop 01/09/21 at 17:45; Status DC Morphine Sulfate (Morphine Sulfate) 1 mg PRN Q4HRS PRN IV SEVERE PAIN 7-10; Start 01/09/21 at 17:15 Amlodipine Besylate (Norvasc) 10 mg DAILY PO Last administered on 01/13/21 09:53; Start 01/10/21 at 09:00 Carvedilol (Coreg) 6.25 mg BIDWMEALS PO Last administered on 01/14/21 08:13; Start 01/09/21 at 21:00 Cyclobenzaprine HCl (Flexeril) 5 mg PRN TID PRN PO MUSCLE SPASMS Last administered on 01/09/21 21:50; Start 01/09/21 at 17:15 Furosemide (Lasix) 40 mg DAILY PO Last administered on 01/13/21 09:51; Start 01/10/21 at 09:00 Glipizide (Glucotrol) 2.5 mg DAILYWBKFT PO Last administered on 01/13/21 09:52; Start 01/10/21 at 08:00 Acetaminophen/ Hydrocodone Bitart (Lortab 5/325) 1 tab QHS PO Last administered on 01/13/21 21:33; Start 01/09/21 at 21:00 Acetaminophen/ Hydrocodone Bitart (Lortab 5/325) 1 tab PRN Q4HRS PRN PO SEVERE PAIN 7-10 Last administered on 01/13/21 13:35; Start 01/09/21 at 17:15 Losartan Potassium (Cozaar) 50 mg DAILY PO Last administered on 01/13/21 09:53; Start 01/10/21 at 09:00 Atorvastatin Calcium (Lipitor) 10 mg QHS PO Last administered on 01/13/21 21:32; Start 01/09/21 at 21:00 Metformin HCl (Glucophage) 500 mg BIDWMEALS PO Last administered on 01/13/21 16:24; Start 01/10/21 at 08:00 Polyethylene Glycol (miraLAX PACKET) 17 gm DAILY PO Last administered on 01/13/21 09:52; Start 01/10/21 at 09:00 Potassium Chloride (Klor-Con) 20 meq DAILY PO Last administered on 01/10/21at 08:54; Start 01/10/21 at 09:00; Stop 01/10/21 at 10:21; Status DC Warfarin Sodium (Coumadin) 1.5 mg DAILY16 PO Last administered on 01/09/21at 19:30; Start 01/09/21 at 19:30; Stop 01/11/21 at 04:49; Status DC Acetaminophen (Tylenol) 650 mg PRN Q6HRS PRN PO MILD PAIN / TEMP > 100.3'F; Start 01/09/21 at 17:15 Magnesium Hydroxide (Milk Of Magnesia) 2,400 mg PRN DAILY PRN PO CONSTIPATION; Start 01/09/21 at 17:15 Warfarin Sodium (Coumadin Per Physician) 1 each PRN DAILY PRN MC SEE COMMENTS Last administered on 01/12/21at 11:24; Start 01/09/21 at 18:30 Potassium Chloride (Klor-Con) 20 meq BID PO Last administered on 01/13/21 09:52; Start 01/10/21 at 21:00; Stop 01/13/21 at 10:45; Status DC Ceftriaxone Sodium (Rocephin) 1 gm Q24H IVP Last administered on 01/13/21 13:15; Start 01/10/21 at 13:00 Warfarin Sodium (Coumadin) 1 mg DAILY16 PO ; Start 01/11/21 at 16:00; Stop 01/11/21 at 10:15; Status DC Warfarin Sodium (Coumadin) 0.5 mg DAILY16 PO ; Start 01/11/21 at 04:49; Stop 01/11/21 at 10:15; Status DC Vitamin D (Vitamin D3) 2,000 unit DAILY PO Last administered on 01/13/21 09:51; Start 01/12/21 at 09:00 Lactobacillus Rhamnosus (Culturelle) 1 cap BID PO Last administered on 01/13/21 21:32; Start 01/11/21 at 21:00 Potassium Chloride (Klor-Con) 20 meq DAILY PO ; Start 01/14/21 at 09:00 Active Scripts Active Hydrocodone-Apap 5-325 (Hydrocodone Bit/Acetaminophen) 1 Tab Tablet 1 Tab PO QHS Warfarin Sodium 1 Mg Tablet 1.5 Mg PO DAILY Cyclobenzaprine Hcl 10 Mg Tablet 5 Mg PO PRN TID PRN Vitamin D3 (Cholecalciferol (Vitamin D3)) 25 Mcg Tablet 2,000 Unit PO DAILY Glipizide 5 Mg Tablet 2.5 Mg PO DAILYWBKFT Furosemide 40 Mg Tablet 40 Mg PO DAILY Reported Carvedilol 25 Mg Tablet 6.25 Mg PO BIDWMEALS Aspirin Ec (Aspirin) 81 Mg Tablet.dr 81 Mg PO Potassium Chloride (Potassium Chloride) 20 Meq Tablet.er 20 Meq PO DAILY Lovastatin 40 Mg Tablet 40 Mg PO HS Metformin Hcl 500 Mg Tablet 500 Mg PO BIDWMEALS Tylenol (Acetaminophen) 325 Mg Tablet 1-2 Tab PO PRN Q4HRS Losartan Potassium 100 Mg Tablet 50 Mg PO DAILY Amlodipine Besylate 10 Mg Tablet 10 Mg PO DAILY Vitals/I & O Vital Sign - Last 24 Hours 01/13/21 01/13/21 01/13/21 01/13/21 09:51 09:53 09:53 10:41 Temp 97.7 97.7 Pulse 89 89 89 96 Resp 18 B/P (MAP) 163/70 163/70 163/70 135/60 (85) Pulse Ox 97 O2 Delivery Room Air 01/13/21 01/13/21 01/13/21 01/13/21 13:35 14:35 14:49 16:24 Temp 98.0 98.0 Pulse 89 89 Resp 18 B/P (MAP) 129/64 (85) 129/64 Pulse Ox 94 O2 Delivery Room Air Room Air Room Air 01/13/21 01/13/21 01/13/21 01/13/21 19:00 19:30 21:33 22:30 Temp 98.3 98.3 Pulse 76 Resp 18 18 18 B/P (MAP) 122/46 (71) Pulse Ox 100 O2 Delivery Room Air Room Air Room Air Room Air 01/13/21 01/14/21 01/14/21 01/14/21 23:05 03:17 07:00 08:13 Temp 97.4 97.6 97.8 97.4 97.6 97.8 Pulse 95 80 99 99 Resp 18 18 18 B/P (MAP) 140/56 (84) 127/44 (71) 146/52 (83) 146/52 Pulse Ox 97 95 97 O2 Delivery Room Air Room Air Room Air Intake and Output 01/13/21 01/13/21 01/14/21 15:00 23:00 07:00 Output Total 200 ml Balance -200 ml Justifications for Admission Other Justification ABRAHAM BOX MD Jan 14, 2021 09:15
[2021-01-14] MEDS ORDERED: LIDOCAINE WITH 8.4% SOD BICARB 3 ML DISP.SYRIN. ONE ×2 (09:46→09:48)
[2021-01-14] MEDS ORDERED: IOHEXOL 240 MG/ML 50ML VIAL. ONE (09:46)
[2021-01-14] MEDS ORDERED: IOHEXOL 240 MG/ML 50ML VIAL. INT ART ONE (10:15)
[2021-01-14] MEDS ORDERED: fentaNYL PF VIAL 100 MCG/2 ML VIAL IV ONE (10:15)
[2021-01-14] MEDS ORDERED: ceFAZolin SODIUM IV Push 1 GM VIAL. IVP ONE (10:15)
[2021-01-14] MEDS ORDERED: MIDAZOLAM HCL/PF 5 MG/5 ML VIAL. IV ONE (10:15)
--- NOTE | 2021-01-14 10:38 | NUR ---
SW following. Discussed with RN, pt from home, room air, ada diet, COVID-19 negative. Pt having a kyphoplasty today, can discharge home with [facility]placed By [facility], if okay with Theresa Aleman RN notified. SW will continue to follow.
[2021-01-14] MEDS ORDERED: LIDOCAINE WITH 8.4% SOD BICARB 3 ML DISP.SYRIN. INJ ONE (11:00)
[2021-01-14 11:16] VITALS: BP 138/82
[2021-01-14 11:45] VITALS: BP 136/47
[2021-01-14] MEDS: cefTRIAXone IV Push 1 GM VIAL. IVP SCH (12:40)
[2021-01-14] MEDS: HYDROcodone/APAP 5/325MG 1 TAB TABLET PO PRN (12:53)
[2021-01-14 15:00] VITALS: BP 140/53
--- NOTE | 2021-01-15 08:29 | RAD ---
Fluoroscopically guided kyphoplasty L3 Indication: compression fracture, pathologic in nature secondary to bone demineralization with severe back pain, refractory to conservative treatment measures, and limited activities of daily living. Fluoro time:7 Minutes Dose area product: 38 Gycm2 Moderate sedation: The patient was appropriately monitored by a qualified independent observer throughout the course of the moderate sedation. [id number] sedation time:37 minutes Consent: The risks and benefits of the procedure were discussed with the patient. Informed consent was obtained. The patient was brought to the fluoroscopy suite and placed in the prone position. A timeout procedure was performed. Preprocedural antibiotics were administered. Procedure: The overlying skin was prepped and draped in the usual sterile fashion. All elements of maximal sterile barrier technique including the use of a cap, mask, sterile gown, sterile gloves, large sterile sheet, appropriate hand hygiene, and 2% chlorhexidine for cutaneous antisepsis (or acceptable alternative antiseptic per current guidelines) were followed for this procedure. Using a left transpedicular approach, and direct fluoroscopic guidance, a trocar needle was advanced to the posterior third of the targeted L3 vertebral body. Vertebral augmentation balloon was then coaxially introduced through the needle, into the more central vertebral body and was deployed. A curved cement delivery needle was advanced into the contralateral vertebral body. Contrast opacified polymethylmethacrylate was then very slowly and carefully introduced through the vertebral augmentation needle, using strict fluoroscopic control. Once adequate filling had been achieved the needles were removed and manual pressure was held. No significant extravasation or complication was identified. Sterile dressing was applied. Patient tolerated the procedure well, without apparent complication. Impression: Fluoroscopically guided kyphoplasty, L3
== END 2021-01-14 15:48 | disposition home health service (06) | DRG 516 ==
LOC: ER 12:54 → 6 SOUTH 16:20 → 4 NORTH 01-11 18:00
PROVIDERS: ADMIT Internal Medicine; ATTEND Internal Medicine
PROC: 0QS03ZZ Reposition Lumbar Vertebra, Percutaneous Approach (ICD-10-PCS; principal; 2021-01-14)
PROC: 0QU03JZ Supplement Lumbar Vertebra with Synthetic Substitute, Percutaneous Approach (ICD-10-PCS; 2021-01-14)
DX: S32.030A Wedge compression fracture of third lumbar vertebra, initial encounter for closed fracture (principal); I50.32 Chronic diastolic (congestive) heart failure; I48.19 Other persistent atrial fibrillation; N17.9 Acute kidney failure, unspecified; N39.0 Urinary tract infection, site not specified; M47.816 Spondylosis without myelopathy or radiculopathy, lumbar region; M48.061 Spinal stenosis, lumbar region without neurogenic claudication; M62.838 Other muscle spasm; E11.9 Type 2 diabetes mellitus without complications; I11.0 Hypertensive heart disease with heart failure; E78.5 Hyperlipidemia, unspecified; Z79.01 Long term (current) use of anticoagulants; M79.662 Pain in left lower leg; W07.XXXA Fall from chair, initial encounter; E87.6 Hypokalemia; I27.20 Pulmonary hypertension, unspecified; B96.20 Unspecified Escherichia coli [E. coli] as the cause of diseases classified elsewhere; M17.0 Bilateral primary osteoarthritis of knee; Z79.82 Long term (current) use of aspirin; Z79.84 Long term (current) use of oral hypoglycemic drugs; Z79.899 Other long term (current) drug therapy; Z82.49 Family history of ischemic heart disease and other diseases of the circulatory system; Z87.81 Personal history of (healed) traumatic fracture; Z91.040 Latex allergy status; G89.29 Other chronic pain; Z66 Do not resuscitate; Y93.89 Activity, other specified; Y92.89 Other specified places as the place of occurrence of the external cause; Y99.8 Other external cause status
CPT/HCPCS: 22514; 36415; 70450; 71045; 72125; 72131; 72148; 73521; 73590; 78306; 80048; 80053; 80061; 82962; 83735; 85025; 85610; 87426; 93005; 99152; 99153; 99285; A9503; C1713; J0690; J0696; J2250; J3010; J3490; Q9966; U0003; U0005; 97110-GO; 97116-GP; 97530-GO; 97530-GP; 97535-GO; G0378